=== PATIENT | female | born 1950 | race Caucasian/White ===

== ENCOUNTER → 2016-12-17 | Outpatient (CLI) | payer BC, OTHER ==
[~2016-12-17] MED LIST: ATOR-26 PO; CYAN10005 PO; HYD10 PO; HYDR10TA52 PO; SYN112 PO; WARF-246 PO; WARF-284 PO
[2016-12-17 18:14] LABS: ALT/SGPT 17 U/L (12-78); BLOOD UREA NITROGEN 16 mg/dl (7-18); BUN/CREATININE RATIO 17.7 (10-20); CALCIUM 8.5 mg/dl (8.5-10.1); CARBON DIOXIDE 25 mmol/L (21-32); CHLORIDE 100 mmol/L (98-107); CHOLESTEROL 220 mg/dl (0-200); CREATININE 0.91 mg/dl (0.60-1.20); GLUCOSE 97 mg/dl (70-99); POTASSIUM 3.5 mmol/L (3.5-5.1); SODIUM 135 mmol/L (136-145); TRIGLYCERIDES 256 mg/dl (0-150); VERY LOW DENSITY LIPOPROT CALC 51 mg/dl
[2016-12-17 18:21] LABS: BASO % 0.3 %; BASO ABS # 0.02 K/uL (0-0.2); COMPLETE YES; EOS % 0.8 %; HEMATOCRIT 34.7 % (37-47); IG% 0.2 %; LYMPH % 20.7 %; LYMPH ABS # 1.29 K/uL (1.2-3.4); MEAN CELL VOLUME 90.6 fL (80-100); MEAN CORPUSCULAR HEMOGLOBIN 30.8 pg (25-34); MEAN PLATELET VOLUME 9.7 fL (7.4-10.4); PLATELET COUNT 280 K/uL (130-400); RED BLOOD COUNT 3.83 M/uL (4.2-5.4); WHITE BLOOD COUNT 6.23 K/uL (4.8-10.8)
[2016-12-17 18:25] LABS: ALB/GLOB RATIO 0.9 (0.9-2); ALKALINE PHOSPHATASE 75 U/L (45-117); AST/SGOT 18 U/L (15-37); CHOLESTEROL/HDL RATIO 5.2; HDL CHOLESTEROL 42 mg/dl; LDL CHOLESTEROL CALCULATED 127 mg/dl; THYROID STIMULATING HORMONE 0.021 uIu/ml (0.300-4.500)
== END | disposition home or self-care (01) ==
LOC: C.LABBFT 12:14
PROVIDERS: ATTEND Internal Medicine Endocrinology, Diabetes & Metabolism
DX: E53.8 Deficiency of other specified B group vitamins (principal); E78.00 Pure hypercholesterolemia, unspecified; E23.0 Hypopituitarism; D64.9 Anemia, unspecified; E55.9 Vitamin D deficiency, unspecified; I82.4Z9 Acute embolism and thrombosis of unspecified deep veins of unspecified distal lower extremity

== ENCOUNTER → 2017-02-15 | Outpatient (CLI) | payer BC, OTHER ==
--- NOTE | 2017-02-24 10:49 | CODING QUERY MEDICAL NECESSITY ---
CQSUPPORTING DIAGNOSIS NEEDED A supporting diagnosis is required for the test/procedure performed on this patient in order for us to be reimbursed by the patient's insurance. Please provide a supporting diagnosis for the following test/procedure listed below next to the test name along with your signature. *If there is no additional diagnosis for this patient that would support the following test/procedure please document that below next to the test/procedure. Test(s)/Procedure(s) that require a supporting diagnosis: DOS 02/15/17 VITAMIN D TEST Provider Signature: Date: Thank you Chrystal Manuel Health Information Management Once completed, please kindly fax back to [phone] For questions please call [phone]
== END | disposition home or self-care (01) ==
LOC: C.LABBFT 11:59
PROVIDERS: ATTEND Internal Medicine
DX: E53.8 Deficiency of other specified B group vitamins (principal); E55.9 Vitamin D deficiency, unspecified; M81.0 Age-related osteoporosis without current pathological fracture; I82.4Z9 Acute embolism and thrombosis of unspecified deep veins of unspecified distal lower extremity

== ENCOUNTER → 2017-07-27 | Outpatient (CLI) | payer OTHER, MEDICARE | END | disposition home or self-care (01) | LOC: C.PAPS 14:57 | PROVIDERS: ATTEND Obstetrics & Gynecology | DX: Z12.4 Encounter for screening for malignant neoplasm of cervix (principal) ==

== ENCOUNTER → 2017-11-25 | Outpatient (CLI) | payer OTHER, MEDICARE | END | disposition home or self-care (01) | LOC: C.LABBFT 14:46 | PROVIDERS: ATTEND Internal Medicine Endocrinology, Diabetes & Metabolism | DX: E23.0 Hypopituitarism (principal); E03.8 Other specified hypothyroidism; E27.49 Other adrenocortical insufficiency ==

== ENCOUNTER → 2018-05-31 | Day surgery (SDC) | payer OTHER, MEDICARE ==
[2018-05-24 09:02] VITALS: BMI 38.0
[~2018-05-31] VITALS: Ht 162.6 cm; Wt 101.4 kg
[~2018-05-31] MED LIST changes: -ATOR-26 PO; +BUPR-83 PO; +CALC0.5C2 PO; -CYAN10005 PO; +LEVO112T4 PO; +LIDOCAINE HCL 2% 2 ML VIAL (20MG/ML) ONE; +PROPOFOL IV EMULSION 10 MG/ML 20 ML VIAL ONE; +SODIUM CHLORIDE 0.9% 500ML 500 ML IV ONE; -SYN112 PO; -WARF-246 PO; -WARF-284 PO; +WARF5TAB7 PO
[2018-05-31 10:43] VITALS: Ht 162.6 cm; Wt 101.4 kg
--- NOTE | 2018-05-31 11:04 | Endo History and Physical ---
History & Physical Date of Service: May 31, 2018. Chief Complaint: SCREENING FOR COLON CANCER Referring Physician: DR BENAVIDES History of Present Illness 67 yo CF who presents for screening colonoscopy. Past Surgical History Hx Cardiac Surgery: No Hx Internal Defibrillator: No Hx Pacemaker: No Hx Abdominal Surgery: No Hx of Implantable Prosthesis: No Hx Post-Op Nausea and Vomiting: No Hx Cancer Surgery: No Hx Thoracic Surgery: No Hx Orthopedic: No Hx Urinary Tract Surgery: No Family History None Social History Smoking Status: Never Smoker Hx Substance Use: No Hx Alcohol Use: No Allergies Coded Allergies: Penicillins (Verified Allergy, Mild, hives, 05/24/18) Sertraline (Verified Allergy, Unknown, acting funny, 05/24/18) Current Medications Reported Home Medications Medications Dose Route/Sig Max Daily Dose Days Date Category Rocaltrol (Calcitriol) 0.5 Mcg Cap 1 Cap PO BID 05/24/18 Reported Jantoven (Warfarin Sodium) 5 Mg Tab 1.5 Mg PO WK ON Tuesdays05/24/18 Reported Jantoven (Warfarin Sodium) 5 Mg Tab 5 Mg PO 6XWK 05/24/18 Reported Levothyroxine Sodium 112 Mcg Tab 1 Tab PO QAM 05/24/18 Reported Wellbutrin (Bupropion HCl) 100 Mg Tab 200 Mg PO QAM 05/24/18 Reported Cortef (Hydrocortisone) 10 Mg Tab 15 Mg PO QAM 05/24/18 Reported Cortef (Hydrocortisone) 10 Mg Tab 5 Mg PO QPM 05/24/18 Reported Vital Signs Weight (Kilograms): 101.36 Height (Feet): 5 Height (Inches): 4 Date Time Temp Pulse Resp B/P (MAP) Pulse Ox O2 Delivery O2 Flow Rate FiO2 05/31/18 10:42 36.8 85 18 172/84 (113) 95 Room Air Physical Exam General Appearance: WD/WN, no apparent distress Respiratory/Chest: Auscultation: breath sounds normal Cardiovascular: Heart Auscultation: RRR Abdomen: Bowel Sounds: normal Inspection & Palpation: soft, non-distended, no tenderness, guarding & rebound Assessment and Plan Assessment: 67 yo CF who presents for screening colonoscopy. Plan: Proceed with colonoscopy.
--- NOTE | 2018-05-31 12:33 | Discharge Instructions ---
Endoscopy Patient Instructions Date / Procedure(s) Performed May 31, 2018. Colonoscopy Allergy Information Coded Allergies: Penicillins (Verified Allergy, Mild, hives, 05/24/18) Sertraline (Verified Adverse Reaction, Unknown, acting funny, 05/31/18) Discharge Date / Findings May 31, 2018. Colon polyp Diverticulosis Internal hemorrhoids Medication Instructions Stopped Medication(s): ALL MEDICATIONS STOPPED SINCE 05/28/18 OK to resume all medications today as prescribed Reported Home Medications Medications Dose Route/Sig Max Daily Dose Days Date Category Rocaltrol (Calcitriol) 0.5 Mcg Cap 1 Cap PO BID 05/24/18 Reported Jantoven (Warfarin Sodium) 5 Mg Tab 1.5 Mg PO WK ON Tuesdays05/24/18 Reported Jantoven (Warfarin Sodium) 5 Mg Tab 5 Mg PO 6XW05/24/18 Reported Levothyroxine Sodium 112 Mcg Tab 1 Tab PO QAM 05/24/18 Reported Wellbutrin (Bupropion HCl) 100 Mg Tab 200 Mg PO QAM 05/24/18 Reported Cortef (Hydrocortisone) 10 Mg Tab 15 Mg PO QAM 05/24/18 Reported Cortef (Hydrocortisone) 10 Mg Tab 5 Mg PO QPM 05/24/18 Reported Provider Instructions Activity Restrictions - No exercising or heavy lifting for 24 hours. - Do not drink alcohol the day of the procedure. - Do not drive a car or operate machinery until the day after the procedure. - Do not make any important decisions or sign important papers in 24 hours after the procedure. Following Day: - Return to full activity which may include returning to work/school. Diet Start your diet with liquids and light foods (jello, soup, juice, toast). Then eat your usual diet if not nauseated. Treatment For Common After Affects For mild abdominal pain, bloating, or excessive gas: - Rest - Eat lightly - Lie on right side Follow-Up Information Follow-up with DR BENAVIDES as scheduled Anesthesia Information What You Should Know You have had a procedure that required some medicine to reduce anxiety and discomfort. This treatment is called moderate sedation. After receiving the treatment, you may be sleepy, but you will be able to breathe on your own. The effects of the treatment may last for several hours. Follow these instructions along with Activity/Diet recommendations noted above: * Do NOT do anything where dizziness or clumsiness would be dangerous. * Rest quietly at home today, then you can be up and about tomorrow. * Have a responsible person stay with you the rest of today. * You may have had an I.V. today. If so, you may take the dressing off later today. Recommendations Call your doctor if: * Trouble breathing * Continuous vomiting for more than 24 hours * Temperature above 101 degrees * Severe abdominal pain or bloating * Pain not relieved by pain medicine ordered * There is increased drainage or redness from any incision * A large amount of rectal bleeding greater than 2-3 tablespoons. (If you had a polyp/s removed or have hemorrhoids, a small amount of blood - from the rectum is to be expected.) * You have any unanswered questions or concerns. IN THE EVENT OF A SERIOUS EMERGENCY, GO TO THE NEAREST EMERGENCY ROOM Your discharge instructions were prepared by provider Marino Gonzalez. Patient Instructions Signature Page Lucia Schulz Patient (or Guardian) Signature/Date: I have read and understand the instructions given to me by my caregivers. Caregiver/RN/Doctor Signature/Date: The above-named patient and/or guardian has received patient instructions on this date. + Original Patient Signature Page (only) stays with chart. Please make copy for patient.
--- NOTE | 2018-05-31 12:41 | GI REPORT ---
Patient Name: Lucia Schulz Procedure Date: 05/31/2018 11:53 AM Date of : 1950 Admit Type: Outpatient Age: 67 Gender: Female Attending MD: Marino Gonzalez DO Procedure: Colonoscopy Providers: Marino Gonzalez DO Referring MD: Jerardo Grace Indications: Screening for colorectal malignant neoplasm Medicines: Monitored Anesthesia Care Complications: No immediate complications. Estimated Blood Loss: Estimated blood loss: none. Procedure: Pre-Anesthesia Assessment: - Prior to the procedure, a History and Physical was performed, and patient medications and allergies were reviewed. The patient's tolerance of previous anesthesia was also reviewed. The risks and benefits of the procedure and the sedation options and risks were discussed with the patient. All questions were answered, and informed consent was obtained. Prior Anticoagulants: The patient has taken no previous anticoagulant or antiplatelet agents. ASA Grade Assessment: II - A patient with mild systemic disease. After reviewing the risks and benefits, the patient was deemed in satisfactory condition to undergo the procedure. After I obtained informed consent, the scope was passed under direct vision. Throughout the procedure, the patient's blood pressure, pulse, and oxygen saturations were monitored continuously. The scope was introduced through the anus and advanced to the terminal ileum. The colonoscopy was performed without difficulty. The patient tolerated the procedure well. The quality of the bowel preparation was good. The terminal ileum, ileocecal valve, appendiceal orifice, and rectum were photographed. Findings: The perianal and digital rectal examinations were normal. A 4 mm polyp was found in the sigmoid colon. The polyp was sessile. The polyp was removed with a cold snare. Resection and retrieval were complete. Multiple small-mouthed diverticula were found in the sigmoid colon. Non-bleeding internal hemorrhoids were found during retroflexion. The hemorrhoids were small. Impression: - One 4 mm polyp in the sigmoid colon, removed with a cold snare. Resected and retrieved. - Diverticulosis in the sigmoid colon. - Non-bleeding internal hemorrhoids. Recommendation: - Resume previous diet. - Continue present medications. - Repeat colonoscopy for surveillance based on pathology results. - Return to primary care physician as previously scheduled. Marino Gonzalez DO 05/31/2018 12:41:03 PM This report has been signed electronically. Note Initiated On: 05/31/2018 11:53 AM Number of Addenda: 0 I attest to the content of the Intraoperative Record and orders documented therein, exceptions below {[id number]}
[2018-05-31 13:03] VITALS: BP 141/77; PULSE 66; O2SAT 100
--- NOTE | 2018-05-31 13:33 | Anesthesiology Progress Note ---
Anesthesia Post Op Note Date & Time May 31, 2018 at 13:32 Vital Signs Pain Intensity: 0 Vital Signs Past 12 Hours Date Time Temp Pulse Resp B/P (MAP) Pulse Ox O2 Delivery O2 Flow Rate FiO2 05/31/18 13:03 66 18 141/77 (98) 100 Room Air 05/31/18 12:49 72 18 150/57 (88) 100 Room Air 05/31/18 12:34 68 16 133/53 (79) 95 Room Air 05/31/18 10:42 36.8 85 18 172/84 (113) 95 Room Air Notes Mental Status: alert / awake / arousable, participated in evaluation Pt Amnestic to Procedure: Yes Nausea / Vomiting: adequately controlled Pain: adequately controlled Airway Patency, RR, SpO2: stable & adequate BP & HR: stable & adequate Hydration State: stable & adequate Anesthetic Complications: no major complications apparent
== END | disposition home or self-care (01) ==
LOC: C.GI 09:51
PROVIDERS: ATTEND Internal Medicine
DX: Z12.11 Encounter for screening for malignant neoplasm of colon (principal); D12.5 Benign neoplasm of sigmoid colon; K57.30 Diverticulosis of large intestine without perforation or abscess without bleeding; K64.8 Other hemorrhoids; F32.9 Major depressive disorder, single episode, unspecified; Z88.0 Allergy status to penicillin; Z88.8 Allergy status to other drugs, medicaments and biological substances; Z79.01 Long term (current) use of anticoagulants; Z79.899 Other long term (current) drug therapy

== ENCOUNTER 2020-05-03 09:28 | Inpatient (IN) ==
--- NOTE | 2020-04-12 14:49 | PAT Medication Instructions ---
Medication Instructions Date of Service April 12, 2020 Home Medications Medication Instructions Recorded calcitriol 0.5 mcg capsule 0.5 mcg PO BID #180 cap 02/09/20 calcitriol 0.5 mcg capsule 0.5 mcg PO BID acetaminophen [Tylenol Extra Strength] 1,000 - 1,500 mg PO Q6H PRN hydrocortisone 5 - 15 mg PO UD levothyroxine 137 mcg PO QAM warfarin 5 - 7.5 mg PO DAILY ASK your prescriber and surgeon warfarin 5 - 7.5 mg PO DAILY DO NOT take the morning of surgery calcitriol 0.5 mcg capsule 0.5 mcg PO BID Take morning of surgery With a small sip of water, OTHERWISE NOTHING TO EAT OR DRINK AFTER MIDNIGHT: levothyroxine 137 mcg PO QAM acetaminophen [Tylenol Extra Strength] 1,000 - 1,500 mg PO Q6H PRN (okay to take up to 4 hours prior to surgery if needed) hydrocortisone 5 - 15 mg PO UD (check with prescriber if stress dose needed) Take evening before surgery calcitriol 0.5 mcg capsule 0.5 mcg PO BID acetaminophen [Tylenol Extra Strength] 1,000 - 1,500 mg PO Q6H PRN hydrocortisone 5 - 15 mg PO UD Other Notes If you have any questions please call us at [phone] or [phone] or [phone] or [phone]
--- NOTE | 2020-04-17 11:43 | Anesthesiology Consultation ---
Date of Service April 17, 2020 Assessment & Plan (1) Encounter for pre-operative examination: Chart Review Chart Review: Acceptable Risk for Surgery (pending Covid testing) and Patient seen in Pre Admission Testing -Check PT/INR DOS Seen by endo 01/31/20 telemedicine visit= followed since 1999 in office- has very infrequent visits due to anxiety. 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 On replacement. Her last pituitary MRI was in 2009, almost no pituitary tissue, unchanged from 2002. Repeat circa 2019 (--> 2020) unless symptoms suggest to do sooner. (Pt states she stress doses medication PRN- was encouraged to check with steroid prescriber to see how much hydrocortisone needs stressed dose) Per PAT appt 04/17/20, resides in [facility]. Wears mask in public. Educated on following up with ulises's office re: Covid testing three days prior surgery. Pt educated on social distancing, self quarantining, and wearing mask both for herself and household contacts. Teaching & Discussion Pre-Anesthesia Teaching/Discussion Notes: Instructed NPO after midnight before surgery,except medications with 15 cc of water. Medication instructions provided according to the PAT guidelines. History Surgery Operation Date: 05/03/20 07:00 Proposed Procedures p Right Anterior Total Hip Arthroplasty - Paulo Tate DO Height/Weight Height: 5 ft 4 in Weight: 105 kg Allergies Allergy/AdvReac Type Severity Reaction Status Date / Time Penicillins Allergy Mild hives Verified 04/10/20 08:47 sertraline AdvReac Unknown acting Verified 04/10/20 08:47 funny Medications Home Medications Medication Instructions Recorded Confirmed Last Taken calcitriol 0.5 mcg capsule 0.5 mcg PO BID #180 cap 02/09/20 04/10/20 Unknown acetaminophen [Tylenol Extra 1,000 - 1,500 mg PO Q6H PRN 04/10/20 04/10/20 Unknown Strength] hydrocortisone 5 - 15 mg PO UD 04/10/20 04/10/20 Unknown levothyroxine 137 mcg PO QAM 04/10/20 04/10/20 Unknown warfarin 5 - 7.5 mg PO DAILY 04/10/20 04/10/20 Unknown Wheeled Walker #1 ea 04/17/20 04/17/20 Unknown Past Medical History Medical History (Updated 04/18/20 @ 10:59 by Francisca Wyman PA-C) Bilateral lower extremity edema Due water retention- cannot take diuretics due to urinary frequency Chronic steroid use DVT (deep venous thrombosis) X 2-WAS PLACED ON WARFARIN "YRS AGO"-NO ISSUES SINCE PER PT Hyperlipidemia NO MEDS CURRENTLY Hypothyroidism Idiopathic polyneuropathy IFG (impaired fasting glucose) Obesity 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 Follows with neurosurgery PRN. Last seen by eyad January 2020. Pt denies recent issues SOB (shortness of breath) on exertion 1 FLIGHT Urinary, incontinence, stress female Vitamin B12 deficiency Vitamin D deficiency Exercise / Class Metabolic Activity III < 4 Walking/Shop/Light housework (one flight of stairs- mild SOB but no chest pain ) Past Family History Family History Father Deep vein thrombosis of lower extremity Peripheral artery disease Aunt Breast cancer Grandmother (Paternal) Coronary heart disease Grandfather (Paternal) Coronary heart disease Mother Schizophrenia Past Surgical History Surgical History (Updated 04/17/20 @ 12:11 by Francisca Wyman PA-C) History of breast biopsy LEFT-BENIGN History of cataract surgery R/L History of colonoscopy History of tubal ligation Status post transsphenoidal pituitary resection 1993 [facility]/RADIATION Past Anesthesia History No Hx of Anesthesia Complications and No Family Hx of Anesthesia Complications History of PONV No Hx of PONV and No Hx of Motion Sickness Social History Smoking Status: Never smoker Do You Dip or Chew Tobacco: No Hx Alcohol Use: No Hx Substance Use: No Review of Systems Occ snoring - no history of sleep study Patient denies chest pain, shortness of breath, dyspnea on exertion, reflux, cough, wheezing, palpitations. No hx of seizures, stroke, MO. No hx blood transfusions Physical Exam Vital Signs VITALS BP 158/80 P 77 TEMP 98.6 SP02 98% RESP 16 Constitutional + obese; no acute distress ENMT Mouth: no TMJ clicking Thyromental Distance: > or= 3.5 Finger Breadths (3.5) Mallampati Class: I (smaller airway ) Missing molars Neck + short neck, + thick neck and + limited neck extension (significant ) Respiratory normal respiratory effort; no respiratory distress Auscultation: lungs clear to auscultation bilaterally; no wheezes Cardiovascular Rate/Rhythm: regular rate and regular rhythm Heart Sounds: no murmur Vessels: no carotid bruit Heart sounds diminished throughout Musculoskeletal Spine: no pain with cervical ROM Neurologic moves all extremities Psychiatric Orientation: alert Testing Laboratory Results 04/17/20 12:05 04/17/20 12:05 PT 17.4 Seconds (9.0-12.0) H 04/17/20 12:05 INR 1.7 (0.9-1.1) H 04/17/20 12:05 APTT 35.2 Seconds (21.0-31.0) H 04/17/20 12:05 Blood Type B Positive 04/17/20 12:05 Antibody Screen NEGATIVE 04/17/20 12:05 Electrocardiogram Date: 04/17/20 SR with 1st degree AVB at 68 bpm. Low voltage QRS. Nonspecific T wave abnormality. Compared to EKG from Sep 29, 2015- vent rate decreased by 38 bpm and criteria for septal infarct no longer present per cardio (by personal visual inspection T wave abnormality similar to 2014 EKG) Chest X-Ray Date: 04/17/20 Findings: + NAD
--- NOTE | 2020-04-17 12:34 | XRay Report ---
XR chest Pre-admission PA/Lat CLINICAL HISTORY: Preoperative chest COMPARISON STUDY: September 2015 FINDINGS: The cardiac and mediastinal contours are normal. There is no evidence of focal pulmonary co nsolidation. There is no evidence of failure. No pleural effusions are visualized.[ IMPRESSION: No active disease in the chest. ACT 112: Negative or not required by law. Electronically signed by: Desmond Zamora M.D. 04/17/2020 12:33 PM
[2020-04-17 13:00] LABS: Basophils # (auto) 0.02 K/uL (0-0.2); Basophils % (auto) 0.2 %; Eosinophils # (auto) 0.08 K/uL (0-0.5); Eosinophils % (auto) 0.8 %; Hematocrit (blood only) 34.9 % (37-47); Hemoglobin 11.1 g/dL (12.0-16.0); Immature Granulocytes # (auto) 0.05 K/uL (0.00-0.02); Immature Granulocytes % (auto) 0.5 %; Lymphocytes # (auto) 1.19 K/uL (1.2-3.4); Lymphocytes % (auto) 12.4 %; Mean Corpuscular Hemoglobin 29.5 pg (25-34); Mean Corpuscular Hgb Conc 31.8 g/dL (32-36); Mean Corpuscular Volume 92.8 fL (80-100); Mean Platelet Volume 9.5 fL (7.4-10.4); Monocytes # (auto) 0.48 K/uL (0.11-0.59); Neutrophils # (auto) 7.79 K/uL (1.4-6.5); Neutrophils % (auto) 81.1 %; Platelet Count 298 K/uL (130-400); RDW Standard Deviation 47.6 fL (36.4-46.3); Red Blood Count 3.76 M/uL (4.2-5.4); White Blood Count 9.61 K/uL (4.8-10.8)
[2020-04-17 13:35] LABS: INR 1.7 (0.9-1.1); Partial Thromboplastin Ratio 1.3; Partial Thromboplastin Time 35.2 Seconds (21.0-31.0); Prothrombin Time 17.4 Seconds (9.0-12.0)
[2020-04-17 13:44] LABS: Creatinine Clr Calc Pharmacy 64.9 ml/min; Est GFR (African American) 68.7; Est GFR (Non-African American) 59.3
--- NOTE | 2020-04-17 14:51 | Electrocardiogram Report ---
Test Reason : Blood Pressure : / mmHG Vent. Rate : 068 BPM Atrial Rate : 068 BPM P-R Int : 210 ms QRS Dur : 074 ms QT Int : 430 ms P-R-T Axes : 046 -06 -30 degrees QTc Int : 457 ms Sinus rhythm with 1st degree A-V block Low voltage QRS Nonspecific T wave abnormality Abnormal ECG When compared with ECG of 29-SEP-2015 19:10, Vent. rate has decreased BY 38 BPM Criteria for Septal infarct are no longer Present Confirmed by Sylvain Vail ([id number]) on 04/17/2020 2:50:40 PM Referred By: Paulo Tate Confirmed By:Sylvain Vail
--- NOTE | 2020-05-02 06:25 | History & Physical Report ---
Date of Service May 02, 2020 Assessment & Plan (1) Osteoarthritis of right hip: We will proceed with a right anterior total hip arthroplasty. Postoperatively she will be placed back on her Coumadin for DVT prophylaxis and kept overnight in the hospital for postoperative medical management. Elena is a low risk for joint placement surgery without any major comorbidities. Present on Admission?: Yes History of Present Illness Chief Complaint: Primary osteoarthritis of the right hip Primary Care Provider: Jerardo Grace MD Elena is a pleasant 69-year-old female who is been dealing with chronic increasing right hip and groin pain. She also has some low back pain. She ambulates with 2 crutches because of her pains. The lumbar x-rays did not look too bad but she has advanced osteoarthritis of her right hip. After failing conservative treatment, she has elected proceed with a right total hip arthroplasty. Allergies Allergy/AdvReac Type Severity Reaction Status Date / Time Penicillins Allergy Mild hives Verified 04/10/20 08:47 sertraline AdvReac Unknown acting Verified 04/10/20 08:47 funny Home Medications Home Medications Medication Instructions Recorded Confirmed Type calcitriol 0.5 mcg capsule 0.5 mcg PO BID #180 cap 02/09/20 04/10/20 Rx acetaminophen [Tylenol Extra 1,000 - 1,500 mg PO Q6H PRN 04/10/20 04/10/20 History Strength] hydrocortisone 5 - 15 mg PO UD 04/10/20 04/10/20 History levothyroxine 137 mcg PO QAM 04/10/20 04/10/20 History warfarin 5 - 7.5 mg PO DAILY 04/10/20 04/10/20 History Wheeled Walker #1 ea 04/17/20 04/17/20 Rx Past Med/Surg History Medical History (Updated 04/18/20 @ 10:59 by Francisca Wyman PA-C) Bilateral lower extremity edema Due water retention- cannot take diuretics due to urinary frequency Chronic steroid use DVT (deep venous thrombosis) X 2-WAS PLACED ON WARFARIN "YRS AGO"-NO ISSUES SINCE PER PT Hyperlipidemia NO MEDS CURRENTLY Hypothyroidism Idiopathic polyneuropathy IFG (impaired fasting glucose) Obesity 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 Follows with neurosurgery PRN. Last seen by endo January 2020. Pt denies recent issues SOB (shortness of breath) on exertion 1 FLIGHT Urinary, incontinence, stress female Vitamin B12 deficiency Vitamin D deficiency Surgical History (Updated 04/17/20 @ 12:11 by Francisca Wyman PA-C) History of breast biopsy LEFT-BENIGN History of cataract surgery R/L History of colonoscopy History of tubal ligation Status post transsphenoidal pituitary resection 1993 [facility]/RADIATION Family History Father Deep vein thrombosis of lower extremity Peripheral artery disease Aunt Breast cancer Grandmother (Paternal) Coronary heart disease Grandfather (Paternal) Coronary heart disease Mother Schizophrenia Social History Preferred Language: British Communication Ability: Effective Environmental Technician Required: No Beliefs That Will Affect Care: None marital status: Current Living Situation: Spouse current occupational status: retired Feels Safe at Home: Yes Smoking Status: Never smoker Second Hand Exposure: No ; Hx Alcohol Use: No Hx Substance Use: No Review of Systems Review of Systems: All systems reviewed & are unremarkable except as noted in HPI & below Physical Exam Constitutional: WD/WN, vitals as above Eyes: PERRL, conjunctivae normal, anicteric sclerae ENMT: external ear and nose normal, oropharynx normal Neck: trachea midline, no thyromegaly Respiratory: normal respiratory effort Cardiovascular: RRR, no murmur, no edema Gastrointestinal (Abdomen): normal bowel sounds, soft, nontender, no hepatosplenomegaly Musculoskeletal: Physical examination of the right hip reveals decreased range of motion with flexion, internal and external rotation. There is significant groin pain with forced internal rotation of the hip his leg lengths are essentially equal. Psychiatric: A+Ox3, euthymic affect Results & Data Results & Data ([facility]) Diagnostic Findings Radiographs of the right hip and pelvis demonstrate advanced osteoarthritis with joint space narrowing osteophyte formation and [id number] articulation. PG Care Time/CCT Total # of Minutes Spent Total Time Spent with Patient: Total time spent is greater than 50% in coordination of care (as documented) at patient's floor/unit and/or counseling patient: Coding Level of Care Code 96828 Initial Inpt Care Lvl 3 Diagnoses Osteoarthritis of right hip M16.11
[~2020-05-03 09:28] MED LIST changes: +ACETAMINOPHEN 500 MG TAB PO SCH; +BUPIVACAINE 0.5 % 5 MG/1 ML PF 10ML VIAL ONE; -BUPR-83 PO; -CALC0.5C2 PO; +CEFAZOLIN 2000MG 2,000 MG/15 ML SYR IV SCH; +FAMOTIDINE 20 MG TAB PO SCH; +GABAPENTIN 300 MG CAP PO SCH; -HYD10 PO; -HYDR10TA52 PO; -LEVO112T4 PO; -LIDOCAINE HCL 2% 2 ML VIAL (20MG/ML) ONE; +LR 500ML BOLUS, THEN 15ML/HR IV SCH; +LR 60ML/HR IV SCH; -PROPOFOL IV EMULSION 10 MG/ML 20 ML VIAL ONE; +ROPIVACAINE 0.5% HCL/PF 150 MG, BUPIVACAINE 0.5% MPF 30 ML, EPINEPHrine 30MG/30ML (OR U... INSTIL SCH; -SODIUM CHLORIDE 0.9% 500ML 500 ML IV ONE; +TRANEXAMIC ACID / 0.7% NACL 1,000 MG/100 ML BAG IV SCH; -WARF5TAB7 PO; +dexAMETHasone 4 MG TAB PO SCH
--- NOTE | 2020-05-03 10:21 | History & Physical Bridge Note ---
Date of Service May 03, 2020 History & Physical Bridge Note I have examined the patient, reviewed the History & Physical and in the interval since the performance of the History & Physical I have noted the following changes of clinical significance: no changes noted
[2020-05-03] MEDS ORDERED: MIDAZOLAM HCL 1 MG/ML 2ML VIAL ONE (10:50)
[2020-05-03] MEDS ORDERED: PROPOFOL IV EMULSION 10 MG/ML 20 ML VIAL IV ONE (10:50)
[2020-05-03] MEDS ORDERED: fentaNYL citrate 100 MCG/2 ML VIAL ONE ×3 (10:50→15:24)
[2020-05-03] MEDS ORDERED: LIDOCAINE HCL 2% 2 ML VIAL/AMP(20MG/ML) INFIL ONE (10:50)
[2020-05-03] MEDS ORDERED: LACTATED RINGER'S 500 ML IV ONE (11:55)
[2020-05-03] MEDS ORDERED: ORTHO JOINT ANESTHETIC ONE (12:19)
[2020-05-03 12:25] LABS: INR 1.5 (0.9-1.1); Partial Thromboplastin Ratio 1.2; Partial Thromboplastin Time 33.1 Seconds (21.0-31.0); Prothrombin Time 15.4 Seconds (9.0-12.0)
[2020-05-03] MEDS ORDERED: CEFAZOLIN 2,000 MG/15 ML IV PUSH IV ONE (12:30)
[2020-05-03] MEDS ORDERED: ONDANSETRON INJ 2 MG/ML 2 ML VIAL ONE (12:56)
[2020-05-03] MEDS ORDERED: ROCURONIUM BROMIDE 10 MG/ML 5 ML VIAL IV ONE (12:56)
[2020-05-03] MEDS ORDERED: ONDANSETRON INJ 2 MG/ML 2 ML VIAL IV PRN ×2 (13:17→16:40)
[2020-05-03] MEDS ORDERED: fentaNYL citrate 100 MCG/2 ML VIAL IV PRN (13:17)
[2020-05-03] MEDS ORDERED: ePHEDrine sulfate 50 MG/ML AMP IV PRN (13:17)
[2020-05-03] MEDS ORDERED: ATROPINE SULFATE 0.1 MG/ML 10ML SYR IV PRN (13:17)
[2020-05-03] MEDS ORDERED: TRANEXAMIC ACID / 0.7% NACL 1000MG/100ML BAG IV ONE (14:07)
--- NOTE | 2020-05-03 15:13 | Operative Report ---
PG Post Operative Report Pre & Post Diagnosis Operation Date: 05/03/20 13:40 Pre-Op Diagnosis: Right Hip Osteoarthritis Post-Op Diagnosis: Right Hip Osteoarthritis I identified the patient and participated in the time-out.: Yes Procedure Operation Date: 05/03/20 13:40 Actual Procedures p Right Anterior Total Hip Arthroplasty(Right) - Paulo Tate DO Surgeon Paulo Tate, Coning Machine Operator Paulo Bowman PAC Estimated Blood Loss 300 Findings Consistent with Post-Op Diagnosis Specimens Right femoral head Complications none Disposition Disposition: Recovery Room Indications Elena is a pleasant 69-year-old female who presented my office with chronic in creasing right hip and groin pain. X-rays and clinical examination were diagnostic for advanced osteoarthritis of the right hip. After failing conservative treatment, she elected to proceed with a right anterior total hip arthroplasty. Description of Procedure Implants used I used a Biomet Taperloc total hip arthroplasty system with a size 11 high offset micro Taperloc stem, a 50 mm G7 cup with a 25mm screw, an E1 polyethylene liner, a 36 mm ceramic head with a -6 neck. Elena arrived at the hospital for the above procedure. She was seen in the preoperative holding area and the operative extremity was identified and signed. She was given a spinal anesthetic, a preoperative antibiotic, and TXA. She was then taken back to the operating room and laid on the table in the supine position. She was given basic sedation. The operative leg was secured to a Puristst leg positioner. The hip was then prepped and draped in sterile f ashion. A timeout was done and the patient and the operative extremity was properly identified. An anterior approach was used. Dissection was taken down through the fascia and the tensor muscle belly was retracted laterally and the rectus was retracted medially. The circumflex vessels were identified and ligated. The capsule was then incised and tagged for later repair. The femoral neck was then cut and the femoral head was removed. The acetabulum was exposed. Time was spent doing a complete circumferential labral release. Sequential reaming of the acetabulum up to a size 49 reamer was done. Final reamings were done under fluoroscopy to ensure appropriate version. A Biomet 50 mm G7 cup was then impacted into place. A single 25 mm screw was placed. The E1 polyethylene liner was then snapped into place. Surrounding soft tissues were then injected with 100 cc of an orthopedic pain control cocktail. The proximal femur was then exposed. Sequential broaching up to a size 11 high offset broach was done. Off that broach a size 36 head with a -6 neck was trialed. The hip was reduced and fluoroscopic images showed anatomic alignment of the implants in acceptable length. The broach was removed. The final size 11 high offset micro Taperloc stem was then impacted into place. A ceramic 36 mm head with a -6 neck was then impacted onto the stem and the hip was reduced. Final fluoroscopic images showed anatomic alignment of the hip. The capsule was then closed with #1 Vicryl suture. A dilute betadyne lavage was then done for 3 minutes. The joint was then irrigated with normal saline solution. The fascia was closed with #1 PDS suture. Skin was closed with 2-0 Vicryl, mago, and a Silverlon dressing. She was then transferred to a hospital bed and taken to the post anesthesia care unit in stable condition. She tolerated the procedure well. Paulo Bowman PA-C, was present for the entire procedure. He was critical for patient positioning, prepping, draping, retraction exposure, wound closure and application of sterile dressing. I attest to the content of the Intraoperative Record and any orders documented therein. Any exceptions are noted below.
--- NOTE | 2020-05-03 15:19 | Fluoroscopy Report ---
FL hip RT 1V CLINICAL HISTORY: RT ANTERIOR COMPARISON STUDY: None FLUOROSCOPY TIME: 23 seconds NUMBER OF FLUOROSCOPIC IMAGES: 3 FINDINGS: Image intensifier support was provided for a right hip arthroplasty. IMPRESSION: Image intensifier support was provided for a right hip arthroplasty. ACT 112: Negative or not required by law. The above report was generated using voice recognition software. It may contain grammatical, syntax or spelling errors. Electronically signed by: Ole Bajwa M.D. 05/03/2020 3:18 PM
[2020-05-03] MEDS ORDERED: NEOSTIGMINE METHYLSULFATE 5 MG/5 ML SYR ONE (15:26)
[2020-05-03] MEDS ORDERED: GLYCOPYRROLATE 0.2 MG/ML VIAL ONE (15:26)
--- NOTE | 2020-05-03 16:20 | Anesthesiology Progress Note ---
Date of Service May 03, 2020 Anesthesia Post Procedure Vital Signs Vital Signs: Temp Pulse Resp BP Pulse Ox 05/03/20 16:15 36.8 C 56 L 16 132/63 100 05/03/20 16:05 64 20 143/62 H 100 05/03/20 15:55 63 8 L 148/74 H 100 05/03/20 15:48 36.0 C L 70 16 162/90 H 100 05/03/20 11:30 37.0 C 79 20 181/85 H 96 Pain Intensity Right Lower Back: Pain Intensity: 8 Right Hip: Pain Intensity: 0 Transfer of Care Handoff Completed per policy Notes Mental Status: alert / awake / arousable Patient Amnestic to Procedure: Yes Nausea / Vomiting: adequately controlled Pain: adequately controlled Airway Patency, RR, SpO2: stable & adequate BP & HR: stable & adequate Hydration State: stable & adequate Anesthetic Complications: no major complications apparent
--- NOTE | 2020-05-03 16:21 | XRay Report ---
XR hip 1V RT w pelvis CLINICAL HISTORY: Postop examination COMPARISON: None. DISCUSSION: There are postsurgical changes of a total right hip arthroplasty. There is no dislocation . There are overlying skin mago. There is air the soft tissues consistent with the history of rece nt surgery IMPRESSION: Postsurgical changes of a total right hip arthroplasty. ACT 112: Negative or not required by law. Electronically signed by: Desmond Zamroa M.D. 05/03/2020 4:19 PM
[2020-05-03] MEDS ORDERED: HYDROmorphone INJ 0.5 MG/0.5 ML SYR IV PRN (16:40)
[2020-05-03] MEDS ORDERED: bisacodyL 10 MG SUPP PR PRN (16:40)
[2020-05-03] MEDS ORDERED: OXYCODONE HCL IR 5 MG TAB (IMMEDIATE RELEASE) PO PRN (16:40)
[2020-05-03] MEDS ORDERED: METOCLOPRAMIDE HCL INJ 5 MG/ML 2 ML VIAL IV PRN (16:40)
[2020-05-03] MEDS ORDERED: NALOXONE HCL 0.4 MG/1 ML VIAL/CARP IV PRN (16:40)
[2020-05-03] MEDS ORDERED: HYDROCORTISONE 10 MG TAB PO SCH ×2 (16:40→21:00)
[2020-05-03] MEDS ORDERED: MAGNESIUM HYDROXIDE SUSP 30 ML UDC PO PRN (16:40)
[2020-05-03] MEDS: SODIUM CHLORIDE 0.9% 1000ML 1,000 ML IV SCH (16:50)
[2020-05-03] MEDS: KETOROLAC TROMETHAMINE 15 MG/ML VIAL IV SCH (17:28)
[2020-05-03] MEDS ORDERED: SENNA 8.6 MG TAB PO SCH (21:00)
[2020-05-03] MEDS: ACETAMINOPHEN 500 MG TAB PO SCH (21:04)
[2020-05-03] MEDS: DOCUSATE SODIUM 100 MG CAP PO SCH (21:04)
[2020-05-03] MEDS: CEFAZOLIN 2000MG 2,000 MG/15 ML SYR IV SCH (21:13)
[2020-05-04] MEDS: KETOROLAC TROMETHAMINE 15 MG/ML VIAL IV SCH ×2 (00:01→05:54)
[2020-05-04] MEDS: SODIUM CHLORIDE 0.9% 1000ML 1,000 ML IV SCH (03:32)
[2020-05-04] MEDS: CEFAZOLIN 2000MG 2,000 MG/15 ML SYR IV SCH (05:53)
[2020-05-04] MEDS: ACETAMINOPHEN 500 MG TAB PO SCH (05:55)
[2020-05-04 06:21] LABS: Hematocrit (blood only) 30.2 % (37-47); Hemoglobin 9.7 g/dL (12.0-16.0); Immature Granulocytes # (auto) 0.04 K/uL (0.00-0.02); Immature Granulocytes % (auto) 0.3 %; Lymphocytes % (auto) 4.3 %; Mean Corpuscular Hemoglobin 29.8 pg (25-34); Mean Corpuscular Hgb Conc 32.1 g/dL (32-36); Mean Corpuscular Volume 92.6 fL (80-100); Mean Platelet Volume 9.4 fL (7.4-10.4); Monocytes # (auto) 0.54 K/uL (0.11-0.59); Monocytes % (auto) 3.9 %; Neutrophils # (auto) 12.74 K/uL (1.4-6.5); Neutrophils % (auto) 91.5 %; Platelet Count 247 K/uL (130-400); RDW Coefficient of Variation 13.8 % (11.5-14.5); RDW Standard Deviation 46.9 fL (36.4-46.3); Red Blood Count 3.26 M/uL (4.2-5.4); White Blood Count 13.92 K/uL (4.8-10.8)
[2020-05-04 06:30] LABS: INR 1.3 (0.9-1.1); Prothrombin Time 13.8 Seconds (9.0-12.0)
[2020-05-04] MEDS ORDERED: LEVOTHYROXINE SODIUM 137 MCG TABLET PO SCH (06:30)
[2020-05-04 06:57] LABS: BUN Creatinine Ratio 15.8 (10-20); Calcium 8.1 mg/dl (8.5-10.1); Creatinine Clr Calc Pharmacy 50.9 ml/min; Est GFR (African American) 51.2; Est GFR (Non-African American) 44.2
--- NOTE | 2020-05-04 07:36 | Orthopedic Progress Note ---
Date of Service May 04, 2020 Assessment & Plan (1) History of right hip replacement: Overall she is doing very well. She is not having much pain in the right hip. She will be seen by physical therapy later this morning for ambulation and range of motion exercises. She is on Coumadin for DVT prophylaxis. If she does well with physical therapy then she can be discharged home later today. She will follow-up with orthopedics in 2 weeks. Present on Admission?: Yes Subjective Elena was seen and examined at bedside this morning. Overall she seems to be doing well. She has been up and ambulating to the bathroom. Her pain is controlled and she has no complaints. Physical Exam Musculoskeletal: Physical examination of the right hip shows the dressing to be clean and dry. Her leg lengths are equal. She has active dorsiflexion and plantarflexion of her right ankle. Results & Data ([facility]) Vital Signs (Past 12 Hours) Vital Signs Temp Pulse Pulse Resp BP Pulse Ox 05/04/20 05:59 36.6 C 61 14 162/82 H 97 05/04/20 03:13 36.4 C L 55 L 14 146/79 H 98 05/03/20 23:54 36.5 C 59 L 16 165/80 H 96 05/03/20 19:56 36.4 C L 58 L 18 138/65 97 Laboratory Results H & H 04/17/20 05/04/20 Range/Units 12:05 05:52 Hgb 11.1 L 9.7 L (12.0-16.0) g/dL Hct 34.9 L 30.2 L (37-47) % Coagulation 04/17/20 05/03/20 05/04/20 Range/Units 12:05 12:02 05:52 INR 1.7 H 1.5 H 1.3 H (0.9-1.1) Diagnostic Findings Postoperative x-rays of the right hip show the prosthesis to be in anatomic alignment without any evidence of fracture, dislocation, or loosening. PG Care Time/CCT Total # of Minutes Spent Total Time Spent with Patient: Total time spent is greater than 50% in coordination of care (as documented) at patient's floor/unit and/or counseling patient: Coding Level of Care Code None Diagnoses History of right hip replacement Z96.641
--- NOTE | 2020-05-04 07:37 | Discharge Summary ---
Date of Service May 04, 2020 Admission HPI Per Admitting Provider Elena is a pleasant 69-year-old female who is been dealing with chronic increasing right hip and groin pain. She also has some low back pain. She ambulates with 2 crutches because of her pains. The lumbar x-rays did not look too bad but she has advanced osteoarthritis of her right hip. After failing conservative treatment, she has elected proceed with a right total hip arthroplasty. Principal Diagnosis Right total hip arthroplasty Discharge Data Allergies Allergy/AdvReac Type Severity Reaction Status Date / Time Penicillins Allergy Mild hives Verified 05/03/20 11:54 sertraline AdvReac Unknown acting Verified 05/03/20 11:54 funny Consultations 05/04/20 08:00 Consult Case Management - Discharge Planning Routine Procedures Performed Operation Date: 05/03/20 13:40 Actual Procedures p Right Anterior Total Hip Arthroplasty(Right) - Paulo Tate DO Ordered Studies 05/03/20 13:40 FL fluoroscopy <1hr Routine FL hip RT 1V Routine Hospital Course (1) History of right hip replacement: On May 03, 2020 Elena arrived at [facility] and underwent a right anterior total hip arthroplasty without complication. She had a general anesthetic. Postoperatively she was started on Coumadin for DVT prophylaxis and transferred back to the general orthopedic floors. Her hospital course was uneventful. On postop day #1 her H&H was stable and her pain was well contro lled. She was able to participate well with physical therapy doing ambulation and range of motion exercises. She was then discharged home. She will follow- up with orthopedics in 2 weeks. Total Time Total Time Spent Total Time Spent (In Minutes): 20 Discharge Plan Discharge Items Patient Disposition: Home - Home Health Services Reason For Visit: Right Hip Degenerative Joint Disease Discharge Diagnosis: Right total hip arthroplasty Activity: As commented below Non-emergency contact: Surgeon Call non-emergency contact if: your wound has increased redness and your wound has increased drainage Follow-up/Referrals: Jerardo Grace III, MD [Primary Care Provider] - Diet: Regular Addtl Attending Provider Instructions: Activity and Therapy Recommendations: * If you are using [facility] then therapy will be provided at your home until they feel you have accomplished all of your goals. * If you are using [facility] then Physical Therapy will be provided until they feel you are ready to start Outpatient Physical Therapy. * If you are not using home therapy then Outpatient Physical Therapy should start about 3-5 days from your day of surgery. Therapy will last about 6-10 weeks * You were shown a series of exercises in the hospital. Do these exercises three times each day including the exercises you were shown in physical therapy. * Get up and walk several times each day.~ For the first four weeks, try not to stand or walk for more than one hour at a time. If you do stand or walk for more than one hour, you will not hurt anything, but your leg will likely swell.~~ * As you feel comfortable, you may change from the walker or crutches to a cane and~then to independent walking. Medications: * Narcotic You will likely be sent home from the hospital with a prescription for the narcotic pain medication that worked best throughout your stay. * Continue taking your Coumadin as directed. * Other medications may be prescribed for specific circumstances. If you have any questions, please call the office at . * Resume previous home medications unless otherwise instructed TEDs/Elastic Stockings: The white elastic stockings help limit swelling and prevent blood clots from forming in your legs. The more you wear them, the more they work. Wear them for six weeks. Dressing Care: Leave the Silverlon dressing in place for 7 days. After 7 days you may remove the dressing. Then, you may leave the mago open to air or cover them with a dry dressing so they do not rub on your pants. The mago will be removed at your 2 week follow-up appointment. Showering: You may shower immediately with the Silverlon dressing. Let the shower spray hit your opposite side and slowly pat the dressing dry. Do not soak the dressing. After the dressing is removed you may shower normally with the mago exposed. Let soapy water run over the mago and pat them dry. Things To Watch For: * Drainage from the incision site that occurs more than one week after your surgery. * Increased redness at the incision site. * Fever above 102 degrees Fahrenheit. * Unusual chest pain or shortness of breath. * Call [facility] at with any of the above problems Follow-Up Visit: Follow-up with Dr. Tate's PA (Paulo Bowman) 2-3 weeks after your day of surgery. He will remove your mago and answer any questions. If you have any additional questions or concerns, Dr Tate is usually in the office at the same time and will be available An appointment was probably scheduled when you signed-up for surgery in the office. If you have any questions call Office Instructions: More detailed instructions as well as Frequently Asked Questions were provided in a folder by our office when you signed-up for surgery. Please review these instructions when you get home. If you have any further questions or concerns, please feel free to call the office at [phone] Pending Studies at Discharge: No Stand-Alone Forms: [facility] Medications and DC Order Prescriptions: New oxycodone 5 mg Tablet 5 mg PO Q4H PRN (Reason: pain) Qty: 30 RF: 0 Continued calcitriol 0.5 mcg capsule 0.5 mcg PO BID Qty: 180 RF: 0 (DME) Wheeled Walker Misc See Rx Instructions .ROUTE .MEDSUPPLY Qty: 1 RF: 0 levothyroxine 137 mcg tablet 137 mcg PO QAM RF: 0 acetaminophen [Tylenol Extra Strength] 500 mg Tablet 1,000 - 1,500 mg PO Q6H PRN (Reason: Pain) RF: 0 hydrocortisone 10 mg tablet 5 - 15 mg PO UD RF: 0 warfarin 5 mg tablet 5 - 7.5 mg PO DAILY RF: 0 Discharge Orders: Discharge Order (Routine); Ordered 05/04/20 Ordered By: Paulo Tate Admission Data Admit Date/Time: 05/03/20 15:45 Attending Provider: Paulo Tate Admit Provider: Paulo Tate Primary Care Provider: Jerardo Grace III Coding Level of Care Code D/C Day Management <30 mins Diagnoses History of right hip replacement Z96.641
[2020-05-04] MEDS ORDERED: dexAMETHasone 4 MG TAB PO SCH (08:00)
[2020-05-04] MEDS: DOCUSATE SODIUM 100 MG CAP PO SCH (08:26)
[2020-05-04] MEDS ORDERED: MULTIVITAMIN TAB PO SCH (09:00)
[2020-05-04] MEDS ORDERED: HYDROCORTISONE 10 MG TAB PO SCH (09:00)
[2020-05-04] MEDS ORDERED: WARFARIN SOD 5 MG TAB PO SCH ×2 (09:00)
[2020-05-04] MEDS ORDERED: CEFAZOLIN 2000MG 2,000 MG/15 ML SYR IV ONE (12:17)
[2020-05-06] MEDS ORDERED: WARFARIN SOD 7.5 MG TAB PO SCH (09:00)
== END 2020-05-04 11:56 | disposition home health service (06) | DRG 470 ==
LOC: ASU 09:28 → 3E 15:45

== ENCOUNTER 2020-12-20 01:52 | Inpatient (IN) ==
--- NOTE | 2020-12-20 02:21 | Emergency Department Note ---
Impression & Plan Acute alteration in mental status, Acute UTI, Hypokalemia ED Provider Note NAME: GISELA MANZANO AGE: 70 SEX: F ARRIVES VIA: Ambulance INFORMANT: Patient's ED PROVIDER(S): Parul Cristobal DO CHIEF COMPLAINT: Altered mental status PLAN: Disposition: Admitted to the [facility] service Condition: Stable MEDICAL DECISION MAKING: This is a 70-year-old female patient who presents to the emergency department with a fever and altered mental status. The patient collapsed to the floor today at home and EMS was called when her noticed that she was confused and unable to get herself up off the floor. CT scan of the brain was negative. There is no significant leukocytosis or signs of been infection but the patient had a fever and evidence of urinary tract infection. explains the patient had a urinary tract infection approximately 6 weeks ago for which she took antibiotics. I did review previous urine cultures. She was started on IV Levaquin. While the patient was waiting to go upstairs to her inpatient bed, she got up to the bathroom and had heavy bleeding in the toilet. This was concerning as the patient is anticoagulated with an INR greater than 3. I did a quick exam of the perineum and there appeared to be blood coming from her vagina. We ordered a pelvic ultrasound which was essentially unremarkable. The patient will be admitted by the [facility] service. Triage Nursing notes reviewed and agree them. Additional history obtained from patient's who is at the bedside Prior medical records reviewed Vital Signs: reviewed and remarkable for fever and hypertension Differential diagnosis: Sepsis, UTI, intracranial hemorrhage, Covid, pneumonia, SBP ER treatment provided: Patient received 1 L of normal saline solution from EMS We administered IV Levaquin. Diagnostics interpreted by me: ECG: Sinus tachycardia at 101 with a poor baseline due to artifact. There is no ST segment elevation or signs of ischemia. There is no ectopy. This EKG was compared to one from March 2020 and there is evidence of an anterior infarct present now. Cardiac Monitoring: Normal sinus rhythm of 80 Laboratory studies: See below Imaging studies: As per stat rad CT head: Comparison MRI brain 06/06/2010 Intracranial atherosclerosis. Encephalomalacia in the bilateral anterior medial frontal lobes. Involutional and chronic small vessel ischemic changes. No ICH, mass-effect, or edema. No skull fracture. Sinuses and mastoid air cells are clear. Ultrasound pelvis: The uterus is not well seen transabdominally. Transvaginal images demonstrate a uterus measuring 2.5 x 3.9 x 1.9 cm. The myometrium is unremarkable. The endometrial stripe is normal measuring 2 mm. The ovaries are obscured. No free fluid is seen. HPI: 70/F arrives for evaluation of altered mental status. The patient developed chills on Wednesday evening after receiving her second Covid vaccine. The patient woke up morning feeling generally ill with persistent chills. As the day progressed, the patient seemed to be feeling okay until this evening when she began to feel ill again complaining of epigastric abdominal pain. Patient's explains that the patient continued to feel generally ill and was moaning as she was walking about the house. He then heard the patient fall in the living room. She then had an altered mental status and was unwilling to help get herself up off the floor. EMS was called and she persisted with confusion and was noted to have a fever 103.2 ROS: The patient could not complete a review of systems as she has an altered mental status PAST MEDICAL HISTORY:See Below PAST SURGICAL HISTORY:See Below FAMILY HISTORY:See Below SOCIAL HISTORY:See Below HOME MEDICATIONS:See list ALLERGIES:See list VITALS:See Below PHYSICAL EXAMINATION: HEENT: Head - normocephalic and atraumatic Pupils are equal, round, and reactive to light. Extraocular eye muscles are intact, and sclera are anicteric. Nose - moist nasal mucosa without discharge. Mouth - moist buccal mucosa. Oropharynx is nonerythematous and there is no tonsillar exudate or edema noted. Neck: Supple; no JVD or nuchal rigidity Heart: Regular rate and rhythm. There is a normal S1 and S2 with no murmurs, clicks, or gallops appreciated. Lungs: Clear to auscultation bilaterally with no wheezes, rales, or rhonchi. Abdomen: Soft, mild to moderate tenderness to palpation in the epigastrium with some voluntary guarding. Nondistended, with good bowel sounds. There are no palpable pulsatile masses or hepatosplenomegaly. There is no guarding, rigidity, or rebound noted. Extremities: No evidence of cyanosis, clubbing, or edema. There are easily palpable peripheral pulses. Skin: warm and dry with good turgor and no rashes. Neuro: The patient seems lethargic and sometimes slow to arouse. She remains quite confused unable to answer simple questions. She is moving all 4 extremities. ED COURSE: Times/Reassessments: 0200: Patient was evaluated in room C9. A complete history and physical was performed. Septic protocol was performed. An order was placed for continuous cardiac monitoring. The patient was in a normal sinus rhythm at a rate of 80. The patient had received a normal saline bolus of 1 L. Nursing staff catheterized the patient for a urine specimen. A Covid swab was obtained. A portable chest x-ray was performed. The patient will go for CT scan of the brain. Patient's urine seemed to be infected. I did review previous urine cultures and they appear to be pansensitive. Patient does have a penicillin allergy so she was treated with IV Levaquin. Nursing staff alerted me that the patient had significant blood within the toilet. I did perform a quick exam of the perineum and the blood did not seem to be coming from the rectum but seem to be coming from the vagina. Patient will go for pelvic ultrasound. 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 Follows with neurosurgery PRN. Last seen by endo January 2020. Pt denies recent issues SOB (shortness of breath) on exertion 1 FLIGHT Urinary, incontinence, stress female Vitamin B12 deficiency Vitamin D deficiency Surgical History History of breast biopsy LEFT-BENIGN History of cataract surgery R/L History of colonoscopy (05/31/18) Dr. Gonzalez, sigmoid diverticulosis, 4 mm sigmoid tubular adenoma polyp removed, recheck 5 years History of right hip replacement (~04/2020) History of tubal ligation Status post transsphenoidal pituitary resection 1993 [facility] Family History Father Deep vein thrombosis of lower extremity Peripheral artery disease Aunt Breast cancer Grandmother (Paternal) Coronary heart disease Grandfather (Paternal) Coronary heart disease Mother Schizophrenia Denies family history of Ovarian cancer Prostate cancer Myocardial infarction Colorectal cancer Social History Smoking Status: Never smoker Second Hand Exposure: No; Hx Alcohol Use: No Hx Substance Use: No Preferred Language: Greenlandic Communication Ability: Effective Visual Impairment: No Limitations Hearing Ability: Normal [place] Required: No Beliefs That Will Affect Care: None marital status: Current Living Situation: Spouse current occupational status: retired Feels Safe at Home: Yes Dental Care, Regularly: No Physical Activity Frequency: Does not Exercise Seatbelt Use: sometimes Assistive Devices: Walker Allergies Allergies Allergy/AdvReac Type Severity Reaction Status Date / Time Penicillins Allergy Mild hives Verified 12/20/20 03:29 sertraline AdvReac Intermediate acting Verified 12/20/20 03:29 funny Home Meds Home Medications Medication Instructions Recorded Confirmed acetaminophen [Tylenol Extra 1,000 - 1,500 mg PO Q6H PRN 04/10/20 12/20/20 Strength] levothyroxine 137 mcg PO QAM 04/10/20 12/20/20 Previous Rx's Medication Instructions Recorded Wheeled Walker #1 ea 04/17/20 hydrocortisone 10 mg tablet 10 mg PO .COMPLEX 90 Days #90 tab 07/29/20 warfarin 5 mg tablet 5 - 7.5 mg PO DAILY #100 tab 08/05/20 oxybutynin chloride 5 mg 5 mg PO DAILY #30 tab 10/14/20 tablet,extended release 24 hr Results & Data (ED) Vital Signs Vital Signs - 24 hr 12/20/20 01:56 12/20/20 02:32 12/20/20 02:34 Temperature 38.1 C H Temperature Source Oral Pulse Rate 97 H 97 H Pulse Rate from SpO2 Sensor Respiratory Rate 24 22 Respiratory Effort / Characteristics Non-Labored Spontaneous Respiratory Depth Normal Blood Pressure 187/116 H 188/112 H Blood Pressure Mean 139 137 Pulse Oximetry 97 94 95 Oxygen Delivery Method Room Air Room Air Sepsis Recent Fever Within 48 Hours Yes Sepsis New/Unexplained Change in Mental Status Yes Sepsis Action Taken by Nursing Physician Notified 12/20/20 03:00 12/20/20 03:26 12/20/20 03:30 Temperature Temperature Source Pulse Rate 85 88 Pulse Rate from SpO2 Sensor 85 87 Respiratory Rate 39 H 22 22 Respiratory Effort / Characteristics Non-Labored Spontaneous Respiratory Depth Blood Pressure 190/84 H 176/83 H Blood Pressure Mean 119 114 Pulse Oximetry 98 96 98 Oxygen Delivery Method Room Air Sepsis Recent Fever Within 48 Hours Sepsis New/Unexplained Change in Mental Status Sepsis Action Taken by Nursing Laboratory Data Result diagrams: 12/20/20 02:10 12/20/20 02:10 Lab Results 12/20/20 12/20/20 12/20/20 Range/Units 02:10 02:10 02:10 WBC 6.17 (4.8-10.8) K/uL RBC 4.07 L (4.2-5.4) M/uL Hgb 12.2 (12.0-16.0) g/dL Hct 35.4 L (37-47) % MCV 87.0 (80-100) fL MCH 30.0 (25-34) pg MCHC 34.5 (32-36) g/dL RDW Std Deviation 43.1 (36.4-46.3) fL RDW Coeff of Mckayla 13.5 (11.5-14.5) % Plt Count 214 (130-400) K/uL MPV 8.8 (7.4-10.4) fL Immature Gran % (Auto) 1.0 % Neut % (Auto) 83.5 % Lymph % (Auto) 12.3 % White % (Auto) 2.8 % Eos % (Auto) 0.2 % Baso % (Auto) 0.2 % Neut # (Auto) 5.16 (1.4-6.5) K/uL Lymph # (Auto) 0.76 L (1.2-3.4) K/uL White # (Auto) 0.17 (0.11-0.59) K/uL Eos # (Auto) 0.01 (0-0.5) K/uL Baso # (Auto) 0.01 (0-0.2) K/uL Immature Gran # (Auto) 0.06 H (0.00-0.02) K/uL PT 34.5 H (9.0-12.0) Seconds INR 3.8 H (0.9-1.1) APTT 48.9 H* (21.0-31.0) Seconds PTT Ratio 1.9 Sodium 136 (136-145) mmol/L Potassium 3.1 L (3.5-5.1) mmol/L Chloride 103 (98-107) mmol/L Carbon Dioxide 25 (21-32) mmol/L Anion Gap 8.0 (3-11) BUN 15 (7-18) mg/dl Creatinine 1.14 (0.6-1.2) mg/dl Est Cr Clr Drug Dosing 58.5 ml/min Est GFR ( Amer) 56.8 Est GFR (Non-Af Amer) 49.0 BUN/Creatinine Ratio 12.9 (10-20) Glucose 95 (70-99) mg/dl Lactate (0.4-2.0) mmol/L Calcium 8.1 L (8.5-10.1) mg/dl Magnesium 1.8 (1.8-2.4) mg/dl Total Bilirubin 0.6 (0.2-1) mg/dl AST 23 (15-37) U/L ALT 18 (12-78) U/L Alkaline Phosphatase 67 (45-117) U/L Total Protein 7.4 (6.4-8.2) gm/dl Albumin 3.2 L (3.4-5.0) gm/dl Globulin 4.2 H (2.5-4.0) gm/dl Albumin/Globulin Ratio 0.8 L (0.9-2) Urine Color Urine Appearance (Clear) Urine pH (4.5-7.5) Ur Specific [place] (1.000-1.030) Urine Protein (Negative) Urine Glucose (UA) (Negative) Urine Ketones (Negative) Urine Blood (Negative) Urine Nitrite (Negative) Urine Bilirubin (Negative) Urine Urobilinogen (Negative) Ur Leukocyte Esterase (Negative) Urine WBC (Auto) (0-5) /hpf Urine RBC (Auto) (0-4) /hpf U Hyaline Cast (Auto) (0-5) /lpf U Epithel Cells (Auto) (0-5) /lpf Urine Bacteria (Auto) (Negative) COVID-19 Eval Order SARS-CoV-2 (PCR) (Negative) Influenza Type A (PCR) (Neg) Influenza Type B (PCR) (Neg) RSV (RT-PCR) (Neg) 12/20/20 12/20/20 12/20/20 Range/Units 02:10 02:19 02:32 WBC (4.8-10.8) K/uL RBC (4.2-5.4) M/uL Hgb (12.0-16.0) g/dL Hct (37-47) % MCV (80-100) fL MCH (25-34) pg MCHC (32-36) g/dL RDW Std Deviation (36.4-46.3) fL RDW Coeff of Mckayla (11.5-14.5) % Plt Count (130-400) K/uL MPV (7.4-10.4) fL Immature Gran % (Auto) % Neut % (Auto) % Lymph % (Auto) % White % (Auto) % Eos % (Auto) % Baso % (Auto) % Neut # (Auto) (1.4-6.5) K/uL Lymph # (Auto) (1.2-3.4) K/uL White # (Auto) (0.11-0.59) K/uL Eos # (Auto) (0-0.5) K/uL Baso # (Auto) (0-0.2) K/uL Immature Gran # (Auto) (0.00-0.02) K/uL PT (9.0-12.0) Seconds INR (0.9-1.1) APTT (21.0-31.0) Seconds PTT Ratio Sodium (136-145) mmol/L Potassium (3.5-5.1) mmol/L Chloride (98-107) mmol/L Carbon Dioxide (21-32) mmol/L Anion Gap (3-11) BUN (7-18) mg/dl Creatinine (0.6-1.2) mg/dl Est Cr Clr Drug Dosing ml/min Est GFR ( Amer) Est GFR (Non-Af Amer) BUN/Creatinine Ratio (10-20) Glucose (70-99) mg/dl Lactate 1.8 (0.4-2.0) mmol/L Calcium (8.5-10.1) mg/dl Magnesium (1.8-2.4) mg/dl Total Bilirubin (0.2-1) mg/dl AST (15-37) U/L ALT (12-78) U/L Alkaline Phosphatase (45-117) U/L Total Protein (6.4-8.2) gm/dl Albumin (3.4-5.0) gm/dl Globulin (2.5-4.0) gm/dl Albumin/Globulin Ratio (0.9-2) Urine Color Yellow Urine Appearance Clear (Clear) Urine pH 5.5 (4.5-7.5) Ur Specific [place] 1.016 (1.000-1.030) Urine Protein 1+ H (Negative) Urine Glucose (UA) Negative (Negative) Urine Ketones Negative (Negative) Urine Blood 3+ H (Negative) Urine Nitrite Positive A (Negative) Urine Bilirubin Negative (Negative) Urine Urobilinogen Negative (Negative) Ur Leukocyte Esterase Trace H (Negative) Urine WBC (Auto) 5-10 H (0-5) /hpf Urine RBC (Auto) 10-30 H (0-4) /hpf U Hyaline Cast (Auto) 1-5 (0-5) /lpf U Epithel Cells (Auto) 5-10 H (0-5) /lpf Urine Bacteria (Auto) 4+ H (Negative) COVID-19 Eval Order [facility]Rsv at [facility] SARS-CoV-2 (PCR) (Negative) Influenza Type A (PCR) (Neg) Influenza Type B (PCR) (Neg) RSV (RT-PCR) (Neg) 12/20/20 Range/Units 02:32 WBC (4.8-10.8) K/uL RBC (4.2-5.4) M/uL Hgb (12.0-16.0) g/dL Hct (37-47) % MCV (80-100) fL MCH (25-34) pg MCHC (32-36) g/dL RDW Std Deviation (36.4-46.3) fL RDW Coeff of Mckayla (11.5-14.5) % Plt Count (130-400) K/uL MPV (7.4-10.4) fL Immature Gran % (Auto) % Neut % (Auto) % Lymph % (Auto) % White % (Auto) % Eos % (Auto) % Baso % (Auto) % Neut # (Auto) (1.4-6.5) K/uL Lymph # (Auto) (1.2-3.4) K/uL White # (Auto) (0.11-0.59) K/uL Eos # (Auto) (0-0.5) K/uL Baso # (Auto) (0-0.2) K/uL Immature Gran # (Auto) (0.00-0.02) K/uL PT (9.0-12.0) Seconds INR (0.9-1.1) APTT (21.0-31.0) Seconds PTT Ratio Sodium (136-145) mmol/L Potassium (3.5-5.1) mmol/L Chloride (98-107) mmol/L Carbon Dioxide (21-32) mmol/L Anion Gap (3-11) BUN (7-18) mg/dl Creatinine (0.6-1.2) mg/dl Est Cr Clr Drug Dosing ml/min Est GFR ( Amer) Est GFR (Non-Af Amer) BUN/Creatinine Ratio (10-20) Glucose (70-99) mg/dl Lactate (0.4-2.0) mmol/L Calcium (8.5-10.1) mg/dl Magnesium (1.8-2.4) mg/dl Total Bilirubin (0.2-1) mg/dl AST (15-37) U/L ALT (12-78) U/L Alkaline Phosphatase (45-117) U/L Total Protein (6.4-8.2) gm/dl Albumin (3.4-5.0) gm/dl Globulin (2.5-4.0) gm/dl Albumin/Globulin Ratio (0.9-2) Urine Color Urine Appearance (Clear) Urine pH (4.5-7.5) Ur Specific [place] (1.000-1.030) Urine Protein (Negative) Urine Glucose (UA) (Negative) Urine Ketones (Negative) Urine Blood (Negative) Urine Nitrite (Negative) Urine Bilirubin (Negative) Urine Urobilinogen (Negative) Ur Leukocyte Esterase (Negative) Urine WBC (Auto) (0-5) /hpf Urine RBC (Auto) (0-4) /hpf U Hyaline Cast (Auto) (0-5) /lpf U Epithel Cells (Auto) (0-5) /lpf Urine Bacteria (Auto) (Negative) COVID-19 Eval Order SARS-CoV-2 (PCR) NEGATIVE (Negative) Influenza Type A (PCR) Negative (Neg) Influenza Type B (PCR) Negative (Neg) RSV (RT-PCR) Negative (Neg) Administered Medications Metoprolol Tartrate (Metoprolol Tartrate 1 Mg/Ml Vial) 5 mg IV Q4 PRN PRN Reason: Hypertension Stop: 01/19/21 07:59 Last Admin: 12/20/20 04:29 Dose: 5 mg Documented by: [id number] Discontinued Medications Famotidine (Famotidine 20mg/5ml Iv Push) Confirm Administered Dose 20 mg IV .STK-MED ONE Stop: 12/20/20 05:21 Last Admin: 12/20/20 05:22 Dose: 20 mg Documented by: [id number] Sodium Chloride (Nss) 500 mls @ 999 mls/hr IV .Q31M ONE Stop: 12/20/20 03:42 Last Admin: 12/20/20 03:27 Dose: Not Given Documented by: [id number] Levofloxacin/Dextrose (Levaquin/D5w) 750 mg in 150 mls @ 100 mls/hr IV NOW STA Stop: 12/20/20 04:41 Last Infusion: 12/20/20 04:52 Dose: 0 mls/hr Documented by: [id number] Admin: 12/20/20 03:27 Dose: 100 mls/hr Documented by: [id number] Discharge Plan Visit Data Chief Complaint: Illness Stated Complaint: FALL/ABDOMINAL PAIN ED Provider: Paurl Cristobal Discharge Problem: Acute alteration in mental status, Acute UTI, Hypokalemia Patient Disposition: Admitted As Inpatient Discharge Instructions Interventions: ED Discharge Assessment Last Done: 12/20/20 05:19
[2020-12-20 02:27] LABS: Basophils # (auto) 0.01 K/uL (0-0.2); Basophils % (auto) 0.2 %; Eosinophils # (auto) 0.01 K/uL (0-0.5); Eosinophils % (auto) 0.2 %; Hematocrit (blood only) 35.4 % (37-47); Hemoglobin 12.2 g/dL (12.0-16.0); Immature Granulocytes # (auto) 0.06 K/uL (0.00-0.02); Lymphocytes # (auto) 0.76 K/uL (1.2-3.4); Lymphocytes % (auto) 12.3 %; Mean Corpuscular Hgb Conc 34.5 g/dL (32-36); Mean Platelet Volume 8.8 fL (7.4-10.4); Monocytes # (auto) 0.17 K/uL (0.11-0.59); Monocytes % (auto) 2.8 %; Neutrophils # (auto) 5.16 K/uL (1.4-6.5); Neutrophils % (auto) 83.5 %; Platelet Count 214 K/uL (130-400); RDW Coefficient of Variation 13.5 % (11.5-14.5); RDW Standard Deviation 43.1 fL (36.4-46.3); Red Blood Count 4.07 M/uL (4.2-5.4); White Blood Count 6.17 K/uL (4.8-10.8)
[2020-12-20 02:31] LABS: Appearance Urine Clear (Clear); Bacteria Urine Automated 4+ (Negative); Bilirubin Urine Negative (Negative); Blood Urine 3+ (Negative); Color Urine Yellow; Glucose Urine UA Negative (Negative); Ketones Urine Negative (Negative); Leukocyte Esterase Urine Trace (Negative); Nitrite Urine Positive (Negative); Protein Urine 1+ (Negative); Specific Gravity Urine 1.016 (1.000-1.030); Urobilinogen Urine Negative (Negative); pH Urine 5.5 (4.5-7.5)
[2020-12-20 02:47] LABS: INR 3.8 (0.9-1.1); Partial Thromboplastin Ratio 1.9; Prothrombin Time 34.5 Seconds (9.0-12.0)
[2020-12-20 02:55] LABS: Partial Thromboplastin Time 48.9 Seconds (21.0-31.0)
[2020-12-20 02:56] LABS: Albumin Level 3.2 gm/dl (3.4-5.0); BUN Creatinine Ratio 12.9 (10-20); Calcium 8.1 mg/dl (8.5-10.1); Creatinine Clr Calc Pharmacy 58.5 ml/min; Est GFR (African American) 56.8; Magnesium 1.8 mg/dl (1.8-2.4); Potassium 3.1 mmol/L (3.5-5.1)
[2020-12-20 02:59] LABS: Albumin Globulin Ratio 0.8 (0.9-2); Bilirubin,Total 0.6 mg/dl (0.2-1); Globulin 4.2 gm/dl (2.5-4.0); Total Protein 7.4 gm/dl (6.4-8.2)
[2020-12-20] MEDS ORDERED: SODIUM CHLORIDE 0.9% 500 ML IV ONE (03:12)
[2020-12-20] MEDS ORDERED: levoFLOXacin/D5W 750 MG/150 ML BAG IV STA (03:12)
[2020-12-20 03:23] LABS: Influenza A virus by PCR Negative (Neg); Influenza B virus by PCR Negative (Neg); RSV by PCR Negative (Neg); SARS CoV2 RNA(COVID-19) InHosp NEGATIVE (Negative)
--- NOTE | 2020-12-20 04:09 | History & Physical Report ---
Date of Service December 20, 2020 Assessment & Plan (1) Sepsis due to urinary tract infection: Sepsis due to UTI/urinary incontinence/altered mental status/recent second COVID-19 vaccine- NPO NSS + KCl 20 mEq at 100 mils per hour Follow urine culture and sensitivity. Follow blood culture and sensitivity Empiric ceftriaxone 2 g IV daily Famotidine 20 mg IV every 12 hours Zofran 4 mg IV every 6 hours as needed Present on Admission?: Yes (2) Acute alteration in mental status: See above. 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 every morning. Place on half dose IV daily if not resuming oral in 3 days Present on Admission?: Yes History of Present Illness Chief Complaint: The patient is brought to the emergency department by EMS after receiving a call from her that the patient had altered mental status Primary Care Provider: Jerardo Grace MD The patient is a 70-year-old female with a past medical history including urinary incontinence, urinary tract infection, right hip replacement, status post transsphenoidal pituitary resection, vitamin D deficiency, vitamin B12 deficiency, impaired fasting glucose, idiopathic polyneuropathy, secondary adrenal insufficiency, hypopituitarism, growth hormone deficiency, fatigue, depression, anxiety, dyslipidemia, osteopenia and history of DVT. Her reports that she thought she was getting a urinary tract infection recently. She did have the second COVID-19 vaccine 2 days ago, and since that time has had decreased oral intake and generally been feeling fatigued. Allergies Allergy/AdvReac Type Severity Reaction Status Date / Time Penicillins Allergy Mild hives Verified 12/20/20 03:29 sertraline AdvReac Intermediate acting Verified 12/20/20 03:29 funny Home Medications Medication Instructions Recorded Confirmed Type acetaminophen [Tylenol Extra 1,000 - 1,500 mg PO Q6H PRN 04/10/20 12/20/20 History Strength] levothyroxine 137 mcg PO QAM 04/10/20 12/20/20 History Wheeled Walker #1 ea 04/17/20 08/27/20 Rx hydrocortisone 10 mg tablet 10 mg PO .COMPLEX 90 Days #90 tab 07/29/20 12/20/20 Rx warfarin 5 mg tablet 5 - 7.5 mg PO DAILY #100 tab 08/05/20 12/20/20 Rx oxybutynin chloride 5 mg 5 mg PO DAILY #30 tab 10/14/20 12/20/20 Rx tablet,extended release 24 hr Past Med/Surg History Medical History (Updated 12/20/20 @ 04:31 by Rodrigo Murphy MD) Bilateral lower extremity edema Due water retention- cannot take diuretics due to urinary frequency Chronic steroid use DVT (deep venous thrombosis) X 2-WAS PLACED ON WARFARIN "YRS AGO"-NO ISSUES SINCE PER PT Hyperlipidemia NO MEDS CURRENTLY Hypothyroidism Idiopathic polyneuropathy IFG (impaired fasting glucose) Obesity 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 Follows with neurosurgery PRN. Last seen by endo January 2020. Pt denies recent issues SOB (shortness of breath) on exertion 1 FLIGHT Urinary, incontinence, stress female Vitamin B12 deficiency Vitamin D deficiency Surgical History History of breast biopsy LEFT-BENIGN History of cataract surgery R/L History of colonoscopy (05/31/18) Dr. Gonzalez, sigmoid diverticulosis, 4 mm sigmoid tubular adenoma polyp removed, recheck 5 years History of right hip replacement (~04/2020) History of tubal ligation Status post transsphenoidal pituitary resection 1993 [facility] [place] Family History Father Deep vein thrombosis of lower extremity Peripheral artery disease Aunt Breast cancer Grandmother (Paternal) Coronary heart disease Grandfather (Paternal) Coronary heart disease Mother Schizophrenia Denies family history of Ovarian cancer Prostate cancer Myocardial infarction Colorectal cancer Social History Smoking Status: Never smoker Second Hand Exposure: No; Hx Alcohol Use: No Hx Substance Use: No Preferred Language: Malaysian Communication Ability: Effective Visual Impairment: No Limitations Hearing Ability: Normal Mechanical Assembly Required: No Beliefs That Will Affect Care: None marital status: Current Living Situation: Spouse current occupational status: retired Feels Safe at Home: Yes Dental Care, Regularly: No Physical Activity Frequency: Does not Exercise Seatbelt Use: sometimes Assistive Devices: Walker Review of Systems Review of Systems: Unobtainable due to reduced consciousness Physical Exam Physical Exam: The patient is nonresponsive, well developed and well nourished, normocephalic and atraumatic, lying in bed and in no acute distress. HEENT--PERRL, EOMI, mucous membranes and oropharynx dry. Neck--supple. No JVD. No bruits. Thyroid normal, trachea midline, no adenopathy. Heart--normal S1 and S2. No murmurs, rubs or gallops. Lungs--clear bilaterally, no respiratory distress, no accessory muscle use. Abdomen--normal bowel sounds and soft. Nontender. Nondistended. Morbidly obese Extremities--no cyanosis or clubbing. No edema. Dermatologic--normal skin turgor, normal color, no abnormal lymph nodes, no rash. Neurologic--cranial nerves II through XII grossly intact. Rheumatologic-limited exam Psychiatric--nonresponsive Results & Data Results & Data ([facility]) Vital Signs (Past 12 Hours) Vital Signs Temp Pulse Resp BP Pulse Ox 12/20/20 04:08 22 96 12/20/20 03:26 22 96 12/20/20 02:34 95 12/20/20 02:32 97 H 22 188/112 H 94 12/20/20 01:56 100.6 F H 97 H 24 187/116 H 97 Laboratory Results Laboratory Results WBC 6.17 K/uL (4.8-10.8) 12/20/20 02:10 RBC 4.07 M/uL (4.2-5.4) L 12/20/20 02:10 Hgb 12.2 g/dL (12.0-16.0) 12/20/20 02:10 Hct 35.4 % (37-47) L 12/20/20 02:10 MCV 87.0 fL (80-100) 12/20/20 02:10 MCH 30.0 pg (25-34) 12/20/20 02:10 MCHC 34.5 g/dL (32-36) 12/20/20 02:10 RDW Std Deviation 43.1 fL (36.4-46.3) 12/20/20 02:10 RDW Coeff of Mckayla 13.5 % (11.5-14.5) 12/20/20 02:10 Plt Count 214 K/uL (130-400) 12/20/20 02:10 MPV 8.8 fL (7.4-10.4) 12/20/20 02:10 Immature Gran % (Auto) 1.0 % 12/20/20 02:10 Neut % (Auto) 83.5 % 12/20/20 02:10 Lymph % (Auto) 12.3 % 12/20/20 02:10 Bath % (Auto) 2.8 % 12/20/20 02:10 Eos % (Auto) 0.2 % 12/20/20 02:10 Baso % (Auto) 0.2 % 12/20/20 02:10 Neut # (Auto) 5.16 K/uL (1.4-6.5) 12/20/20 02:10 Lymph # (Auto) 0.76 K/uL (1.2-3.4) L 12/20/20 02:10 Bath # (Auto) 0.17 K/uL (0.11-0.59) 12/20/20 02:10 Eos # (Auto) 0.01 K/uL (0-0.5) 12/20/20 02:10 Baso # (Auto) 0.01 K/uL (0-0.2) 12/20/20 02:10 Immature Gran # (Auto) 0.06 K/uL (0.00-0.02) H 12/20/20 02:10 PT 34.5 Seconds (9.0-12.0) H 12/20/20 02:10 INR 3.8 (0.9-1.1) H 12/20/20 02:10 APTT 48.9 Seconds (21.0-31.0) H* 12/20/20 02:10 PTT Ratio 1.9 12/20/20 02:10 Sodium 136 mmol/L (136-145) 12/20/20 02:10 Potassium 3.1 mmol/L (3.5-5.1) L 12/20/20 02:10 Chloride 103 mmol/L (98-107) 12/20/20 02:10 Carbon Dioxide 25 mmol/L (21-32) 12/20/20 02:10 Anion Gap 8.0 (3-11) 12/20/20 02:10 BUN 15 mg/dl (7-18) 12/20/20 02:10 Creatinine 1.14 mg/dl (0.6-1.2) 12/20/20 02:10 Est Cr Clr Drug Dosing 58.5 ml/min 12/20/20 02:10 Est GFR ( Amer) 56.8 12/20/20 02:10 Est GFR (Non-Af Amer) 49.0 12/20/20 02:10 BUN/Creatinine Ratio 12.9 (10-20) 12/20/20 02:10 Glucose 95 mg/dl (70-99) 12/20/20 02:10 Lactate 1.8 mmol/L (0.4-2.0) 12/20/20 02:10 Calcium 8.1 mg/dl (8.5-10.1) L 12/20/20 02:10 Magnesium 1.8 mg/dl (1.8-2.4) 12/20/20 02:10 Total Bilirubin 0.6 mg/dl (0.2-1) 12/20/20 02:10 AST 23 U/L (15-37) 12/20/20 02:10 ALT 18 U/L (12-78) 12/20/20 02:10 Alkaline Phosphatase 67 U/L (45-117) 12/20/20 02:10 Total Protein 7.4 gm/dl (6.4-8.2) 12/20/20 02:10 Albumin 3.2 gm/dl (3.4-5.0) L 12/20/20 02:10 Globulin 4.2 gm/dl (2.5-4.0) H 12/20/20 02:10 Albumin/Globulin Ratio 0.8 (0.9-2) L 12/20/20 02:10 Urine Color Yellow 12/20/20 02:19 Urine Appearance Clear (Clear) 12/20/20 02:19 Urine pH 5.5 (4.5-7.5) 12/20/20 02:19 Ur Specific [place] 1.016 (1.000-1.030) 12/20/20 02:19 Urine Protein 1+ (Negative) H 12/20/20 02:19 Urine Glucose (UA) Negative (Negative) 12/20/20 02:19 Urine Ketones Negative (Negative) 12/20/20 02:19 Urine Blood 3+ (Negative) H 12/20/20 02:19 Urine Nitrite Positive (Negative) A 12/20/20 02:19 Urine Bilirubin Negative (Negative) 12/20/20 02:19 Urine Urobilinogen Negative (Negative) 12/20/20 02:19 Ur Leukocyte Esterase Trace (Negative) H 12/20/20 02:19 Urine WBC (Auto) 5-10 /hpf (0-5) H 12/20/20 02:19 Urine RBC (Auto) 10-30 /hpf (0-4) H 12/20/20 02:19 U Hyaline Cast (Auto) 1-5 /lpf (0-5) 12/20/20 02:19 U Epithel Cells (Auto) 5-10 /lpf (0-5) H 12/20/20 02:19 Urine Bacteria (Auto) 4+ (Negative) H 12/20/20 02:19 COVID-19 Eval Order CovFluRsv at [facility] 12/20/20 02:32 SARS-CoV-2 (PCR) NEGATIVE (Negative) 12/20/20 02:32 Influenza Type A (PCR) Negative (Neg) 12/20/20 02:32 Influenza Type B (PCR) Negative (Neg) 12/20/20 02:32 RSV (RT-PCR) Negative (Neg) 12/20/20 02:32 Diagnostic Findings [facility] Patient: GISELA MANZANO (Female) : 52 Status: ER Date: 12/20/20 02:30 Room #: History: AMS, PT UNABLE TO ANSWER QUESTIONS Slices: 66 Priors: Tech: Kaila Oglesby @ [phone] Exams: CT HEAD Contrast: Accession Numbers: [id number] Preliminary Findings Only See Final Report For Complete Findings CT HEAD: Comparison: MRI brain 06/06/10. Intracranial atherosclerosis. Encephalomalacia in the bilateral anteromedial frontal lobes. Involutional and chronic small vessel ischemic changes. No ICH, mass-effect, or edema. No skull fracture. Sinuses and mastoid air cells are clear. Radiologist: Matthew Cox M.D. Study ready at 02:31 and initial results transmitted at 02:34 *This report constitutes a preliminary interpretation only. Non-acute findings felt to be unrelated to the clinical presentation may not be discussed in this report. The study will be interpreted and a final report will be generated by the local Radiologist the following shift. To reach the hospital radiology department call [phone]. If a discrepancy is found between the preliminary and final interpretations of this study, please notify us via our Client Portal at [email or web address] under QA Exams.You can also fax this report with a description of the discrepancy, or include the final report, to our daytime fax number [phone].If faxing, please indicate the severity of discrepancy using one of the following categories: [ ] 1 - Agree/Informational [ ] 2 - Unlikely to Affect Management [ ] 3 - Possible Eventual Change of Management [ ] 4 - Probable Immediate Change of Management For all other patient related information, please fax us at [phone]. [id number] Code Status & VTE Plan Code Status Full code VTE Prophylaxis Plan VTE Prophylaxis will be ordered: Yes PG Care Time/CCT Total # of Minutes Spent Total Time Spent with Patient: Total time spent is greater than 50% in coordination of care (as documented) at patient's floor/unit and/or counseling patient: Coding Level of Care Code 33065 Initial Inpt Care Lvl 3 Diagnoses Sepsis due to urinary tract infection A41.9; N39.0 Acute alteration in mental status R41.82 Urinary incontinence R32 Anticoagulated on Coumadin Z79.01 Hypopituitarism E23.0 Secondary adrenal insufficiency E27.49 Hypokalemia E87.6 Central hypothyroidism E03.8
[2020-12-20] MEDS ORDERED: METOPROLOL TARTRATE 1 MG/ML VIAL IV PRN (04:12)
[2020-12-20] MEDS ORDERED: FAMOTIDINE 20MG/5ML IV PUSH IV ONE (05:20)
[2020-12-20] MEDS ORDERED: ONDANSETRON INJ 2 MG/ML 2 ML VIAL IV PRN (05:45)
[2020-12-20] MEDS ORDERED: HYDROCORTISONE SOD SUCCINATE 100 MG/2 ML VIAL IV SCH (05:45)
[2020-12-20] MEDS: NSS + 20MEQ KCL 20 MEQ/1,000 ML BAG IV SCH ×2 (06:20→19:42)
[2020-12-20] MEDS: HYDROCORTISONE SOD 100 MG in SYRINGE 0 ML IV SCH ×3 (06:20→21:15)
--- NOTE | 2020-12-20 06:30 | CT Scan Report ---
CT head/brain wo con CLINICAL HISTORY: 70 years-old Female with altered ms. Acutely altered mental status TECHNIQUE: Multiple axial CT images of the head were obtained without contrast. A dose lowering tech nique was utilized adhering to the principles of ALARA. CT DOSE: 614.27 mGy.cm COMPARISON: Brain MRI 05/24/2012. FINDINGS: No acute intracranial hemorrhage, midline shift, intracranial mass, hydrocephalus, territorial ischem ia or abnormal extra-axial collection. Age-related involutional changes. Encephalomalacia of the bila teral medial aspects of the frontal lobes which is unchanged suggestive of chronic infarct. Patchy wh ite matter hypodensities suggest chronic microvascular ischemic disease. The calvarium is intact. Prior bilateral lens repair. The paranasal sinuses, mastoid air cells, and m iddle ear cavities are clear. IMPRESSION: No acute intracranial abnormality. ACT 112: Negative or not required by law. The above report was generated using voice recognition software. It may contain grammatical, syntax o r spelling errors. Electronically signed by: Jesus Monte M.D. 12/20/2020 6:28 AM
--- NOTE | 2020-12-20 06:51 | XRay Report ---
XR chest 1V portable CLINICAL HISTORY: SEPSIS COMPARISON STUDY: 04/17/2020 FINDINGS: The heart is enlarged. There is minor basilar social thickening. There is no lobar consolid ation. There is no overt failure. There are no significant pleural effusions.[ IMPRESSION: Cardiomegaly. No evidence of focal pulmonary consolidation ACT 112: Negative or not required by law. Electronically signed by: Desmond Zamora M.D. 12/20/2020 6:50 AM
[2020-12-20 07:10] LABS: iSTAT Creatinine 1.1 mg/dl (0.6-1.3); iSTAT Hemoglobin 11.9 g/dl (12.0-16.0); iSTAT Ionized Calcium 1.06 mmol/l (1.12-1.32); iSTAT Potassium 3.2 mmol/L (3.3-5.0)
--- NOTE | 2020-12-20 07:25 | Ultrasound Report ---
US pelvic complete HISTORY: 70 years-old Female heavy vaginal bleeding acute vaginal bleeding COMPARISON: CT abdomen 01/04/2008 TECHNIQUE: Multiple real-time sonographic images of the deep pelvic structures were obtained transabd ominally and transvaginally assessing grayscale appearance, color and spectral flow FINDINGS: Limited exam secondary to patient positioning] habitus. The patient was reportedly uncomfortable duri ng the exam. TRANSABDOMINAL: Pelvic structures are not well seen. TRANSVAGINAL: Diminutive uterus measures 3.9 x 1.9 x 2.5 cm. Endometrium measures 2 mm in thickness. No myometrial mass lesion identified. Ovaries are not diagnostically visualized secondary to obscuring bowel gas. N o adnexal mass lesion or significant free pelvic fluid. IMPRESSION: 1. Limited exam as above. 2. Unremarkable sonographic appearance of the uterus and endometrium. 3. Nonvisualization of the ovaries. ACT 112: Negative or not required by law. The above report was generated using voice recognition software. It may contain grammatical, syntax o r spelling errors. Electronically signed by: Jesus Monte M.D. 12/20/2020 7:24 AM
[2020-12-20] MEDS: ACETAMINOPHEN 1000 MG/100 ML IV IV PRN (08:06)
[2020-12-20] MEDS: cefTRIAXone SODIUM 2,000 MG in DEXTROSE 5% 50 ML IV SCH (08:27)
[2020-12-20] MEDS ORDERED: PHENAZOPYRIDINE HCL 200 MG TAB PO PRN (13:03)
--- NOTE | 2020-12-20 14:08 | Electrocardiogram Report ---
Test Reason : Blood Pressure : / mmHG Vent. Rate : 101 BPM Atrial Rate : 101 BPM P-R Int : 194 ms QRS Dur : 080 ms QT Int : 346 ms P-R-T Axes : 057 -29 005 degrees QTc Int : 448 ms Poor data quality, interpretation may be adversely affected Sinus tachycardia Poor R wave progression, consider anterior AK vs. lead placement vs. LVH Abnormal ECG When compared with ECG of 17-APR-2020 12:02, Vent. rate has increased BY 33 BPM Nonspecific T wave abnormality no longer evident in Lateral leads Confirmed by Dale Quinones ([id number]) on 12/20/2020 2:07:58 PM Referred By: REFERRED SELF Confirmed By:Juan Quinones
[2020-12-20] MEDS: LIDOCAINE 5% 1 PATCH TD SCH (14:21)
--- NOTE | 2020-12-20 16:15 | History & Physical Bridge Note ---
Date of Service December 20, 2020 History & Physical Bridge Note I have examined the patient, reviewed the History & Physical and in the interval since the performance of the History & Physical I have noted the following changes of clinical significance: no changes noted Patient seen this morning. Mentation improved and answering questions appropriately. To get Pyridium x1 for bladder spasm/pain however not on this outpatient per our records. Will add her daily oxybutynin for incontinence issues. Continue ceftriaxone until cx resulted Patient reported chronic back pain, not worse than her usual level. No need for any PO medications at this time other than tylenol. Will order lidocaine patch for comfort. Holding warfarin for INR 3.8 -- no s/sx bleeding at this time. Will need repeat INR in AM and follow up with PCP vs coag clinic given elevation. She takes 7.5mg MWF, 5mg all other days. Hx chronic DVT without known cause. Will resume levothyroxine for AM, 137mcg daily Continue on stress dose steroids for today but suspect can be back on her home regimen tomorrow.
[2020-12-20] MEDS ORDERED: hydrALAZINE HCL 20 MG/ML VIAL IV PRN (16:42)
[2020-12-20] MEDS: OXYBUTYNIN CHLORIDE XL 5 MG TABCR PO SCH (16:56)
[2020-12-20] MEDS: FAMOTIDINE 20 MG in SYRINGE 3 ML IV SCH (17:29)
[2020-12-20] MEDS ORDERED: POLYETHYLENE (MIRALAX) 17 GM PACK PO PRN (17:59)
[2020-12-20] MEDS ORDERED: POTASSIUM CHLORIDE CRTAB 20 MEQ TABCR PO STA (18:23)
--- NOTE | 2020-12-20 19:31 | XRay Report ---
LUMBAR SPINE 3 VIEWS HISTORY: low back pain, s/p fall COMPARISON: None. FINDINGS: There is no fracture. Moderate facet degenerative changes within the lower lumbar spine. M ild disc space narrowing at L5-S1. Mild superior endplate compression deformities at L2 and L4. These are technically age indeterminate but likely chronic. No associated retropulsion. This demonstrates less than 10% loss of height. There is a right hip arthroplasty. The sacrum appears intact. Moderate degenerative changes within the bilateral sacroiliac joints. 3 mm of anterolisthesis of L5 on S1. Thi s is likely due to long-standing degenerative change. IMPRESSION: 1. Mild superior endplate compression deformities at L2 and L4. These are technically age indetermina te but likely chronic. 2. Degenerative changes as described above. ACT 112: Negative or not required by law. Electronically signed by: Rajinder Garay M.D. 12/20/2020 7:30 PM
--- NOTE | 2020-12-20 19:33 | XRay Report ---
XR hip PAULETTE 2v w pelvis CLINICAL HISTORY: s/p fall, back pain, bleeding COMPARISON STUDY: Pelvis 06/25/2020. FINDINGS: There is a right total arthroplasty. The hardware appears intact. No fracture or dislocatio n within the pelvis or hips. Mild to moderate cartilage space narrowing and marginal osteophytes with in the left hip consistent with degenerative change. The bones are osteopenic. 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 Soft tissues are unremarkable. IMPRESSION: Postoperative and degenerative changes as described above. No fractures within the pelvi s or hips. ACT 112: Negative or not required by law. Electronically signed by: Rajinder Garay M.D. 12/20/2020 7:32 PM
[2020-12-20] MEDS: CALCITRIOL 0.25 MCG CAPSULE PO SCH (19:57)
[2020-12-21] MEDS: ACETAMINOPHEN 1000 MG/100 ML IV IV PRN ×2 (01:14→11:08)
[2020-12-21 05:52] LABS: Hemoglobin 10.7 g/dL (12.0-16.0); Immature Granulocytes # (auto) 0.02 K/uL (0.00-0.02); Immature Granulocytes % (auto) 0.3 %; Lymphocytes # (auto) 0.49 K/uL (1.2-3.4); Lymphocytes % (auto) 7.3 %; Mean Corpuscular Hemoglobin 29.3 pg (25-34); Mean Corpuscular Hgb Conc 34.5 g/dL (32-36); Mean Corpuscular Volume 84.9 fL (80-100); Mean Platelet Volume 9.2 fL (7.4-10.4); Monocytes # (auto) 0.34 K/uL (0.11-0.59); Monocytes % (auto) 5.1 %; Neutrophils # (auto) 5.83 K/uL (1.4-6.5); Neutrophils % (auto) 87.3 %; Platelet Count 191 K/uL (130-400); RDW Coefficient of Variation 13.5 % (11.5-14.5); RDW Standard Deviation 42.1 fL (36.4-46.3); Red Blood Count 3.65 M/uL (4.2-5.4); White Blood Count 6.68 K/uL (4.8-10.8)
[2020-12-21] MEDS: NSS + 20MEQ KCL 20 MEQ/1,000 ML BAG IV SCH ×2 (06:00→15:29)
[2020-12-21] MEDS ORDERED: Nursing to Pharmacy Communication SCH (06:00)
[2020-12-21] MEDS: LEVOTHYROXINE SODIUM 137 MCG TABLET PO SCH (06:01)
[2020-12-21] MEDS: FAMOTIDINE 20 MG in SYRINGE 3 ML IV SCH (06:02)
[2020-12-21] MEDS: HYDROCORTISONE SOD 100 MG in SYRINGE 0 ML IV SCH ×2 (06:02→14:35)
[2020-12-21 06:17] LABS: INR 3.9 (0.9-1.1); Prothrombin Time 35.4 Seconds (9.0-12.0)
[2020-12-21 06:25] LABS: Alanine Aminotransferase 17 U/L (12-78); Albumin Level 2.9 gm/dl (3.4-5.0); Aspartate Aminotransferase 19 U/L (15-37); BUN Creatinine Ratio 14.6 (10-20); Blood Urea Nitrogen 14 mg/dl (7-18); Calcium 8.2 mg/dl (8.5-10.1); Carbon Dioxide 19 mmol/L (21-32); Chloride 111 mmol/L (98-107); Creatinine Clr Calc Pharmacy 63.8 ml/min; Est GFR (African American) 70.8; Est GFR (Non-African American) 61.1; Glucose 112 mg/dl (70-99); Potassium 3.5 mmol/L (3.5-5.1); Sodium 141 mmol/L (136-145)
[2020-12-21] MEDS ORDERED: DICLOFENAC SOD 1% GEL 100 GM TUBE EXT SCH (06:30)
[2020-12-21 06:35] LABS: Albumin Globulin Ratio 0.7 (0.9-2); Alkaline Phosphatase 58 U/L (45-117); Bilirubin,Total 0.4 mg/dl (0.2-1); Globulin 3.9 gm/dl (2.5-4.0); Thyroid Stimulating Hormone < 0.005 uIu/ml (0.300-4.500); Total Protein 6.8 gm/dl (6.4-8.2)
[2020-12-21 06:48] LABS: T4 Free Thyroxine 1.76 ng/dl (0.8-1.6)
[2020-12-21] MEDS ORDERED: CYANOCOBALAMIN 30 MCG in SYRINGE 0.97 ML IM SCH (08:15)
[2020-12-21 08:35] LABS: Base Excess VBG -1.8 mEq/L; pH VBG 7.44 (7.36-7.41)
[2020-12-21] MEDS: CALCITRIOL 0.25 MCG CAPSULE PO SCH ×2 (08:38→19:57)
[2020-12-21] MEDS: THIAMINE HCL 100 MG TAB PO SCH (08:39)
[2020-12-21] MEDS: CYANOCOBALAMIN 500 MCG TABLET (VITAMIN B-12) PO SCH (08:39)
--- NOTE | 2020-12-21 08:39 | Hospitalist Progress Note ---
Date of Service December 21, 2020 Assessment & Plan (1) Sepsis due to urinary tract infection: Sepsis due to UTI/urinary incontinence/altered mental status/recent second COVID-19 vaccine Resolving with tx of UTI Tolerating regular diet Will d/c IVF as keeping up with oral intake and BP elevated Continue stress dose steroids for now given hx pituitary resection Urine culture with gram negative bacilli -- follow c/s Continue ceftriaxone for now Will continue to hold coumadin for elevated INR 3.9 but no further reported bleeding Blood culture NGTD 24 hours- follow Antiemetics prn, Famotidine 20mg IV BID Tylenol prn pain, lidocaine, voltaren gel to back Oxybutynin for incontinence PT/OT consults ordered B12 checked given weakness/fall and hx of deficiency but not on supplementation --> LOW --> Will replace with IM for today and continue with 2000IU PO daily and reduce to 1000mg after 2 weeks. Follow up with PCP Given MCV wnl, will also add folate and iron studies to AM labs TSH undetectable in patient with hx resection, FT4 elevated slightly. Discussed with Dr. headley and continue current dose of levothyroxine recommended Imaging of back without acute fractures, likely chronic endplate compression deformities --pain currently reported as controlled ECHO without wma, EF 55-60%, LV systolic function normal. Mild LVH, Grade I diastolic dysfunction, RV mildly dilated. Mild-moderate tricuspid regurgitation. RVSP elevated 30-40mmHG. Will order overnight pulse ox study. Will also add B1 level given confusion and recent outpatient MMSE and start on replacement as well Continue inpatient and repeat labs in AM (2) Acute alteration in mental status: See above. CT Head without acute abn CXR without consolidation Likely metabolic encephalopathy secondary to UTI and sepsis Improving with treatment of UTI (3) Urinary incontinence: Predisposing to UTI Oxybutynin (4) Anticoagulated on Coumadin: Due to previous DVT INR supratherapeutic at 3.9 as above (also now on abx, but will be second day without her home coumadin) She takes 7.5mg MWF, 5mg all other days. Hx chronic DVT without known cause Vaginal US without issues given bleeding reported in ER on admission H/h dropped but on fluids. 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 every morning continued To follow up with Endocrinology at discharge (9) Vitamin B12 deficiency: Hx of Wasn't taking replacement at this time Given IM for today and start daily dosing Follow up with PCP PT/OT consults pending (10) Osteopenia: Resumed calcitriol .5mcg BID Admission and Anticipated Discharge Date Admission Date: December 20, 2020 Subjective Patient evaluated this morning. Doing well. Eating/drinking without difficulty. Moved her bowels recently. No further bleeding reported. Discussed coumadin and INR and will continue to hold but hold off on VIt K for now unless bleeding recurs. PT/OT to work with patient. Discussed low B12 levels. Patient with neuropathy at baseline but denied recent numbness/tingling to her lower extremities. She only remembers walking and then ending up in the hospital. No recollection of how fall occurred. Denied dizziness or lightheadedness. Pain controlled to back. Reviewed xrays without acute fracture. Lidocaine patch to back helpful for pain control. Will get tylenol prior to working with therapy. Was to take calcitriol from Dr. Headley but sometimes not faithful as this tends to "back her up". Incontinence at baseline and wearing a brief. No fever, chills, chest pain, shortness of breath, abdominal pain, nausea, vomiting. Discussed waiting for urine culture and staying overnight tonight with plans for d/c tomorrow if stable. Review of Systems Review of Systems: All systems reviewed & are unremarkable except as noted in HPI & below Physical Exam Physical Exam: The patient is nonresponsive, well developed and well nourished, normocephalic and atraumatic, lying in bed and in no acute distress. Able to correctly give year 2020, month November, and president Thalia. Sometimes prolonged time to answer when determining correct answer. HEENT--PERRL, EOMI, mucous membranes moist Neck--supple. No JVD. No bruits. Thyroid normal, trachea midline, no adenopathy. Heart--normal S1 and S2. No murmurs, rubs or gallops. Lungs--clear bilaterally, no respiratory distress, no accessory muscle use. Abdomen--normal bowel sounds and soft. Nontender. Nondistended. Morbidly obese Extremities--no cyanosis or clubbing. No edema. Peripheral neuropathy b/l LE Dermatologic--normal skin turgor, normal color, no abnormal lymph nodes, no rash. Neurologic--cranial nerves II through XII grossly intact. Psychiatric--AOx3, slow to answer at times Results & Data Results & Data ([facility]) Vital Signs (Past 12 Hours) Vital Signs Temp Pulse Pulse Resp BP BP Pulse Ox 12/21/20 07:49 36.5 C 70 20 179/82 H 95 12/21/20 01:53 75 12/20/20 23:00 36.4 C L 77 20 188/84 H 97 Laboratory Results 12/21/20 12/21/20 12/21/20 Range/Units 08:27 05:19 05:19 WBC (4.8-10.8) K/uL RBC (4.2-5.4) M/uL Hgb (12.0-16.0) g/dL Hct (37-47) % MCV (80-100) fL MCH (25-34) pg MCHC (32-36) g/dL RDW Std Deviation (36.4-46.3) fL RDW Coeff of Mckayla (11.5-14.5) % Plt Count (130-400) K/uL MPV (7.4-10.4) fL Immature Gran % (Auto) % Neut % (Auto) % Lymph % (Auto) % [place] % (Auto) % Eos % (Auto) % Baso % (Auto) % Neut # (Auto) (1.4-6.5) K/uL Lymph # (Auto) (1.2-3.4) K/uL [place] # (Auto) (0.11-0.59) K/uL Eos # (Auto) (0-0.5) K/uL Baso # (Auto) (0-0.2) K/uL Immature Gran # (Auto) (0.00-0.02) K/uL PT 35.4 H (9.0-12.0) Seconds INR 3.9 H (0.9-1.1) VBG pH 7.44 H (7.36-7.41) VBG pCO2 33 L (38-50) mmHg VBG pO2 31 mmHg VBG HCO3 22 mmol/L VBG O2 Saturation 60.0 % VBG Base Excess -1.8 mEq/L Barometric Pressure 733.3 mm/Hg Sodium (136-145) mmol/L Potassium (3.5-5.1) mmol/L Chloride (98-107) mmol/L Carbon Dioxide (21-32) mmol/L Anion Gap (3-11) BUN (7-18) mg/dl Creatinine (0.6-1.2) mg/dl Est Cr Clr Drug Dosing ml/min Est GFR ( Amer) Est GFR (Non-Af Amer) BUN/Creatinine Ratio (10-20) Glucose (70-99) mg/dl Calcium (8.5-10.1) mg/dl Total Bilirubin (0.2-1) mg/dl AST (15-37) U/L ALT (12-78) U/L Alkaline Phosphatase (45-117) U/L Troponin I (0-0.045) ng/ml Total Protein (6.4-8.2) gm/dl Albumin (3.4-5.0) gm/dl Globulin (2.5-4.0) gm/dl Albumin/Globulin Ratio (0.9-2) Vitamin B12 173 L (193-986) pg/ml TSH (0.300-4.500) uIu/ml Free T4 (0.8-1.6) ng/dl Hepatitis C Ab Screen (Neg) 12/21/20 12/21/20 12/20/20 Range/Units 05:19 05:19 18:30 WBC 6.68 (4.8-10.8) K/uL RBC 3.65 L (4.2-5.4) M/uL Hgb 10.7 L (12.0-16.0) g/dL Hct 31.0 L (37-47) % MCV 84.9 (80-100) fL MCH 29.3 (25-34) pg MCHC 34.5 (32-36) g/dL RDW Std Deviation 42.1 (36.4-46.3) fL RDW Coeff of Mckayla 13.5 (11.5-14.5) % Plt Count 191 (130-400) K/uL MPV 9.2 (7.4-10.4) fL Immature Gran % (Auto) 0.3 % Neut % (Auto) 87.3 % Lymph % (Auto) 7.3 % [place] % (Auto) 5.1 % Eos % (Auto) 0.0 % Baso % (Auto) 0.0 % Neut # (Auto) 5.83 (1.4-6.5) K/uL Lymph # (Auto) 0.49 L (1.2-3.4) K/uL [place] # (Auto) 0.34 (0.11-0.59) K/uL Eos # (Auto) 0.00 (0-0.5) K/uL Baso # (Auto) 0.00 (0-0.2) K/uL Immature Gran # (Auto) 0.02 (0.00-0.02) K/uL PT (9.0-12.0) Seconds INR (0.9-1.1) VBG pH (7.36-7.41) VBG pCO2 (38-50) mmHg VBG pO2 mmHg VBG HCO3 mmol/L VBG O2 Saturation % VBG Base Excess mEq/L Barometric Pressure mm/Hg Sodium 141 (136-145) mmol/L Potassium 3.5 (3.5-5.1) mmol/L Chloride 111 H (98-107) mmol/L Carbon Dioxide 19 L (21-32) mmol/L Anion Gap 11.0 (3-11) BUN 14 (7-18) mg/dl Creatinine 0.95 (0.6-1.2) mg/dl Est Cr Clr Drug Dosing 63.8 ml/min Est GFR ( Amer) 70.8 Est GFR (Non-Af Amer) 61.1 BUN/Creatinine Ratio 14.6 (10-20) Glucose 112 H (70-99) mg/dl Calcium 8.2 L (8.5-10.1) mg/dl Total Bilirubin 0.4 (0.2-1) mg/dl AST 19 (15-37) U/L ALT 17 (12-78) U/L Alkaline Phosphatase 58 (45-117) U/L Troponin I < 0.015 (0-0.045) ng/ml Total Protein 6.8 (6.4-8.2) gm/dl Albumin 2.9 L (3.4-5.0) gm/dl Globulin 3.9 (2.5-4.0) gm/dl Albumin/Globulin Ratio 0.7 L (0.9-2) Vitamin B12 (193-986) pg/ml TSH < 0.005 L (0.300-4.500) uIu/ml Free T4 1.76 H (0.8-1.6) ng/dl Hepatitis C Ab Screen (Neg) 12/20/20 Range/Units 02:10 WBC (4.8-10.8) K/uL RBC (4.2-5.4) M/uL Hgb (12.0-16.0) g/dL Hct (37-47) % MCV (80-100) fL MCH (25-34) pg MCHC (32-36) g/dL RDW Std Deviation (36.4-46.3) fL RDW Coeff of Mckayla (11.5-14.5) % Plt Count (130-400) K/uL MPV (7.4-10.4) fL Immature Gran % (Auto) % Neut % (Auto) % Lymph % (Auto) % [place] % (Auto) % Eos % (Auto) % Baso % (Auto) % Neut # (Auto) (1.4-6.5) K/uL Lymph # (Auto) (1.2-3.4) K/uL [place] # (Auto) (0.11-0.59) K/uL Eos # (Auto) (0-0.5) K/uL Baso # (Auto) (0-0.2) K/uL Immature Gran # (Auto) (0.00-0.02) K/uL PT (9.0-12.0) Seconds INR (0.9-1.1) VBG pH (7.36-7.41) VBG pCO2 (38-50) mmHg VBG pO2 mmHg VBG HCO3 mmol/L VBG O2 Saturation % VBG Base Excess mEq/L Barometric Pressure mm/Hg Sodium (136-145) mmol/L Potassium (3.5-5.1) mmol/L Chloride (98-107) mmol/L Carbon Dioxide (21-32) mmol/L Anion Gap (3-11) BUN (7-18) mg/dl Creatinine (0.6-1.2) mg/dl Est Cr Clr Drug Dosing ml/min Est GFR ( Amer) Est GFR (Non-Af Amer) BUN/Creatinine Ratio (10-20) Glucose (70-99) mg/dl Calcium (8.5-10.1) mg/dl Total Bilirubin (0.2-1) mg/dl AST (15-37) U/L ALT (12-78) U/L Alkaline Phosphatase (45-117) U/L Troponin I (0-0.045) ng/ml Total Protein (6.4-8.2) gm/dl Albumin (3.4-5.0) gm/dl Globulin (2.5-4.0) gm/dl Albumin/Globulin Ratio (0.9-2) Vitamin B12 (193-986) pg/ml TSH (0.300-4.500) uIu/ml Free T4 (0.8-1.6) ng/dl Hepatitis C Ab Screen Neg (Neg) Diagnostic Findings Lumbar Spine 3 View IMPRESSION: 1. Mild superior endplate compression deformities at L2 and L4. These are technically age indeterminate but likely chronic. 2. Degenerative changes as described above. XR PAULETTE 2 v Pelvis IMPRESSION: Postoperative and degenerative changes as described above. No fract ures within the pelvis or hips. ECHO PG Care Time/CCT Total # of Minutes Spent Total Time Spent with Patient: Total time spent is greater than 50% in coordination of care (as documented) at patient's floor/unit and/or counseling patient: Coding Level of Care Code 01000 Subseq Hosp Care Lvl 3 Diagnoses Sepsis due to urinary tract infection A41.9; N39.0 Acute alteration in mental status R41.82 Urinary incontinence R32 Anticoagulated on Coumadin Z79.01 Hypopituitarism E23.0 Secondary adrenal insufficiency E27.49 Hypokalemia E87.6 Central hypothyroidism E03.8 Vitamin B12 deficiency E53.8 Osteopenia M85.80
[2020-12-21] MEDS: LIDOCAINE 5% 1 PATCH TD SCH (08:43)
[2020-12-21] MEDS: DICLOFENAC SOD 1% GEL 100 GM TUBE EXT SCH ×5 (08:44→23:31)
[2020-12-21] MEDS: cefTRIAXone SODIUM 2,000 MG in DEXTROSE 5% 50 ML IV SCH (08:45)
[2020-12-21] MEDS ORDERED: CYANOCOBALAMIN 1000 MCG/ML VIAL IM ONE (08:45)
--- NOTE | 2020-12-21 09:25 | Electrocardiogram Report ---
Test Reason : Blood Pressure : / mmHG Vent. Rate : 071 BPM Atrial Rate : 071 BPM P-R Int : 168 ms QRS Dur : 082 ms QT Int : 436 ms P-R-T Axes : 035 -01 -32 degrees QTc Int : 473 ms Normal sinus rhythm Poor R wave progression, consider anterior [place] vs. lead placement vs. LVH Low voltage QRS Diffuse Minor Nonspecific T wave abnormality Prolonged QT Abnormal ECG When compared with ECG of 20-DEC-2020 02:01, Nonspecific T wave abnormality now evident in Anterolateral leads Confirmed by Jerardo Padilla ([id number]) on 12/21/2020 9:25:37 AM Referred By: REFERRED SELF Confirmed By:Jerardo Padilla
[2020-12-21] MEDS ORDERED: hydrALAZINE HCL 20 MG/ML VIAL IV ONE (09:45)
--- NOTE | 2020-12-21 09:56 | XCELERA ---
[id number]
[2020-12-21] MEDS: OXYBUTYNIN CHLORIDE XL 5 MG TABCR PO SCH (10:48)
[2020-12-21] MEDS ORDERED: amLODIPine BESYLATE 5 MG TAB PO ONE (16:43)
[2020-12-21] MEDS: HYDROCORTISONE 10 MG TAB PO SCH (19:57)
[2020-12-22] MEDS: DICLOFENAC SOD 1% GEL 100 GM TUBE EXT SCH ×5 (03:16→20:32)
[2020-12-22] MEDS: LEVOTHYROXINE SODIUM 137 MCG TABLET PO SCH (06:26)
[2020-12-22 06:34] LABS: Eosinophils # (auto) 0.01 K/uL (0-0.5); Eosinophils % (auto) 0.1 %; Hematocrit (blood only) 29.1 % (37-47); Hemoglobin 9.8 g/dL (12.0-16.0); Immature Granulocytes # (auto) 0.02 K/uL (0.00-0.02); Immature Granulocytes % (auto) 0.2 %; Lymphocytes # (auto) 1.35 K/uL (1.2-3.4); Lymphocytes % (auto) 15.9 %; Mean Corpuscular Hgb Conc 33.7 g/dL (32-36); Mean Corpuscular Volume 86.1 fL (80-100); Mean Platelet Volume 9.3 fL (7.4-10.4); Monocytes % (auto) 7.1 %; Neutrophils # (auto) 6.49 K/uL (1.4-6.5); Neutrophils % (auto) 76.7 %; Platelet Count 203 K/uL (130-400); RDW Coefficient of Variation 14.2 % (11.5-14.5); RDW Standard Deviation 45.2 fL (36.4-46.3); Red Blood Count 3.38 M/uL (4.2-5.4); White Blood Count 8.47 K/uL (4.8-10.8)
[2020-12-22 06:50] LABS: INR 4.6 (0.9-1.1); Prothrombin Time 41.1 Seconds (9.0-12.0)
[2020-12-22 07:11] LABS: Albumin Level 2.8 gm/dl (3.4-5.0); BUN Creatinine Ratio 24.4 (10-20); Calcium 8.3 mg/dl (8.5-10.1); Creatinine Clr Calc Pharmacy 64.5 ml/min; Est GFR (African American) 70.8; Est GFR (Non-African American) 61.1; Potassium 3.7 mmol/L (3.5-5.1)
[2020-12-22 07:17] LABS: Albumin Globulin Ratio 0.7 (0.9-2); Bilirubin,Total 0.3 mg/dl (0.2-1); Ferritin 327.4 ng/ml (8-388); Globulin 3.8 gm/dl (2.5-4.0); Total Protein 6.6 gm/dl (6.4-8.2)
[2020-12-22] MEDS: CALCITRIOL 0.25 MCG CAPSULE PO SCH ×2 (07:48→20:31)
[2020-12-22] MEDS: HYDROCORTISONE 10 MG TAB PO SCH ×3 (07:48→20:31)
[2020-12-22] MEDS: CYANOCOBALAMIN 500 MCG TABLET (VITAMIN B-12) PO SCH (07:49)
[2020-12-22] MEDS: OXYBUTYNIN CHLORIDE XL 5 MG TABCR PO SCH (07:49)
[2020-12-22] MEDS: THIAMINE HCL 100 MG TAB PO SCH (07:50)
[2020-12-22] MEDS: cefTRIAXone SODIUM 2,000 MG in DEXTROSE 5% 50 ML IV SCH (07:55)
[2020-12-22] MEDS ORDERED: PHYTONADIONE 5 MG TAB PO STA (08:30)
[2020-12-22] MEDS: PANTOprazole 40 MG TAB PO SCH (08:52)
[2020-12-22] MEDS: FOLIC ACID 400 MCG TAB PO SCH (08:54)
[2020-12-22] MEDS: LIDOCAINE 5% 1 PATCH TD SCH (08:59)
--- NOTE | 2020-12-22 08:59 | Hospitalist Progress Note ---
Date of Service December 22, 2020 Assessment & Plan (1) Sepsis due to urinary tract infection: * Sepsis due to UTI/urinary incontinence/altered mental status/recent second COVID-19 vaccine * Resolving with tx of UTI (and also B12/folate) * Tolerating regular diet * Continue stress dose steroids for now given hx pituitary resection --> changed back to her usual 15mg QAM hydrocortisone and 5mg in evening * Urine culture with gram negative bacilli -- follow c/s * Continue ceftriaxone for now --> transition to Keflex tomorrow for anticipation discharge * Blood culture NGTD - follow * Antiemetics prn, * Famotidine 20mg IV BID -- patient did not want any further pepcid and will utilize protonix 40mg daily * Oxybutynin for incontinence * TSH undetectable in patient with hx resection, FT4 elevated slightly. Discussed with Dr. Headley and continue current dose of levothyroxine recommended * PT/OT consults ordered - recs for SNF Cognitive decline/gait instability/Falls/back pain * ECHO without wma, EF 55-60%, LV systolic function normal. Mild LVH, Grade I diastolic dysfunction, RV mildly dilated. Mild-moderate tricuspid regurgitation. RVSP elevated 30-40mmHG * Tylenol prn pain, lidocaine, voltaren gel to back * B12 checked given weakness/fall and hx of deficiency but not on supplementation --> LOW * --> Replaced with IM x1 and continue with 2000IU PO daily and reduce to 1000mg after 2 weeks. Follow up with PCP * Given MCV wnl, added folate/iron studies * --> Folate also low and started on replacement * --> Iron studies c/w chronic disease * --> B1 pending but started on daily replacement * Will continue to hold coumadin for elevated INR 4.6 and given 2.5mg Vit K give n hematoma * CTAP obtained to look for retroperitoneal bleeding given continued drop in hemoglobin. * --> no traumatic injury to solid organs. * --> Mild compression fractures of the superior endplates of L2 and L4. These are age indeterminate however the CT appearance favors acute to subacute fractures. Will have orthotics fit for brace * Slight stranding anterior to the left iliacus muscle with slight asymmetric increased size of the left iliacus muscle. This may reflect a small intramuscular hematoma. No large hematoma Labs in AM, possible d/c (2) Acute alteration in mental status: * See above. * CT Head without acute abn * CXR without consolidation * Likely metabolic encephalopathy secondary to UTI and sepsis * Improving with treatment of above (3) Urinary incontinence: * Predisposing to UTI * Oxybutynin (4) Anticoagulated on Coumadin: * Due to previous DVT * INR supratherapeutic at 4.6 as above (also now on abx, but will be second day without her home coumadin) * She takes 7.5mg MWF, 5mg all other days. Hx chronic DVT without known cause * Vaginal US without issues given bleeding reported in ER on admission * H/h dropped but on fluids. No further bleeding reported * CTAP negative for retroperitoneal bleed but does show small intramuscular hematom withing left iliacus muscle * Vitamin K 2.5mg x1 now * Repeat INR in AM * --> Should discuss more frequent INR checks outpatient as she typically just follow with Dr. Grace (PCP) * CBC in AM (5) Hypopituitarism: * Status post transsphenoidal resection/central hypopituitarism/secondary adrenal insufficiency- * Place on stress dose hydrocortisone 100 mg IV every 8 hours --> transitioned back to home doses (6) Secondary adrenal insufficiency: * See above (7) Hypokalemia: * Low, replaced * RESOLVED on repeat labs (8) Central hypothyroidism: * levothyroxine 137 mcg p.o. every morning continued * To follow up with Endocrinology at discharge (9) Vitamin B12 deficiency: * Hx of * Wasn't taking replacement at this time * Given IM for and started daily dosing * Follow up with PCP * PT/OT consults as above (10) Osteopenia: * Resumed calcitriol .5mcg BID * Vit D level added given fractures Dispo: continued inpatient stay Patient would like to return home at discharge but may require short inpatient stay Admission and Anticipated Discharge Date Admission Date: December 20, 2020 Subjective Patient seen this morning. Doing much better but increased pain following CT. Pain controlled with ordered medications but does increase with movements to her lower back. Reviewed compression fractures and will have Juan Carlos Barrientos bring in brace to fit for comfort. Neuropathy at baseline however discussed low B12/folate levels and need for supplementation. PT/OT with recommendations for rehab if [facility], however patient wishes are to return home at discharge. Will see how she makes out in next day with therapy and treatment of issues to see if she would be safe for return home. Only complain at present time is back back but not requesting any additional medication. She will alert staff if she feels like she needs anything further. No fever, chills, chest pain, shortness of breath, abdominal pain, nausea or vomiting. Questions/concerns addressed at this time. Review of Systems Review of Systems: All systems reviewed & are unremarkable except as noted in HPI & below Physical Exam Physical Exam: The patient is nonresponsive, well developed and well nourished, normocephalic and atraumatic, sitting up in chair and in no acute distress. Able to correctly give year 2020, month November, and president Th[place]. Sometimes prolonged time to answer when determining correct answer but this is also improving. HEENT--PERRL, EOMI, mucous membranes moist Neck--supple. No JVD. No bruits. Thyroid normal, trachea midline, no adenopathy. Heart--normal S1 and S2. No murmurs, rubs or gallops. Lungs--clear bilaterally, no respiratory distress, no accessory muscle use. Abdomen--normal bowel sounds and soft. Nontender. Nondistended. Morbidly obese Extremities--no cyanosis or clubbing. No edema. Peripheral neuropathy b/l LE. tender to palpation over lumbar spine. Dermatologic--normal skin turgor, normal color (brusing to low back), no abnormal lymph nodes, no rash. Neurologic--cranial nerves II through XII grossly intact. Psychiatric--AOx3, slow to answer at times Results & Data Results & Data ([facility]) Vital Signs (Past 12 Hours) Vital Signs Temp Pulse Pulse Pulse Resp BP Pulse Ox 12/22/20 07:48 36.5 C 66 22 173/93 H 96 12/22/20 05:51 63 12/22/20 04:14 36.7 C 82 20 169/82 H 92 12/22/20 02:00 61 12/21/20 23:59 59 L 12/21/20 23:00 36.5 C 67 20 163/83 H 97 12/21/20 21:32 67 Pulse Ox 12/22/20 07:48 12/22/20 05:51 96 12/22/20 04:14 12/22/20 02:00 97 12/21/20 23:59 12/21/20 23:00 12/21/20 21:32 98 Laboratory Results 12/22/20 12/22/20 12/22/20 Range/Units 06:09 06:09 06:09 WBC 8.47 (4.8-10.8) K/uL RBC 3.38 L (4.2-5.4) M/uL Hgb 9.8 L (12.0-16.0) g/dL Hct 29.1 L (37-47) % MCV 86.1 (80-100) fL MCH 29.0 (25-34) pg MCHC 33.7 (32-36) g/dL RDW Std Deviation 45.2 (36.4-46.3) fL RDW Coeff of Mckayla 14.2 (11.5-14.5) % Plt Count 203 (130-400) K/uL MPV 9.3 (7.4-10.4) fL Immature Gran % (Auto) 0.2 % Neut % (Auto) 76.7 % Lymph % (Auto) 15.9 % [place] % (Auto) 7.1 % Eos % (Auto) 0.1 % Baso % (Auto) 0.0 % Neut # (Auto) 6.49 (1.4-6.5) K/uL Lymph # (Auto) 1.35 (1.2-3.4) K/uL [place] # (Auto) 0.60 H (0.11-0.59) K/uL Eos # (Auto) 0.01 (0-0.5) K/uL Baso # (Auto) 0.00 (0-0.2) K/uL Immature Gran # (Auto) 0.02 (0.00-0.02) K/uL PT 41.1 H (9.0-12.0) Seconds INR 4.6 H (0.9-1.1) Sodium (136-145) mmol/L Potassium (3.5-5.1) mmol/L Chloride (98-107) mmol/L Carbon Dioxide (21-32) mmol/L Anion Gap (3-11) BUN (7-18) mg/dl Creatinine (0.6-1.2) mg/dl Est Cr Clr Drug Dosing ml/min Est GFR ( Amer) Est GFR (Non-Af Amer) BUN/Creatinine Ratio (10-20) Glucose (70-99) mg/dl Calcium (8.5-10.1) mg/dl Iron (35-150) mcg/dl TIBC (250-450) mcg/dl Transferrin (200-360) mg/dl Transferrin % Sat (15-50) % Ferritin (8-388) ng/ml Total Bilirubin (0.2-1) mg/dl AST (15-37) U/L ALT (12-78) U/L Alkaline Phosphatase (45-117) U/L Total Protein (6.4-8.2) gm/dl Albumin (3.4-5.0) gm/dl Globulin (2.5-4.0) gm/dl Albumin/Globulin Ratio (0.9-2) Vitamin B1 25-OH Vitamin D Total Pending Folate (>5.38) ng/ml 12/22/20 12/22/20 12/22/20 Range/Units 06:09 06:09 06:09 WBC (4.8-10.8) K/uL RBC (4.2-5.4) M/uL Hgb (12.0-16.0) g/dL Hct (37-47) % MCV (80-100) fL MCH (25-34) pg MCHC (32-36) g/dL RDW Std Deviation (36.4-46.3) fL RDW Coeff of Mckayla (11.5-14.5) % Plt Count (130-400) K/uL MPV (7.4-10.4) fL Immature Gran % (Auto) % Neut % (Auto) % Lymph % (Auto) % [place] % (Auto) % Eos % (Auto) % Baso % (Auto) % Neut # (Auto) (1.4-6.5) K/uL Lymph # (Auto) (1.2-3.4) K/uL [place] # (Auto) (0.11-0.59) K/uL Eos # (Auto) (0-0.5) K/uL Baso # (Auto) (0-0.2) K/uL Immature Gran # (Auto) (0.00-0.02) K/uL PT (9.0-12.0) Seconds INR (0.9-1.1) Sodium 142 (136-145) mmol/L Potassium 3.7 (3.5-5.1) mmol/L Chloride 113 H (98-107) mmol/L Carbon Dioxide 23 (21-32) mmol/L Anion Gap 6.0 (3-11) BUN 23 H D (7-18) mg/dl Creatinine 0.95 (0.6-1.2) mg/dl Est Cr Clr Drug Dosing 64.5 ml/min Est GFR ( Amer) 70.8 Est GFR (Non-Af Amer) 61.1 BUN/Creatinine Ratio 24.4 H (10-20) Glucose 90 (70-99) mg/dl Calcium 8.3 L (8.5-10.1) mg/dl Iron 67 (35-150) mcg/dl TIBC 204 L (250-450) mcg/dl Transferrin 156 L (200-360) mg/dl Transferrin % Sat 30 (15-50) % Ferritin 327.4 (8-388) ng/ml Total Bilirubin 0.3 (0.2-1) mg/dl AST 15 (15-37) U/L ALT 14 (12-78) U/L Alkaline Phosphatase 55 (45-117) U/L Total Protein 6.6 (6.4-8.2) gm/dl Albumin 2.8 L (3.4-5.0) gm/dl Globulin 3.8 (2.5-4.0) gm/dl Albumin/Globulin Ratio 0.7 L (0.9-2) Vitamin B1 Pending 25-OH Vitamin D Total Folate 4.90 L (>5.38) ng/ml Diagnostic Findings CTAP IMPRESSION: 1. No evidence for traumatic injury to the solid abdominal viscera. 2. Mild compression fractures of the superior endplates of L2 and L4. These are age indeterminate however the CT appearance favors acute to subacute fractures. 3. Slight stranding anterior to the left iliacus muscle with slight asymmetric increased size of the left iliacus muscle. This may reflect a small intramuscular hematoma. No large hematoma. 4. Cholelithiasis. PG Care Time/CCT Total # of Minutes Spent Total Time Spent with Patient: Total time spent is greater than 50% in coordination of care (as documented) at patient's floor/unit and/or counseling patient: Coding Level of Care Code 92682 Subseq Hosp Care Lvl 3 Diagnoses Sepsis due to urinary tract infection A41.9; N39.0 Acute alteration in mental status R41.82 Urinary incontinence R32 Anticoagulated on Coumadin Z79.01 Hypopituitarism E23.0 Secondary adrenal insufficiency E27.49 Hypokalemia E87.6 Central hypothyroidism E03.8 Vitamin B12 deficiency E53.8 Osteopenia M85.80
[2020-12-22] MEDS ORDERED: OPTIRAY 320 100ml IV ONE (09:18)
--- NOTE | 2020-12-22 09:38 | CT Scan Report ---
CT OF THE ABDOMEN AND PELVIS WITH CONTRAST CLINICAL HISTORY: fall, anemia, ?retroperitoneal bleed COMPARISON STUDY: Pelvic ultrasound December 20, 2020. CT of the abdomen and pelvis January 04, 2008. TECHNIQUE: Following IV administration of 94 mL of Optiray-320, axial images of the abdomen and pelvi s were obtained from the lung bases to the proximal femurs. Images were reviewed in the axial, sagitt al, and coronal planes. IV contrast was administered without complication. Automated exposure contro l was utilized for the study. A dose lowering technique was utilized adhering to the principles of A MAMTA. CT DOSE: 1574.49 mGy.cm FINDINGS: Bases are unremarkable. No hemoperitoneum or pneumoperitoneum is noted. There is mild cardi omegaly. There is no evidence for traumatic injury to the liver, spleen, adrenal glands, kidneys or p ancreas. A 1 cm hypodense lateral segment hepatic lesion is unchanged since CT of January 04, 2008. Thi s is benign. There is no hydronephrosis. There is no biliary or pancreatic ductal dilatation. There i s a diverticulum of the third portion of the duodenum. A gallstone within the gallbladder is noted. T here is no evidence for acute cholecystitis. There is colonic diverticulosis without evidence for acu te diverticulitis. There is no evidence for a bowel obstruction. There is no lymphadenopathy. Strandi ng overlying the right hip is likely postsurgical. Right hip arthroplasty is noted. There is no acute hip fracture. There is mild loss of height of the superior endplates of L2 and L4. There may be trac e paravertebral infiltration. There is also slight infiltration anterior to the left iliacus muscle w ith slight asymmetric increased size of the left iliacus muscle compared to the right. No large hemat jamin is identified. IMPRESSION: 1. No evidence for traumatic injury to the solid abdominal viscera. 2. Mild compression fractures of the superior endplates of L2 and L4. These are age indeterminate how ever the CT appearance favors acute to subacute fractures. 3. Slight stranding anterior to the left iliacus muscle with slight asymmetric increased size of the left iliacus muscle. This may reflect a small intramuscular hematoma. No large hematoma. 4. Cholelithiasis. ACT 112: Negative or not required by law. Electronically signed by: Julio Casillas M.D. 12/22/2020 9:37 AM
[2020-12-22] MEDS: hydrALAZINE HCL 20 MG/ML VIAL IV PRN (11:51)
[2020-12-22] MEDS: amLODIPine BESYLATE 5 MG TAB PO SCH (11:56)
[2020-12-23] MEDS: DICLOFENAC SOD 1% GEL 100 GM TUBE EXT SCH ×7 (00:04→23:49)
[2020-12-23] MEDS: LEVOTHYROXINE SODIUM 137 MCG TABLET PO SCH (06:22)
[2020-12-23 06:37] LABS: Hemoglobin 10.6 g/dL (12.0-16.0); Mean Corpuscular Hemoglobin 29.3 pg (25-34); Mean Corpuscular Hgb Conc 34.2 g/dL (32-36); Mean Corpuscular Volume 85.6 fL (80-100); Mean Platelet Volume 9.4 fL (7.4-10.4); Platelet Count 217 K/uL (130-400); RDW Coefficient of Variation 14.2 % (11.5-14.5); RDW Standard Deviation 44.7 fL (36.4-46.3); Red Blood Count 3.62 M/uL (4.2-5.4); White Blood Count 7.42 K/uL (4.8-10.8)
[2020-12-23 06:46] LABS: INR 1.8 (0.9-1.1); Prothrombin Time 17.5 Seconds (9.0-12.0)
[2020-12-23 07:06] LABS: BUN Creatinine Ratio 21.4 (10-20); Calcium 8.5 mg/dl (8.5-10.1); Creatinine Clr Calc Pharmacy 68.1 ml/min; Est GFR (African American) 75.6; Est GFR (Non-African American) 65.2; Potassium 2.9 mmol/L (3.5-5.1)
[2020-12-23] MEDS: CALCITRIOL 0.25 MCG CAPSULE PO SCH ×2 (08:29→20:32)
[2020-12-23] MEDS: CYANOCOBALAMIN 500 MCG TABLET (VITAMIN B-12) PO SCH (08:30)
[2020-12-23] MEDS: amLODIPine BESYLATE 5 MG TAB PO SCH (08:30)
[2020-12-23] MEDS: HYDROCORTISONE 10 MG TAB PO SCH ×2 (08:31→20:32)
[2020-12-23] MEDS: THIAMINE HCL 100 MG TAB PO SCH (08:31)
[2020-12-23] MEDS: FOLIC ACID 400 MCG TAB PO SCH (08:31)
[2020-12-23] MEDS: cefTRIAXone SODIUM 2,000 MG in DEXTROSE 5% 50 ML IV SCH (08:32)
[2020-12-23] MEDS: LIDOCAINE 5% 1 PATCH TD SCH ×2 (08:32→08:34)
[2020-12-23] MEDS: PANTOprazole 40 MG TAB PO SCH (08:32)
[2020-12-23] MEDS: OXYBUTYNIN CHLORIDE XL 5 MG TABCR PO SCH (08:32)
[2020-12-23] MEDS: POTASSIUM CHLORIDE CRTAB 20 MEQ TABCR PO SCH ×3 (09:21→20:30)
--- NOTE | 2020-12-23 12:17 | Hospitalist Progress Note ---
Date of Service December 23, 2020 Assessment & Plan (1) Sepsis due to urinary tract infection: * Sepsis due to UTI/urinary incontinence/altered mental status/recent second COVID-19 vaccine * Resolving with tx of UTI (and also B12/folate) * Tolerating regular diet * Continue stress dose steroids for now given hx pituitary resection --> changed back to her usual 15mg QAM hydrocortisone and 5mg in evening * Urine culture with E coli * Continue ceftriaxone for now --> transition to Keflex on discharge * Blood culture NGTD * Oxybutynin for incontinence * TSH undetectable in patient with hx resection, FT4 elevated slightly. Discussed with Dr. Headley and continue current dose of levothyroxine recomme nded * PT/OT consults ordered - recs for SNF Cognitive decline/gait instability/Falls/back pain * ECHO without wma, EF 55-60%, LV systolic function normal. Mild LVH, Grade I di astolic dysfunction, RV mildly dilated. Mild-moderate tricuspid regurgitation. RVSP elevated 30-40mmHG * Tylenol prn pain, lidocaine, voltaren gel to back * B12 checked given weakness/fall and hx of deficiency but not on supplementation --> LOW * --> Replaced with IM x1 and continue with 2000IU PO daily and reduce to 1000mg after 2 weeks. Follow up with PCP * Given MCV wnl, added folate/iron studies * --> Folate also low and started on replacement * --> Iron studies c/w chronic disease * Will continue to hold coumadin for elevated INR 4.6 and given 2.5mg Vit K given hematoma, INR is 1.8 today * CTAP obtained to look for retroperitoneal bleeding given continued drop in hemoglobin. * --> no traumatic injury to solid organs. * --> Mild compression fractures of the superior endplates of L2 and L4. These are age indeterminate however the CT appearance favors acute to subacute fractures. Will have orthotics fit for brace * Slight stranding anterior to the left iliacus muscle with slight asymmetric increased size of the left iliacus muscle. This may reflect a small intramuscular hematoma. No large hematoma d/c tomorrow (2) Acute alteration in mental status: * See above. * CT Head without acute abn * CXR without consolidation * Likely metabolic encephalopathy secondary to UTI and sepsis * resolved, mental status at baseline (3) Urinary incontinence: * Predisposing to UTI * Oxybutynin (4) Anticoagulated on Coumadin: * Due to previous DVT * INR supratherapeutic at 4.6, Vitamin K on 12/22, INR now 1.8 * resume Coumadin 5mg daily * Vaginal US without issues given bleeding reported in ER on admission * H/h dropped but on fluids. 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 every morning continued * To follow up with Endocrinology at discharge (9) Vitamin B12 deficiency: * Hx of * Wasn't taking replacement at this time * Given IM for and started daily dosing * Follow up with PCP * PT/OT consults as above (10) Osteopenia: * Resumed calcitriol .5mcg BID * Vit D level added given fractures Dispo: continued inpatient stay Patient would like to return home at discharge, plan for repeat therapy assessment, possible home with home health tomorrow Admission and Anticipated Discharge Date Admission Date: December 20, 2020 Subjective patient doing well today, says she is feeling stronger, no back pain RN helped her get into the bathroom to wash up, no issues need to see PT again, on Wednesday she had a 6 click score of 17, borderline if she could return home reviewed chart and labs INR down to 1.8 after Vitamin K 2.5mg yesterday, K is a little low at 2.7 urine culture grew out E coli, sensitive to cephalosporins patient would like to go home if possible, will shoot for tomorrow, d/w trimming caserar manager of Systems Review of Systems: All systems reviewed & are unremarkable except as noted in Subjective Physical Exam Constitutional: well developed, well nourished and + overweight; no acute distress Neck: trachea midline, no thyromegaly Respiratory: normal respiratory effort, lungs clear to auscultation Cardiovascular: RRR, no murmur, no edema Gastrointestinal (Abdomen): normal bowel sounds, soft, nontender, no hepatosplenomegaly Musculoskeletal: no cyanosis or clubbing, extremities motor strength 5/5 Skin: no rashes, warm and dry Neurologic: patellar DTR's 2+ bilat, sensation intact and PERRL, EOMI, accommodation nl, no face palsy, no dysarthria Psychiatric: A+Ox3, euthymic affect Lymphatic: no cervical or axillary lymphadenopathy Results & Data Results & Data ([facility]) Vital Signs (Past 12 Hours) Vital Signs Temp Pulse Pulse Resp BP BP Pulse Ox 12/23/20 11:37 36.5 C 76 18 160/84 H 94 12/23/20 10:52 68 12/23/20 07:15 36.8 C 62 16 159/84 H 97 12/23/20 04:00 36.6 C 63 20 186/78 H 97 Laboratory Results Laboratory Results - last 24 hr 12/23/20 12/23/20 12/23/20 06:16 06:16 06:16 WBC 7.42 RBC 3.62 L Hgb 10.6 L Hct 31.0 L MCV 85.6 MCH 29.3 MCHC 34.2 RDW Std Deviation 44.7 RDW Coeff of Mckayla 14.2 Plt Count 217 MPV 9.4 PT 17.5 H INR 1.8 H Sodium 142 Potassium 2.9 L D Chloride 108 H Carbon Dioxide 23 Anion Gap 11.0 BUN 19 H Creatinine 0.90 Est Cr Clr Drug Dosing 68.1 Est GFR ( Amer) 75.6 Est GFR (Non-Af Amer) 65.2 BUN/Creatinine Ratio 21.4 H Glucose 79 Calcium 8.5 Medications Administered Current Inpatient Medications Amlodipine Besylate (Amlodipine Besylate 5 Mg Tab) 5 mg PO QAM [facility]ADDY Stop: 01/21/21 10:29 Last Admin: 12/23/20 08:30 Dose: 5 mg Documented by: Calcitriol (Calcitriol 0.25 Mcg Capsule) 0.5 mcg PO BID [facility]ADDY Stop: 01/19/21 20:59 Last Admin: 12/23/20 08:29 Dose: 0.5 mcg Documented by: Cyanocobalamin (Cyanocobalamin 500 Mcg Tablet (Vitamin B-12)) 2,000 mcg PO QAM MADDY Stop: 01/20/21 08:59 Last Admin: 12/23/20 08:30 Dose: 2,000 mcg Documented by: Diclofenac Sodium (Diclofenac Sod 1% Gel 100 Gm Tube) 2 gm EXT Q4 [facility] Stop: 01/20/21 07:59 Last Admin: 12/23/20 08:29 Dose: 2 gm Documented by: Folic Acid (Folic Acid 400 Mcg Tab) 400 mcg PO QAM [facility] Stop: 01/21/21 08:59 Last Admin: 12/23/20 08:31 Dose: 400 mcg Documented by: Hydralazine HCl (Hydralazine Hcl 20 Mg/Ml Vial) 10 mg IV Q8H PRN PRN Reason: hypertension Stop: 01/20/21 09:44 Last Admin: 12/22/20 11:51 Dose: 10 mg Documented by: Hydrocortisone (Hydrocortisone 10 Mg Tab) [address] [facility] Stop: 01/21/21 08:59 Last Admin: 12/23/20 08:31 Dose: 15 mg Documented by: Hydrocortisone (Hydrocortisone 10 Mg Tab) 5 mg PO [facility] Stop: 01/21/21 20:59 Last Admin: 12/22/20 20:31 Dose: 5 mg Documented by: Ceftriaxone Sodium 2,000 mg/ (Dextrose) 70 mls @ 100 mls/hr IV DAILY [facility]; Protocol Stop: 12/30/20 08:59 Last Infusion: 12/23/20 09:15 Dose: Infused Documented by: Levothyroxine Sodium (Levothyroxine Sodium 137 Mcg Tablet) [facility]: 01/20/21 06:29 Last Admin: 12/23/20 06:22 Dose: 137 mcg Documented by: Lidocaine (Lidocaine 5% 1 Patch) [address] [facility] Stop: 01/19/21 13:14 Last Admin: 12/23/20 08:34 Dose: Not Given Documented by: Miscellaneous (Remove Lidoderm Patch) 1 ea N/A DAILY@2100 [facility] Stop: 01/19/21 22:59 Last Admin: 12/22/20 20:32 Dose: 1 ea Documented by: Ondansetron HCl (Ondansetron Inj 2 Mg/Ml 2 Ml Vial) 4 mg IV Q6H PRN PRN Reason: Nausea Stop: 01/19/21 05:44 Oxybutynin Chloride (Oxybutynin Chloride Xl 5 Mg Tabcr) [address] [facility] Stop: 01/19/21 16:14 Last Admin: 12/23/20 08:32 Dose: 5 mg Documented by: Pantoprazole Sodium (Pantoprazole 40 Mg Tab) 40 mg PO QAM [facility] Stop: 01/21/21 08:59 Last Admin: 12/23/20 08:32 Dose: 40 mg Documented by: Phenazopyridine HCl (Phenazopyridine Hcl 200 Mg Tab) 200 mg PO TID PRN PRN Reason: Dysuria Stop: 01/19/21 13:02 Last Admin: 12/20/20 14:21 Dose: 200 mg Documented by: Polyethylene Glycol (Polyethylene (Miralax) 17 Gm Pack) 17 gm PO DAILY PRN PRN Reason: Constipation Stop: 01/19/21 17:58 Potassium Chloride (Potassium Chloride Crtab 20 Meq Tabcr) 20 meq PO TID [facility] Stop: 01/22/21 08:59 Last Admin: 12/23/20 09:21 Dose: 20 meq Documented by: Thiamine HCl (Thiamine Hcl 100 Mg Tab) 100 mg PO QAM [facility] Stop: 01/20/21 08:59 Last Admin: 12/23/20 08:31 Dose: 100 mg Documented by: Warfarin Sodium (Warfarin Sod 5 Mg Tab) 5 mg PO DAILY@1600 [facility] Stop: 01/22/21 15:59 PG Care Time/CCT Total # of Minutes Spent Total Time Spent with Patient: Total time spent is greater than 50% in coordination of care (as documented) at patient's floor/unit and/or counseling patient: Coding Level of Care Code 63512 Subseq Hosp Care Lvl 3 Diagnoses Sepsis due to urinary tract infection A41.9; N39.0 Acute alteration in mental status R41.82 Urinary incontinence R32 Anticoagulated on Coumadin Z79.01 Hypopituitarism E23.0 Secondary adrenal insufficiency E27.49 Hypokalemia E87.6 Central hypothyroidism E03.8 Vitamin B12 deficiency E53.8 Osteopenia M85.80
[2020-12-23] MEDS ORDERED: WARFARIN SOD 5 MG TAB PO SCH (16:00)
[2020-12-23] MEDS: hydrALAZINE HCL 20 MG/ML VIAL IV PRN (20:27)
[2020-12-23] MEDS ORDERED: ACETAMINOPHEN 500 MG TAB PO PRN (23:36)
[2020-12-24] MEDS: DICLOFENAC SOD 1% GEL 100 GM TUBE EXT SCH ×3 (04:30→11:23)
[2020-12-24] MEDS: LEVOTHYROXINE SODIUM 137 MCG TABLET PO SCH (05:32)
[2020-12-24 07:36] LABS: INR 1.6 (0.9-1.1); Prothrombin Time 15.3 Seconds (9.0-12.0)
[2020-12-24] MEDS: CYANOCOBALAMIN 500 MCG TABLET (VITAMIN B-12) PO SCH (07:49)
[2020-12-24] MEDS: OXYBUTYNIN CHLORIDE XL 5 MG TABCR PO SCH (07:50)
[2020-12-24] MEDS: THIAMINE HCL 100 MG TAB PO SCH (07:50)
[2020-12-24] MEDS: amLODIPine BESYLATE 5 MG TAB PO SCH (07:50)
[2020-12-24] MEDS: FOLIC ACID 400 MCG TAB PO SCH (07:50)
[2020-12-24] MEDS: HYDROCORTISONE 10 MG TAB PO SCH (07:51)
[2020-12-24] MEDS: PANTOprazole 40 MG TAB PO SCH (07:51)
[2020-12-24] MEDS: CALCITRIOL 0.25 MCG CAPSULE PO SCH (07:51)
[2020-12-24] MEDS: cefTRIAXone SODIUM 2,000 MG in DEXTROSE 5% 50 ML IV SCH (07:52)
[2020-12-24] MEDS: POTASSIUM CHLORIDE CRTAB 20 MEQ TABCR PO SCH ×2 (07:53→14:05)
[2020-12-24] MEDS: LIDOCAINE 5% 1 PATCH TD SCH (07:56)
[2020-12-24] MEDS ORDERED: CALCITONIN SALMON NA 200 IU/AC 3.7 ML BTL SCH (09:00)
[2020-12-24] MEDS: hydrALAZINE HCL 20 MG/ML VIAL IV PRN (11:23)
--- NOTE | 2020-12-24 13:04 | Discharge Summary ---
Date of Service December 24, 2020 Admission HPI Per Admitting Provider The patient is a 70-year-old female with a past medical history including urinary incontinence, urinary tract infection, right hip replacement, status post transsphenoidal pituitary resection, vitamin D deficiency, vitamin B12 deficiency, impaired fasting glucose, idiopathic polyneuropathy, secondary adrenal insufficiency, hypopituitarism, growth hormone deficiency, fatigue, depression, anxiety, dyslipidemia, osteopenia and history of DVT. Her reports that she thought she was getting a urinary tract infection recently. She did have the second COVID-19 vaccine 2 days ago, and since that time has had decreased oral intake and generally been feeling fatigued. Principal Diagnosis Sepsis due to UTI Discharge Exam Constitutional well developed, well nourished and + overweight; no acute distress Neck trachea midline, no thyromegaly Respiratory normal respiratory effort, lungs clear to auscultation Cardiovascular RRR, no murmur, no edema Gastrointestinal (Abdomen) normal bowel sounds, soft, nontender, no hepatosplenomegaly Musculoskeletal no cyanosis or clubbing, extremities motor strength 5/5 Skin no rashes, warm and dry Neurologic patellar DTR's 2+ bilat, sensation intact and PERRL, EOMI, accommodation nl, no face palsy, no dysarthria Psychiatric A+Ox3, euthymic affect Lymphatic no cervical or axillary lymphadenopathy Discharge Data Allergies Allergy/AdvReac Type Severity Reaction Status Date / Time Penicillins Allergy Mild hives Verified 12/20/20 03:29 sertraline AdvReac Intermediate acting Verified 12/20/20 03:29 funny Consultations 12/20/20 03:13 ED Decision to Admit Stat 12/20/20 05:45 Consult Case Management - Discharge Planning Routine Ordered Studies 12/20/20 02:02 CT head/brain wo con Urgent 12/20/20 04:14 US pelvic complete Urgent US transvaginal Urgent 12/22/20 08:30 CT abd pelvis IV con only Routine Hospital Course (1) Sepsis due to urinary tract infection: * Sepsis due to UTI/urinary incontinence/altered mental status/recent second COVID-19 vaccine * Resolved with tx of UTI (and also B12/folate) * treated with Rocephin, change to Keflex for three more days on discharge * Oxybutynin for incontinence * PT/OT consults ordered - recs for rehab Cognitive decline/gait instability/Falls/back pain * started on B12, thiamine, folic acid supplements (2) Acute alteration in mental status: * See above. * CT Head without acute abn * CXR without consolidation * Likely metabolic encephalopathy secondary to UTI and sepsis * resolved, mental status at baseline (3) Urinary incontinence: * Predisposing to UTI * Oxybutynin (4) Anticoagulated on Coumadin: * Due to previous DVT * INR supratherapeutic at 4.6, Vitamin K on 12/22, INR now 1.8 * resumed Coumadin 5mg daily on 12/23, follow INR at rehab * Vaginal US without issues given bleeding reported in ER on admission * H/h dropped but on fluids. 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 every morning continued * To follow up with Endocrinology at discharge (9) Vitamin B12 deficiency: * Hx of * Wasn't taking replacement at this time * Given IM for and started daily dosing * Follow up with PCP * PT/OT consults as above (10) Osteopenia: * Resumed calcitriol .5mcg BID * Vit D level added given fractures Dispo: discharge to rehab (11) Hypertension: started on Norvasc 5mg daily, decent response but pressures still high increased to 10mg PO daily on discharge follow up with PCP Total Time Total Time Spent Total Time Spent (In Minutes): 33 minutes Total Time Includes: Examination of the Patient, Discharge Planning and Medication Reconciliation Discharge Plan Discharge Items Patient Disposition: Transfer Inpatient Rehab Fac Reason For Visit: SEPSIS DUE TO UTI, CONFUSION Discharge Diagnosis: Sepsis due to UTI, E coli Weakness Confusion Condition on Discharge: Good Goals: improve strength and mobility complete treatment of UTI Activity: Resume your previous activity Weightbearing: Full weightbearing Non-emergency contact: Primary Care Provider Call non-emergency contact if: you have any medication questions and your symptoms worsen Follow-up/Referrals: Jerardo Grace III, MD [Primary Care Provider] - (one week after discharge from rehab) Diet: Regular Addtl Attending Provider Instructions: Medications: - KEFLEX: complete 3 more days of 500mg twice a day, can start in the morning on 12/25/20, this is to treat E coli UTI - AMLODIPINE: 10mg daily for elevated blood pressure, new medication that was started this admission for untreated hypertension - POTASSIUM: 20mEq daily for low potassium - VOLTAREN GEL: apply to joints as needed for pain - THIAMINE, FOLIC ACID, VITAMIN B12, CALCITRIOL: continue supplements, these were started while inpatient Presented with weakness, confusion, found to have E coli UTI, initially treated with Rocephin, good response, no fever, vitals stable needs rehab prior to returning home, will transfer to [facility] recommend follow up with PCP one week after discharge from rehab Pending Studies at Discharge: No Stand-Alone Forms: My [facility] Skilled Items Patient informed of condition?: Yes DNR: No Discharge Level of Care: Acute rehab Communicable Disease: No Discharge Prognosis: Stable Lines: None Urinary Catheter: No Medications and DC Order Prescriptions: New amlodipine [Norvasc] 5 mg Tablet 10 mg PO QAM Qty: 60 RF: 0 potassium chloride [Klor-Con M20] 20 mEq Tablet,Er Particles/Crystals 20 meq PO DAILY Qty: 30 RF: 0 diclofenac sodium [Voltaren] 1 % Gel 2 g EXT Q4 Qty: 100 RF: 0 calcitriol 0.25 mcg Capsule 0.5 mcg PO BID 30 Days Qty: 120 RF: 1 cyanocobalamin (vitamin B-12) 500 mcg Tablet 2,000 mcg PO QAM Qty: 120 RF: 0 folic acid 400 mcg Tablet 400 mcg PO QAM Qty: 30 RF: 0 thiamine HCl (vitamin B1) [Vitamin B-1] 100 mg Tablet 100 mg PO QAM Qty: 30 RF: 0 Continued hydrocortisone 10 mg tablet 10 mg PO .COMPLEX 90 Days Qty: 90 RF: 3 warfarin 5 mg tablet 5 - 7.5 mg PO DAILY Qty: 100 RF: 5 oxybutynin chloride 5 mg tablet extended release 24hr 5 mg PO DAILY Qty: 30 RF: 2 (DME) Wheeled Walker Misc See Rx Instructions .ROUTE .MEDSUPPLY Qty: 1 RF: 0 levothyroxine 137 mcg tablet 137 mcg PO QAM RF: 0 acetaminophen [Tylenol Extra Strength] 500 mg Tablet 1,000 - 1,500 mg PO Q6H PRN (Reason: Pain) RF: 0 Discharge Orders: Discharge Order (Routine); Ordered 12/24/20 Ordered By: Art Louie Admission Data Admit Date/Time: 12/20/20 04:08 Attending Provider: Art Louie Admit Provider: Rodrigo Murphy Primary Care Provider: Jerardo Grace III Other Providers: Rodrigo Murphy ; [facility] Other Interventions: Discharge Summary Assessment (RN) Last Done: 12/24/20 14:18 Coding Level of Care Code D/C Day Management >30 mins Diagnoses Sepsis due to urinary tract infection A41.9; N39.0 Acute alteration in mental status R41.82 Urinary incontinence R32 Anticoagulated on Coumadin Z79.01 Hypopituitarism E23.0 Secondary adrenal insufficiency E27.49 Hypokalemia E87.6 Central hypothyroidism E03.8 Vitamin B12 deficiency E53.8 Osteopenia M85.80 Hypertension I10
== END 2020-12-24 16:10 | DRG 871 ==
LOC: ED 01:52 → 2W 04:08 → SUATTDRO 04:08 → 2W 05:19

== ENCOUNTER 2021-06-03 21:16 | Observation (INO) ==
[2021-06-03] MEDS ORDERED: SODIUM CHLORIDE 0.9% 1000ML 1,000 ML IV ONE (23:20)
[2021-06-03] MEDS ORDERED: ONDANSETRON INJ 2 MG/ML 2 ML VIAL IV STA (23:20)
[2021-06-03] MEDS ORDERED: HYDROmorphone INJ 0.5 MG/0.5 ML SYR IV STA (23:20)
[2021-06-03 23:21] LABS: Hemoglobin 11.5 g/dL (12.0-16.0); Mean Corpuscular Hemoglobin 31.3 pg (25-34); Mean Corpuscular Hgb Conc 34.8 g/dL (32-36); Mean Corpuscular Volume 89.7 fL (80-100); Mean Platelet Volume 8.9 fL (7.4-10.4); Platelet Count 304 K/uL (130-400); RDW Coefficient of Variation 13.5 % (11.5-14.5); RDW Standard Deviation 44.7 fL (36.4-46.3); Red Blood Count 3.68 M/uL (4.2-5.4)
--- NOTE | 2021-06-03 23:24 | Emergency Department Note ---
Impression & Plan Acute cholecystitis ED Provider Note Name: GISELA MANZANO Age: 70 Sex: F Arrives Via: Walk-In Informant: Patient, ED Provider: Mata David MD Chief Complaint: abdominal pain Impression: acute cholecystitis Medical Decision Makin yr old female with extensive PMH including DVT on anticoagulation, HTN, DLP, Depression, Hypothyroid, amongst others arrives for acute epigastric pain starting this afternoon associated with nausea and radiation to RUQ. TTP epi/RUQ but without peritonitis. Labs with LFT bump but bili OK, WBC wnl. Afebrile. CT with findings concerning for acute cholecystitis. With normal bili this appears not to be obstructive process at this time. Given IV mefoxin and hospitalist consulted as patient is medically complex and will need management prior to OR. Patient comfortable with plan. Prior Medical Record and Triage/Nursing Notes reviewed by Me Additional history obtained from /chart Differentials:Appendicitis, cholecystitis, obstructing bili stone, pancreatitis, diverticulitis, UTI, obstruction, mesenteric ischemia, aortic pathology, inflammatory bowel disease, renal colic, PUD, volvulus, as well as other pathologies. Vital Signs: reviewed and remarkable for wnl Interventions: Saline lock, Dilaudid 0.5mg IV, zofran 4mg IV, mefoxin 2gm IV, NSS Bolus Labs:Reviewed and remarkable for AST/LFT elevation, normal bili Imaging:[facility] Radiologist interpretation reviewed by me: "CT ABDOMEN & PELVIS With Contrast: COMPARISON: CT abdomen pelvis 12/22/2020 IMPRESSION: Prominence of the gallbladder wall and pericholecystic haziness are concerning for acute cholecystitis. The solid organs are within normal limits. No obstruction. Diverticulosis. Worsening moderate compression fractures of L2 and L4. Radiologist: Lissett Gibbs MD" EKG:Per My Interpretation: Indication Epigastric Pain: NSR 69 bpm, qtc 396. No Ectopy. No Ischemia. Compared to EKG 01/01/21, no significant changes. Cardiac/Tele Monitoring: Cardiac Monitoring: An Order was placed for continuous cardiac monitoring. The monitor shows a rate of 65 with a normal sinus rhythm. Consults:Dr Abdoul SHULTZ Hospitalist Plan: Disposition:Hospitalization. Condition: Good History of Present Illness:70 yr old female arrives for evaluation of abdominal pain. Patient notes sudden onset epigastric pain this afternoon at 3p. She notes pain radiates RUQ. Associated with nausea, chills, shaking. Denies falls, trauma, injuries. She denies history abdominal issues. No known sick contacts. No history of abdominal surgeries. Movement makes worse, rest makes better. Denies vomiting, headache, chest pain, measured fevers, shob, neck pain, urinary/bowel symptoms, leg swelling, rashes, syncope, nor other symptoms. No medications prior to arrival. No family history of abdominal issues. ROS: See above HPI for pertinent positives & negatives. A total of 10 systems reviewed and were otherwise negative. Past Medical History:See Below Past Surgical History:See Below Family History:See Below Social History:See Below Home Medications:See Below Allergies:PNC, Sertraline, Tramadol Vitals:Blood Pressure: 146/74, Pulse 83, RR 20, T 37 C, O2 98% on RA Physical Exam: GENERAL: Patient is very uncomfortable appearing and in moderate distress. Crying EYES: No scleral icterus, unremarkable pupils. ENT: Mucous membranes moist, no nasal congestion. NECK: No masses appreciated, nomeningismus, trachea is midline. RESPIRATORY: No dyspnea. Clear to auscultation and equal bilaterally. No wheeze, no rhonchi. CARDIOVASCULAR: Regular rate and rhythm.No murmurs, rubs, gallops appreciated. GASTROINTESTINAL: Upper abdominal TTP with Right > Left. Lower abdomen soft, non-tender. No peritonitis.Bowel sounds positive.No masses appreciated. BACK: No midline tenderness, no CVA tenderness EXTREMITIES: Normal motion all extremities, no cyanosis, no edema. NEUROLOGIC: Alert and oriented, no acute motor or sensory deficits, no focal weakness, cranial nerves grossly intact. SKIN: No rash, no jaundice, no diaphoresis. PSYCH: Appropriate GCS: 15 ED Course: Times/Reassessments: Much improved with iv pain medications. Breathing comfortably and agreeable to hospitalization Mata David MD Past Med/Surg History Medical History Acute alteration in mental status Acute UTI Anticoagulated on Coumadin Anxiety Bilateral lower extremity edema Due water retention- cannot take diuretics due to urinary frequency Central hypothyroidism Depression DVT (deep venous thrombosis) X 2-WAS PLACED ON WARFARIN "YRS AGO"-NO ISSUES SINCE PER PT Dyslipidemia Folate deficiency Growth hormone deficiency Hyperlipidemia NO MEDS CURRENTLY Hypertension Hypokalemia Hyponatremia Hypopituitarism Idiopathic polyneuropathy IFG (impaired fasting glucose) Lumbar compression fracture Minimal endplate deformity Obesity Osteopenia 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 Follows with neurosurgery PRN. Last seen by eyad January 2020. Pt denies recent issues Secondary adrenal insufficiency SOB (shortness of breath) on exertion 1 FLIGHT Thiamine deficiency Urinary, incontinence, stress female Vitamin B12 deficiency Vitamin D deficiency Surgical History History of breast biopsy LEFT-BENIGN History of cataract surgery R/L History of colonoscopy (05/31/18) Dr. Gonzalez, sigmoid diverticulosis, 4 mm sigmoid tubular adenoma polyp removed, recheck 5 years History of right hip replacement (~04/2020) History of tubal ligation Status post transsphenoidal pituitary resection 1993 C/RADIATION Family History Father Deep vein thrombosis of lower extremity Peripheral artery disease Aunt Breast cancer Grandmother (Paternal) Coronary heart disease Grandfather (Paternal) Coronary heart disease Mother Schizophrenia Denies family history of Ovarian cancer Prostate cancer Myocardial infarction Colorectal cancer Social History Smoking Status: Never smoker Second Hand Exposure: No; Hx Alcohol Use: No Hx Substance Use: No Preferred Language: [place] Communication Ability: Effective Visual Impairment: No Limitations Hearing Ability: Normal 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 Beliefs That Will Affect Care: None marital status: Current Living Situation: Spouse current occupational status: retired Feels Safe at Home: Yes Dental Care, Regularly: No Physical Activity Frequency: Does not Exercise Seatbelt Use: sometimes Assistive Devices: Glasses and Walker Allergies Allergies Allergy/AdvReac Type Severity Reaction Status Date / Time Penicillins Allergy Mild hives Verified 06/04/21 01:54 sertraline AdvReac Intermediate acting Verified 06/04/21 01:54 funny tramadol AdvReac Intermediate Hyponatremi Verified 06/04/21 01:54 a Home Meds Home Medications Medication Instructions Recorded Confirmed amlodipine 5 mg tablet 10 mg PO QAM 06/04/21 06/04/21 Previous Rx's Medication Instructions Recorded Wheeled Walker #1 ea 04/17/20 warfarin 5 mg tablet 5 - 7.5 mg PO DAILY #100 tab 08/05/20 cyanocobalamin (vitamin B-12) 500 2,000 mcg PO QAM #120 tab 12/24/20 mcg tablet folic acid 400 mcg tablet 400 mcg PO QAM #30 tab 12/24/20 thiamine HCl (vitamin B1) 100 mg 100 mg PO QAM #30 tab 12/24/20 tablet (Vitamin B-1) multivitamin 1 tab PO DAILY #30 tab 01/16/21 ergocalciferol (vitamin D2) 1,250 1,250 mcg PO .COMPLEX #16 cap 02/05/21 mcg (50,000 unit) capsule (Vitamin D2) hydrocortisone 10 mg tablet 10 mg PO .COMPLEX 90 Days #300 tab 02/20/21 potassium chloride 20 mEq 20 meq PO BID #60 tab 02/24/21 tablet,extended release(part/cryst) (Klor-Con M) levothyroxine 137 mcg tablet 137 mcg PO QAM #30 tab 04/02/21 oxybutynin chloride 5 mg 5 mg PO DAILY #90 tab 04/02/21 tablet,extended release 24 hr calcitriol 0.25 mcg capsule 0.5 mcg PO BID 30 Days #120 cap 05/23/21 Results & Data (ED) Vital Signs Vital Signs - 24 hr 06/03/21 21:17 06/03/21 23:24 06/04/21 00:55 Temperature 37 C Temperature Source Oral Pulse Rate 83 Pulse Rate [Brachial] 74 96 H Respiratory Rate 20 24 28 H Respiratory Effort / Characteristics SOB on Exertion Blood Pressure 146/74 H Blood Pressure [Left Arm] 146/78 H 182/79 H Blood Pressure Mean 98 Blood Pressure Mean [Left Arm] 100 113 Pulse Oximetry 98 99 95 Oxygen Delivery Method Room Air Room Air Room Air Sepsis Recent Fever Within 48 Hours No Sepsis New/Unexplained Change in Mental Status No Sepsis Action Taken by Nursing No Action Required Laboratory Data Result diagrams: 06/03/21 23:05 06/03/21 23:05 Lab Results 06/03/21 06/03/21 06/03/21 Range/Units 23:05 23:05 23:05 WBC 8.80 (4.8-10.8) K/uL RBC 3.68 L (4.2-5.4) M/uL Hgb 11.5 L (12.0-16.0) g/dL Hct 33.0 L (37-47) % MCV 89.7 (80-100) fL MCH 31.3 (25-34) pg MCHC 34.8 (32-36) g/dL RDW Std Deviation 44.7 (36.4-46.3) fL RDW Coeff of Mckayla 13.5 (11.5-14.5) % Plt Count 304 (130-400) K/uL MPV 8.9 (7.4-10.4) fL Immature Gran % (Auto) 0.3 % Neut % (Auto) 68.3 % Lymph % (Auto) 24.5 % [place] % (Auto) 5.6 % Eos % (Auto) 1.0 % Baso % (Auto) 0.3 % Neut # (Auto) 6.00 (1.4-6.5) K/uL Lymph # (Auto) 2.16 (1.2-3.4) K/uL [place] # (Auto) 0.49 (0.11-0.59) K/uL Eos # (Auto) 0.09 (0-0.5) K/uL Baso # (Auto) 0.03 (0-0.2) K/uL Immature Gran # (Auto) 0.03 H (0.00-0.02) K/uL PT (9.0-12.0) Seconds INR (0.9-1.1) APTT (21.0-31.0) Seconds PTT Ratio Sodium 137 (136-145) mmol/L Potassium 3.3 L (3.5-5.1) mmol/L Chloride 105 (98-107) mmol/L Carbon Dioxide 23 (21-32) mmol/L Anion Gap 9.0 (3-11) BUN 15 (7-18) mg/dl Creatinine 1.13 (0.6-1.2) mg/dl Est Cr Clr Drug Dosing 53.7 ml/min Est GFR ( Amer) 57.4 ml/min Est GFR (Non-Af Amer) 49.6 ml/min BUN/Creatinine Ratio 13.5 (10-20) Glucose 93 (70-99) mg/dl Calcium 8.5 (8.5-10.1) mg/dl Total Bilirubin 1.0 (0.2-1) mg/dl AST 428 H (15-37) U/L ALT 133 H (12-78) U/L Alkaline Phosphatase 86 (45-117) U/L Total Protein 8.0 (6.4-8.2) gm/dl Albumin 3.3 L (3.4-5.0) gm/dl Globulin 4.7 H (2.5-4.0) gm/dl Albumin/Globulin Ratio 0.7 L (0.9-2) Lipase 202 (73-393) U/L TSH 0.015 L (0.300-4.500) uIu/ml Urine Color Dark Yellow Urine Appearance Clear (Clear) Urine pH 5.0 (4.5-7.5) Ur Specific [place] 1.018 (1.000-1.030) Urine Protein Negative (Negative) Urine Glucose (UA) Negative (Negative) Urine Ketones Negative (Negative) Urine Blood 2+ H (Negative) Urine Nitrite Positive A (Negative) Urine Bilirubin Negative (Negative) Urine Urobilinogen Negative (Negative) Ur Leukocyte Esterase 1+ H (Negative) Urine WBC (Auto) 10-30 H (0-5) /hpf Urine RBC (Auto) 0-4 (0-4) /hpf U Hyaline Cast (Auto) 1-5 (0-5) /lpf U Epithel Cells (Auto) >30 H (0-5) /lpf Urine Bacteria (Auto) 4+ H (Negative) COVID-19 Eval Order SARS-CoV-2 (PCR) (Negative) 06/04/21 06/04/21 06/04/21 Range/Units 01:19 01:19 01:35 WBC (4.8-10.8) K/uL RBC (4.2-5.4) M/uL Hgb (12.0-16.0) g/dL Hct (37-47) % MCV (80-100) fL MCH (25-34) pg MCHC (32-36) g/dL RDW Std Deviation (36.4-46.3) fL RDW Coeff of Mckayla (11.5-14.5) % Plt Count (130-400) K/uL MPV (7.4-10.4) fL Immature Gran % (Auto) % Neut % (Auto) % Lymph % (Auto) % [place] % (Auto) % Eos % (Auto) % Baso % (Auto) % Neut # (Auto) (1.4-6.5) K/uL Lymph # (Auto) (1.2-3.4) K/uL [place] # (Auto) (0.11-0.59) K/uL Eos # (Auto) (0-0.5) K/uL Baso # (Auto) (0-0.2) K/uL Immature Gran # (Auto) (0.00-0.02) K/uL PT 26.6 H (9.0-12.0) Seconds INR 2.8 H (0.9-1.1) APTT 43.6 H (21.0-31.0) Seconds PTT Ratio 1.7 Sodium (136-145) mmol/L Potassium (3.5-5.1) mmol/L Chloride (98-107) mmol/L Carbon Dioxide (21-32) mmol/L Anion Gap (3-11) BUN (7-18) mg/dl Creatinine (0.6-1.2) mg/dl Est Cr Clr Drug Dosing ml/min Est GFR ( Amer) ml/min Est GFR (Non-Af Amer) ml/min BUN/Creatinine Ratio (10-20) Glucose (70-99) mg/dl Calcium (8.5-10.1) mg/dl Total Bilirubin (0.2-1) mg/dl AST (15-37) U/L ALT (12-78) U/L Alkaline Phosphatase (45-117) U/L Total Protein (6.4-8.2) gm/dl Albumin (3.4-5.0) gm/dl Globulin (2.5-4.0) gm/dl Albumin/Globulin Ratio (0.9-2) Lipase (73-393) U/L TSH (0.300-4.500) uIu/ml Urine Color Urine Appearance (Clear) Urine pH (4.5-7.5) Ur Specific [place] (1.000-1.030) Urine Protein (Negative) Urine Glucose (UA) (Negative) Urine Ketones (Negative) Urine Blood (Negative) Urine Nitrite (Negative) Urine Bilirubin (Negative) Urine Urobilinogen (Negative) Ur Leukocyte Esterase (Negative) Urine WBC (Auto) (0-5) /hpf Urine RBC (Auto) (0-4) /hpf U Hyaline Cast (Auto) (0-5) /lpf U Epithel Cells (Auto) (0-5) /lpf Urine Bacteria (Auto) (Negative) COVID-19 Eval Order Covid19 at [facility] SARS-CoV-2 (PCR) NEGATIVE (Negative) Administered Medications Discontinued Medications Hydromorphone HCl (Hydromorphone Inj 0.5 Mg/0.5 Ml Syr) 0.5 mg IV NOW STA Stop: 06/03/21 23:21 Last Admin: 06/03/21 23:32 Dose: 0.5 mg Documented by: [id number] Sodium Chloride (Nss 1000ml) 1,000 mls @ 999 mls/hr IV .[id number] ONE Stop: 06/04/21 00:20 Last Infusion: 06/04/21 00:54 Dose: 0 mls/hr Documented by: [id number] Admin: 06/03/21 23:29 Dose: 999 mls/hr Documented by: [id number] Cefoxitin Sodium (Mefoxin) 2,000 mg in 60 mls @ 100 mls/hr IV NOW STA Stop: 06/04/21 01:45 Last Infusion: 06/04/21 02:12 Dose: 0 mls/hr Documented by: [id number] Admin: 06/04/21 01:18 Dose: 100 mls/hr Documented by: [id number] Ioversol (Optiray 320 100ml) 100 ml IV ONCE ONE Stop: 06/04/21 00:24 Last Admin: 06/04/21 00:23 Dose: 93 ml Documented by: [id number] Ondansetron HCl (Ondansetron Inj 2 Mg/Ml 2 Ml Vial) 4 mg IV NOW STA Stop: 06/03/21 23:21 Last Admin: 06/03/21 23:29 Dose: 4 mg Documented by: [id number] Discharge Plan Visit Data Chief Complaint: Abdominal Pain Stated Complaint: ABDOMINAL PAIN/NAUSEA ED Provider: Mata David Discharge Problem: Acute cholecystitis Patient Disposition: Admitted As Inpatient Discharge Instructions Interventions: ED Discharge Assessment Last Done: 06/04/21 03:18
[2021-06-03 23:30] LABS: Appearance Urine Clear (Clear); Bacteria Urine Automated 4+ (Negative); Bilirubin Urine Negative (Negative); Blood Urine 2+ (Negative); Color Urine Dark Yellow; Epithelial Cell Urine Auto >30 /lpf (0-5); Glucose Urine UA Negative (Negative); Ketones Urine Negative (Negative); Leukocyte Esterase Urine 1+ (Negative); Nitrite Urine Positive (Negative); Protein Urine Negative (Negative); RBC Urine Automated 0-4 /hpf (0-4); Specific Gravity Urine 1.018 (1.000-1.030); Urobilinogen Urine Negative (Negative)
[2021-06-03 23:38] LABS: Albumin Level 3.3 gm/dl (3.4-5.0); BUN Creatinine Ratio 13.5 (10-20); Calcium 8.5 mg/dl (8.5-10.1); Creatinine Clr Calc Pharmacy 53.7 ml/min; Est GFR (African American) 57.4 ml/min; Est GFR (Non-African American) 49.6 ml/min; Potassium 3.3 mmol/L (3.5-5.1)
[2021-06-03 23:41] LABS: Albumin Globulin Ratio 0.7 (0.9-2); Globulin 4.7 gm/dl (2.5-4.0)
[2021-06-04 00:02] LABS: Basophils # (auto) 0.03 K/uL (0-0.2); Basophils % (auto) 0.3 %; Eosinophils # (auto) 0.09 K/uL (0-0.5); Immature Granulocytes # (auto) 0.03 K/uL (0.00-0.02); Immature Granulocytes % (auto) 0.3 %; Lymphocytes # (auto) 2.16 K/uL (1.2-3.4); Lymphocytes % (auto) 24.5 %; Monocytes # (auto) 0.49 K/uL (0.11-0.59); Monocytes % (auto) 5.6 %; Neutrophils % (auto) 68.3 %
[2021-06-04] MEDS ORDERED: OPTIRAY 320 100ml IV ONE (00:23)
[2021-06-04] MEDS ORDERED: cefOXitin 2,000 MG/60 ML BAG IV STA (01:10)
[2021-06-04 01:52] LABS: Thyroid Stimulating Hormone 0.015 uIu/ml (0.300-4.500)
[2021-06-04 01:55] LABS: INR 2.8 (0.9-1.1); Partial Thromboplastin Ratio 1.7; Partial Thromboplastin Time 43.6 Seconds (21.0-31.0); Prothrombin Time 26.6 Seconds (9.0-12.0)
--- NOTE | 2021-06-04 02:12 | History & Physical Report ---
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 In the ER she is afebrile, HD stable - she is tachypneic at 27 (early sepsis?). No leukocytosis. CT Abdomen suggestive of acute cholecystitis. Abdominal exam is largely benign - nontender with deep palpation, negative Moralez's sign. -Admit to medical -Check HIDA scan -Repeat LFTs -Cefoxitin 2gm IV q 6 hours - patient with PCN allergy - received dose in ER with no issue -General surgery consultation appreciated -Zofran PRN nausea -Tiered pain management with Tylenol, Oxycodone and Morphine IV PRN (2) Hypopituitarism: Plan: Patient with panhypopituitarism following pituitary apoplexy in 1994 with subsequent pituitary surgery. She follows with Endocrinology. Last had pituitary MRI in 2009 which showed almost no pituitary tissue - unchanged from 2002. She is to have a repeat pituitary MRI this year. She is on supplementation with Synthroid and Hydrocortisone. Was previously on growth hormone supplementation as well but currently not. Not on HRT due to history of VTE. States that she has been taking her medications as prescribed - did not increase her hydrocortisone with current illness. No history of adrenal crisis. 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 INR is therapeutic at 2.8 currently. -Hold Coumadin for possible surgery -Monitor INR daily (4) Hypertension: Plan: Blood pressure elevated at 182/79. 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 She presents with complaint of bandlike upper abdominal pain that began acutely yesterday afternoon around 15:00. Pain is 5/10 in severity, constant, no relation with po intake. She has had nausea with dry heaving, poor appetite and decreased oral intake. She denies fever but has had shaking chills intermittently since yesterday morning. No additional complaints - specifically denies chest pain, palpitations, cough, SOB, diarrhea, dysuria. She did not increase her hydrocortisone with this illness. Last meal was breakfast yesterday - 09:30 ER Course: Cefoxitin, Dilaudid, Zofran, NSS Allergies Allergy/AdvReac Type Severity Reaction Status Date / Time Penicillins Allergy Mild hives Verified 06/04/21 01:54 sertraline AdvReac Intermediate acting Verified 06/04/21 01:54 funny tramadol AdvReac Intermediate Hyponatremi Verified 06/04/21 01:54 a Home Medications Medication Instructions Recorded Confirmed Type Wheeled Walker #1 ea 04/17/20 03/26/21 Rx warfarin 5 mg tablet 5 - 7.5 mg PO DAILY #100 tab 08/05/20 03/26/21 Rx cyanocobalamin (vitamin B-12) 500 2,000 mcg PO QAM #120 tab 12/24/20 03/26/21 Rx mcg tablet folic acid 400 mcg tablet 400 mcg PO QAM #30 tab 12/24/20 03/26/21 Rx thiamine HCl (vitamin B1) 100 mg 100 mg PO QAM #30 tab 12/24/20 03/26/21 Rx tablet (Vitamin B-1) multivitamin 1 tab PO DAILY #30 tab 01/16/21 06/04/21 Rx ergocalciferol (vitamin D2) 1,250 1,250 mcg PO .COMPLEX #16 cap 02/05/21 03/26/21 Rx mcg (50,000 unit) capsule (Vitamin D2) hydrocortisone 10 mg tablet 10 mg PO .COMPLEX 90 Days #300 tab 02/20/21 03/26/21 Rx potassium chloride 20 mEq 20 meq PO BID #60 tab 02/24/21 06/04/21 Rx tablet,extended release(part/cryst) ([place]) levothyroxine 137 mcg tablet 137 mcg PO QAM #30 tab 04/02/21 Rx oxybutynin chloride 5 mg 5 mg PO DAILY #90 tab 04/02/21 04/02/21 Rx tablet,extended release 24 hr calcitriol 0.25 mcg capsule 0.5 mcg PO BID 30 Days #120 cap 05/23/21 06/04/21 Rx amlodipine 5 mg tablet 10 mg PO QAM 06/04/21 06/04/21 History Past Med/Surg History Medical History Acute alteration in mental status Acute UTI Anticoagulated on Coumadin Anxiety Bilateral lower extremity edema Due water retention- cannot take diuretics due to urinary frequency Central hypothyroidism Depression DVT (deep venous thrombosis) X 2-WAS PLACED ON WARFARIN "YRS AGO"-NO ISSUES SINCE PER PT Dyslipidemia Folate deficiency Growth hormone deficiency Hyperlipidemia NO MEDS CURRENTLY Hypertension Hypokalemia Hyponatremia Hypopituitarism Idiopathic polyneuropathy IFG (impaired fasting glucose) Lumbar compression fracture Minimal endplate deformity Obesity Osteopenia 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 Follows with neurosurgery PRN. Last seen by endo January 2020. Pt denies recent issues Secondary adrenal insufficiency SOB (shortness of breath) on exertion 1 FLIGHT Thiamine deficiency Urinary, incontinence, stress female Vitamin B12 deficiency Vitamin D deficiency Surgical History History of breast biopsy LEFT-BENIGN History of cataract surgery R/L History of colonoscopy (05/31/18) Dr. Gonzalez, sigmoid diverticulosis, 4 mm sigmoid tubular adenoma polyp removed, recheck 5 years History of right hip replacement (~04/2020) History of tubal ligation Status post transsphenoidal pituitary resection 1993 [facility] Family History Father Deep vein thrombosis of lower extremity Peripheral artery disease Aunt Breast cancer Grandmother (Paternal) Coronary heart disease Grandfather (Paternal) Coronary heart disease Mother Schizophrenia Denies family history of Ovarian cancer Prostate cancer Myocardial infarction Colorectal cancer Social History Smoking Status: Never smoker Second Hand Exposure: No; Hx Alcohol Use: No Hx Substance Use: No Preferred Language: Albanian Communication Ability: Effective Visual Impairment: No Limitations Hearing Ability: Normal Road Commissioner Required: No Beliefs That Will Affect Care: None marital status: Current Living Situation: Spouse current occupational status: retired Other Information That Helps Us Care for You: No Feels Safe at Home: Yes Dental Care, Regularly: No Physical Activity Frequency: Does not Exercise Seatbelt Use: sometimes Assistive Devices: Glasses and Walker Review of Systems Review of Systems: All systems reviewed & are unremarkable except as noted in HPI & below Physical Exam Physical Exam: General: patient ill in appearance, NAD, AA&O x 4, +chills/rigors Skin: warm, dry, intact, no rashes or lesions HEENT: NC/AT, PERRL, EOMI, anicteric sclera, conjunctiva without injection, external ear normal to inspection and nontender, nares patent, dry mucus membranes, dentition intact, no oropharyngeal lesions, neck supple, trachea midline, no LAD, no thyromegaly, no JVD Heart: +S1/S2, regular, no m/r/g Lungs: equal air entry bilaterally, no rales/rhonchi/wheezes Abd: +BS, soft, NT/ND, no masses/organomegaly/ascites, negative Moralez's sign Ext: warm, 2+ pulses in UE/LE bilaterally, no clubbing/cyanosis, trace pedal edema Neuro: nonfocal, patient AA&O x 4, speech intact, no facial droop, moving all extremities on command with equal strength 5/5 Results & Data Results & Data ([facility]) Vital Signs (Past 12 Hours) Vital Signs Temp Pulse Pulse Resp BP BP Pulse Ox 06/04/21 00:55 96 H 28 H 182/79 H 95 06/03/21 23:24 37 C 74 24 146/78 H 99 06/03/21 21:17 83 20 146/74 H 98 Laboratory Results Laboratory Results WBC 8.80 K/uL (4.8-10.8) 06/03/21 23:05 RBC 3.68 M/uL (4.2-5.4) L 06/03/21 23:05 Hgb 11.5 g/dL (12.0-16.0) L 06/03/21 23:05 Hct 33.0 % (37-47) L 06/03/21 23:05 MCV 89.7 fL (80-100) 06/03/21 23:05 MCH 31.3 pg (25-34) 06/03/21 23:05 MCHC 34.8 g/dL (32-36) 06/03/21 23:05 RDW Std Deviation 44.7 fL (36.4-46.3) 06/03/21 23:05 RDW Coeff of Mckayla 13.5 % (11.5-14.5) 06/03/21 23:05 Plt Count 304 K/uL (130-400) 06/03/21 23:05 MPV 8.9 fL (7.4-10.4) 06/03/21 23:05 Immature Gran % (Auto) 0.3 % 06/03/21 23:05 Neut % (Auto) 68.3 % 06/03/21 23:05 Lymph % (Auto) 24.5 % 06/03/21 23:05 Winkler % (Auto) 5.6 % 06/03/21 23:05 Eos % (Auto) 1.0 % 06/03/21 23:05 Baso % (Auto) 0.3 % 06/03/21 23:05 Neut # (Auto) 6.00 K/uL (1.4-6.5) 06/03/21 23:05 Lymph # (Auto) 2.16 K/uL (1.2-3.4) 06/03/21 23:05 Winkler # (Auto) 0.49 K/uL (0.11-0.59) 06/03/21 23:05 Eos # (Auto) 0.09 K/uL (0-0.5) 06/03/21 23:05 Baso # (Auto) 0.03 K/uL (0-0.2) 06/03/21 23:05 Immature Gran # (Auto) 0.03 K/uL (0.00-0.02) H 06/03/21 23:05 PT 26.6 Seconds (9.0-12.0) H 06/04/21 01:35 INR 2.8 (0.9-1.1) H 06/04/21 01:35 APTT 43.6 Seconds (21.0-31.0) H 06/04/21 01:35 PTT Ratio 1.7 06/04/21 01:35 Sodium 137 mmol/L (136-145) 06/03/21 23:05 Potassium 3.3 mmol/L (3.5-5.1) L 06/03/21 23:05 Chloride 105 mmol/L (98-107) 06/03/21 23:05 Carbon Dioxide 23 mmol/L (21-32) 06/03/21 23:05 Anion Gap 9.0 (3-11) 06/03/21 23:05 BUN 15 mg/dl (7-18) 06/03/21 23:05 Creatinine 1.13 mg/dl (0.6-1.2) 06/03/21 23:05 Est Cr Clr Drug Dosing 53.7 ml/min 06/03/21 23:05 Est GFR ( Amer) 57.4 ml/min 06/03/21 23:05 Est GFR (Non-Af Amer) 49.6 ml/min 06/03/21 23:05 BUN/Creatinine Ratio 13.5 (10-20) 06/03/21 23:05 Glucose 93 mg/dl (70-99) 06/03/21 23:05 Calcium 8.5 mg/dl (8.5-10.1) 06/03/21 23:05 Total Bilirubin 1.0 mg/dl (0.2-1) 06/03/21 23:05 AST 428 U/L (15-37) H 06/03/21 23:05 ALT 133 U/L (12-78) H 06/03/21 23:05 Alkaline Phosphatase 86 U/L (45-117) 06/03/21 23:05 Total Protein 8.0 gm/dl (6.4-8.2) 06/03/21 23:05 Albumin 3.3 gm/dl (3.4-5.0) L 06/03/21 23:05 Globulin 4.7 gm/dl (2.5-4.0) H 06/03/21 23:05 Albumin/Globulin Ratio 0.7 (0.9-2) L 06/03/21 23:05 Lipase 202 U/L (73-393) 06/03/21 23:05 TSH 0.015 uIu/ml (0.300-4.500) L 06/03/21 23:05 Urine Color Dark Yellow 06/03/21 23:05 Urine Appearance Clear (Clear) 06/03/21 23:05 Urine pH 5.0 (4.5-7.5) 06/03/21 23:05 Ur Specific [place] 1.018 (1.000-1.030) 06/03/21 23:05 Urine Protein Negative (Negative) 06/03/21 23:05 Urine Glucose (UA) Negative (Negative) 06/03/21 23:05 Urine Ketones Negative (Negative) 06/03/21 23:05 Urine Blood 2+ (Negative) H 06/03/21 23:05 Urine Nitrite Positive (Negative) A 06/03/21 23:05 Urine Bilirubin Negative (Negative) 06/03/21 23:05 Urine Urobilinogen Negative (Negative) 06/03/21 23:05 Ur Leukocyte Esterase 1+ (Negative) H 06/03/21 23:05 Urine WBC (Auto) 10-30 /hpf (0-5) H 06/03/21 23:05 Urine RBC (Auto) 0-4 /hpf (0-4) 06/03/21 23:05 U Hyaline Cast (Auto) 1-5 /lpf (0-5) 06/03/21 23:05 U Epithel Cells (Auto) >30 /lpf (0-5) H 06/03/21 23:05 Urine Bacteria (Auto) 4+ (Negative) H 06/03/21 23:05 COVID-19 Eval Order Covid19 at [facility] 06/04/21 01:[address] Abdomen and Pelvis - per STAT-rad: comparison with CT abdomen pelvis 12/22/20 - Prominence of the gallbladder wall and pericholecystic haziness are concerning for acute cholecystitis. The solid organs are within normal limits. No obstruction. Diverticulosis. Worsening moderate compression fractures of L2 and L4 Code Status & VTE Plan VTE Prophylaxis Plan VTE Prophylaxis will be ordered: Yes PG Care Time/CCT Total # of Minutes Spent Total Time Spent with Patient: Total time spent is greater than 50% in coordination of care (as documented) at patient's floor/unit and/or counseling patient: Coding Level of Care Code 67526 Initial Inpt Care Lvl 3 Diagnoses Hypopituitarism E23.0 Hypertension I10 Central hypothyroidism E03.8 DVT (deep venous thrombosis) I82.409 Abdominal pain R10.9
[2021-06-04] MEDS ORDERED: ACETAMINOPHEN 325 MG TAB PO PRN (04:56)
[2021-06-04] MEDS ORDERED: oxyCODONE HCL IR 5 MG TAB (IMMEDIATE RELEASE) PO PRN ×2 (04:56)
[2021-06-04] MEDS ORDERED: MoRPHine SULFATE 4 MG/ML 1 ML CARP\\VIAL IV PRN (04:56)
[2021-06-04] MEDS ORDERED: MoRPHine SULFATE 2 MG/ML CARP IV PRN (04:56)
[2021-06-04] MEDS ORDERED: DOCUSATE SODIUM 100 MG CAP PO PRN (04:56)
[2021-06-04] MEDS: POTASSIUM CHLORIDE 20 MEQ in LACTATED RINGER'S 1,000 ML IV SCH ×2 (06:15→18:26)
[2021-06-04] MEDS: cefOXitin 2,000 MG in DEXTROSE 5% 50 ML IV SCH ×4 (06:15→23:33)
[2021-06-04] MEDS: HYDROCORTISONE SOD 50 MG in SYRINGE 0 ML IV SCH ×4 (06:15→23:33)
[2021-06-04] MEDS ORDERED: LEVOTHYROXINE SODIUM 137 MCG TABLET PO SCH (06:30)
[2021-06-04 07:15] LABS: Troponin I < 0.015 ng/ml (0-0.045)
--- NOTE | 2021-06-04 08:18 | CT Scan Report ---
ABDOMEN AND PELVIS CT WITH IV CONTRAST CT DOSE: 1535.32 mGy.cm HISTORY: Acute right upper quadrant abdominal pain with fever Epigastric, RUQ pain, Fever, vomiting TECHNIQUE: Multiaxial CT images of the abdomen and pelvis were performed following the IV administrat ion of 93 cc of Optiray, A dose lowering technique was utilized adhering to the principles of ALARA. COMPARISON STUDY: CT 12/22/2020 FINDINGS: Coronary artery calcifications. There are 2 solid nodules of the basal left lower lobe measuring up t o 5 mm on image 43 which in retrospect appear unchanged. There is no pneumatosis or pneumoperitoneum. The spleen, pancreas and adrenal glands are unremarkable. Mild gallbladder distention with wall thic kening and trace pericholecystic edema. No cholelithiasis or biliary ductal dilation identified. Unre markable liver with probable cyst of the left hepatic lobe measuring 9 mm. The liver measures within the upper limits of normal in size. Unremarkable kidneys. No hydronephrosis. Mild bladder wall thickening with partial distention. Pelvic floor relaxation with small cystocele. Unremarkable uterus and adnexa. Atherosclerosis of the aorta without aneurysm. Mildly enlarged periportal lymph nodes measure up to 11 mm, likely reactive. No bow el obstruction or bowel wall thickening. Duodenal diverticulum. Extensive colonic diverticulosis with out CT evidence of acute diverticulitis. Normal appendix. Right hip total joint arthroplasty. Degener ative changes of the spine, pelvis and left hip. Superior endplate compression deformities at L2 and L4 have progressively worsened from comparison. 3 mm retropulsion at L2 with 4 mm retropulsion at L4 is also progressed. No significant central canal stenosis. IMPRESSION: 1. Gallbladder distention with mild wall thickening and pericholecystic fluid is suspicious for acute cholecystitis in the appropriate clinical setting. 2. No bowel obstruction or bowel wall thickening. 3. Colonic diverticulosis. 4. Progressively worsened L2 and L4 compression deformities with mild retropulsion. 5. Additional findings as above. ACT 112: Negative or not required by law. The above report was generated using voice recognition software. It may contain grammatical, syntax o r spelling errors. Electronically signed by: Floyd Monte M.D. 06/04/2021 8:17 AM
[2021-06-04] MEDS: amLODIPine BESYLATE 5 MG TAB PO SCH (08:51)
[2021-06-04] MEDS: OXYBUTYNIN CHLORIDE XL 5 MG TABCR PO SCH (08:51)
--- NOTE | 2021-06-04 09:05 | Hospitalist Progress Note ---
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 In the ER she is afebrile, HD stable - No leukocytosis. CT Abdomen 06/03/21 IMPRESSION: 1. Gallbladder distention with mild wall thickening and pericholecystic fluid is suspicious for acute cholecystitis in the appropriate clinical setting. 2. No bowel obstruction or bowel wall thickening. 3. Colonic diverticulosis. 4. Progressively worsened L2 and L4 compression deformities with mild retropulsion. HIDA 06/04/21 IMPRESSION: The gallbladder is not identified during the initial 30 minutes of imaging, but filled with radiotracer following the intravenous administration of morphine. Therefore, this could represent a chronic cholecystitis versus delayed gallbladder filling. No evidence for acute cholecystitis. -Cefoxitin 2gm IV q 6 hours - patient with PCN allergy - received dose in ER with no issue -General surgery consultation assesment Chronic cholecystitis: She has no leukocytosis and no fever. She is feeling better. This more consistent with chronic cholecystitis. Her Coumadin has been held for 2 days however the INR still 2.8. In light of this we will feed her this evening. If she tolerates it well I recommend discharge tomorrow and I can see her and schedule her for cholecystectomy as an outpatient within the next 2 to 3 weeks. If she fails her diet we will continue to hold the Coumadin and perform cholecystectomy this admission. Discussed these options with her and her and they are agreeable. We did discuss details of laparoscopic cholecystectomy and associated risks. (2) Hypopituitarism: Plan: Patient with panhypopituitarism following pituitary apoplexy in 1994 with subsequent pituitary surgery. She follows with Endocrinology. Last had pituitary MRI in 2009 which showed almost no pituitary tissue - unchanged from 2003. She is to have a repeat pituitary MRI this year. She is on supplementation with Synthroid and Hydrocortisone. Was previously on growth hormone supplementation as well but currently not. Not on HRT due to history of VTE. States that she has been taking her medications as prescribed - did not increase her hydrocortisone with current illness. No history of adrenal crisis. elevated Free T3 and T4 -Will provide stress dosed Hydrocortisone - 50mg IV q 6 hours -Continue Synthroid 125mcg po daily (3) DVT (deep venous thrombosis): Plan: History of DVT x 2. Patient on Coumadin anticoagulation lifelong. INR is therapeutic at 2.8 currently. -Hold Coumadin for possible surgery -Monitor INR daily (4) Hypertension: Plan: Blood pressure elevated at 182/79. -Pain control as above -Continue Amlodipine 10mg po daily -Continue to monitor (5) Central hypothyroidism: Plan: Chronic -slight elevation may need lower dose Plan: F/E/N - LR at 100mL/hr +KCL, monitor electrolytes, NPO for now Ppx - SCDs Code - Full per discussion with patient Dispo - Admit to medical Admission and Anticipated Discharge Date Admission Date: June 04, 2021 Subjective Patient's pain is resolved, she is had no fever Review of Systems Review of Systems: Mild distress and fatigue no headache, no visual changes no speech or swallowing issues no chest pain, pressure or palpitations no shortness of breath, cough or wheezes minor abdominal pain, no nausea or vomiting, no diarrhea or constipation no dysuria, hematuria or frequency no focal joint pain or swelling no back pain, CVA tenderness or radicular pain no bruising, bleeding or rashes no focal signs of weakness or numbness or altered sensation no complaints of anxiety or depression.. Physical Exam Physical Exam: The patient appeared well nourished and normally developed. she is in no distress Vital signs as documented. Head exam is normocephalic atraumatic Neck is without JVD, thyromegaly, or carotid bruits. Lungs are clear to auscultation, no focal loss of breath sounds Cardiac exam, Rhythm is regular.. No murmurs, rubs or gallops. Abdominal exam reveals normal bowel sounds, soft mildly tender to palpation RU Q, no masses Extremities are nonedematous and both pedal pulses are present Neurologic exam is alert and oriented, no focal loss of strength or sensation Skin is without bruises or rashes Psychologically is without concerns for anxiety or depression Results & Data Results & Data ([facility]) Vital Signs (Past 12 Hours) Vital Signs Temp Pulse Pulse Resp BP BP Pulse Ox 06/04/21 07:47 97.9 F 17 131/77 96 06/04/21 03:12 173/82 H 06/04/21 02:21 73 180/80 H 98 06/04/21 02:06 83 27 H 167/101 H 99 06/04/21 00:55 96 H 28 H 182/79 H 95 06/03/21 23:24 98.6 F 74 24 146/78 H 99 06/03/21 21:17 83 20 146/74 H 98 PG Care Time/CCT Total # of Minutes Spent Total Time Spent with Patient: Total time spent is greater than 50% in coordination of care (as documented) at patient's floor/unit and/or counseling patient: Coding Level of Care Code 17590 Subseq Hosp Care Lvl 3 Diagnoses Abdominal pain R10.9 Hypopituitarism E23.0 DVT (deep venous thrombosis) I82.409 Hypertension I10 Central hypothyroidism E03.8
[2021-06-04] MEDS: POTASSIUM CHLORIDE CRTAB 20 MEQ TABCR PO SCH ×2 (09:20→20:03)
[2021-06-04] MEDS: CYANOCOBALAMIN 500 MCG TABLET (VITAMIN B-12) PO SCH (09:20)
[2021-06-04] MEDS: FOLIC ACID 400 MCG TAB PO SCH (09:20)
[2021-06-04] MEDS: THIAMINE HCL 100 MG TAB PO SCH (09:20)
[2021-06-04] MEDS: CALCITRIOL 0.25 MCG CAPSULE PO SCH ×2 (09:20→20:03)
--- NOTE | 2021-06-04 13:20 | Nuclear Medicine Report ---
NUCLEAR MEDICINE HEPATOBILIARY SCAN HISTORY: Right upper quadrant pain. ?Acute cholecystitis COMPARISON: None. TECHNIQUE: Immediately following the intravenous administration of 5.4 mCi Tc-99m Choletec, dynamic a nterior abdominal imaging was performed. FINDINGS: Uniform hepatic tracer accumulation is shown. Prompt intrahepatic biliary excretion is seen. The gall bladder was not identified during the initial 30 minutes of imaging. The common bile duct and small b owel are visualized at 30 minutes. Therefore, 2 mg of intravenous morphine was administered. An addit ional 30 minutes static images demonstrate the gallbladder. IMPRESSION: The gallbladder is not identified during the initial 30 minutes of imaging, but filled with radiotrac er following the intravenous administration of morphine. Therefore, this could represent a chronic ch olecystitis versus delayed gallbladder filling. No evidence for acute cholecystitis. ACT 112: Negative or not required by law. Electronically signed by: Rajinder Garay M.D. 06/04/2021 1:19 PM
--- NOTE | 2021-06-04 13:57 | Electrocardiogram Report ---
Test Reason : Blood Pressure : / mmHG Vent. Rate : 069 BPM Atrial Rate : 069 BPM P-R Int : 228 ms QRS Dur : 078 ms QT Int : 370 ms P-R-T Axes : 101 -20 -10 degrees QTc Int : 396 ms Sinus rhythm with 1st degree AV block Low voltage QRS Poor R wave progression, consider anterior PA vs. lead placement vs. LVH Abnormal ECG Confirmed by Dale Quinones ([id number]) on 06/04/2021 1:57:41 PM Referred By: REFERRED SELF Confirmed By:Juan Quinones
--- NOTE | 2021-06-04 14:46 | Surgery Consultation ---
Date of Consultation June 04, 2021 Assessment & Plan (1) Chronic cholecystitis: She has no leukocytosis and no fever. She is feeling better. This more consistent with chronic cholecystitis. Her Coumadin has been held for 2 days however the INR still 2.8. In light of this we will feed her this evening. If she tolerates it well I recommend discharge tomorrow and I can see her and schedule her for cholecystectomy as an outpatient within the next 2 to 3 weeks. If she fails her diet we will continue to hold the Coumadin and perform cholecystectomy this admission. Discussed these options with her and her and they are agreeable. We did discuss details of laparoscopic cholec ystectomy and associated risks. History of Present Illness Attending Physician: Liban Pastrana MD History of Present Illness 70-year-old with acute onset of upper abdominal pain and mild nausea last night after eating meal. She presented to the emergency room. She is currently feeling better. No pain or nausea. Work-up reveals an abnormal HIDA scan showing likely chronic cholecystitis. Allergies Allergy/AdvReac Type Severity Reaction Status Date / Time Penicillins Allergy Mild hives Verified 06/04/21 01:54 sertraline AdvReac Intermediate acting Verified 06/04/21 01:54 funny tramadol AdvReac Intermediate Hyponatremi Verified 06/04/21 01:54 a Home Medications Medication Instructions Recorded Confirmed Type Wheeled Walker #1 ea 04/17/20 03/26/21 Rx warfarin 5 mg tablet 5 - 7.5 mg PO DAILY #100 tab 08/05/20 06/04/21 Rx cyanocobalamin (vitamin B-12) 500 2,000 mcg PO QAM #120 tab 12/24/20 06/04/21 Rx mcg tablet folic acid 400 mcg tablet 400 mcg PO QAM #30 tab 12/24/20 06/04/21 Rx thiamine HCl (vitamin B1) 100 mg 100 mg PO QAM #30 tab 12/24/20 06/04/21 Rx tablet (Vitamin B-1) multivitamin 1 tab PO DAILY #30 tab 01/16/21 06/04/21 Rx ergocalciferol (vitamin D2) 1,250 1,250 mcg PO .COMPLEX #16 cap 02/05/21 06/04/21 Rx mcg (50,000 unit) capsule (Vitamin D2) hydrocortisone 10 mg tablet 10 mg PO .COMPLEX 90 Days #300 tab 02/20/21 06/04/21 Rx potassium chloride 20 mEq 20 meq PO BID #60 tab 02/24/21 06/04/21 Rx tablet,extended release(part/cryst) ([place]) levothyroxine 137 mcg tablet 137 mcg PO QAM #30 tab 04/02/21 06/04/21 Rx oxybutynin chloride 5 mg 5 mg PO DAILY #90 tab 04/02/21 06/04/21 Rx tablet,extended release 24 hr calcitriol 0.25 mcg capsule 0.5 mcg PO BID 30 Days #120 cap 05/23/21 06/04/21 Rx amlodipine 5 mg tablet 10 mg PO QAM 06/04/21 06/04/21 History Patient History Medical History Acute alteration in mental status Acute UTI Anticoagulated on Coumadin Anxiety Bilateral lower extremity edema Due water retention- cannot take diuretics due to urinary frequency Central hypothyroidism Depression DVT (deep venous thrombosis) X 2-WAS PLACED ON WARFARIN "YRS AGO"-NO ISSUES SINCE PER PT Dyslipidemia Folate deficiency Growth hormone deficiency Hyperlipidemia NO MEDS CURRENTLY Hypertension Hypokalemia Hyponatremia Hypopituitarism Idiopathic polyneuropathy IFG (impaired fasting glucose) Lumbar compression fracture Minimal endplate deformity Obesity Osteopenia 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 Follows with neurosurgery PRN. Last seen by endo January 2020. Pt denies recent issues Secondary adrenal insufficiency SOB (shortness of breath) on exertion 1 FLIGHT Thiamine deficiency Urinary, incontinence, stress female Vitamin B12 deficiency Vitamin D deficiency Surgical History History of breast biopsy LEFT-BENIGN History of cataract surgery R/L History of colonoscopy (05/31/18) Dr. Gonzalez, sigmoid diverticulosis, 4 mm sigmoid tubular adenoma polyp removed, recheck 5 years History of right hip replacement (~04/2020) History of tubal ligation Status post transsphenoidal pituitary [place] [facility] [place] Family History Father Deep vein thrombosis of lower extremity Peripheral artery disease Aunt Breast cancer Grandmother (Paternal) Coronary heart disease Grandfather (Paternal) Coronary heart disease Mother Schizophrenia Denies family history of Ovarian cancer Prostate cancer Myocardial infarction Colorectal cancer Social History Smoking Status: Never smoker Second Hand Exposure: No; Hx Alcohol Use: No Hx Substance Use: No Preferred Language: Marshallese Communication Ability: Effective Visual Impairment: No Limitations Hearing Ability: Normal Office Automation Technician Required: No Beliefs That Will Affect Care: None marital status: Current Living Situation: Spouse current occupational status: retired Feels Safe at Home: Yes Dental Care, Regularly: No Physical Activity Frequency: Does not Exercise Seatbelt Use: sometimes Assistive Devices: Glasses and Walker Review of Systems Review of Systems: All systems reviewed & are unremarkable except as noted in HPI & below Physical Exam Constitutional: WD/WN, vitals as above no acute distress and not ill appearing Eyes: PERRL, conjunctivae normal, anicteric sclerae EOM intact bilaterally ENMT: external ear and nose normal, oropharynx normal Ears: no hearing impairment Neck: trachea midline, no thyromegaly Respiratory: normal respiratory effort; no respiratory distress and does not use accessory muscles Cardiovascular: Rate/Rhythm: regular rate and regular rhythm Gastrointestinal (Abdomen): Soft. Nontender. No palpable abnormalities. No previous scar lines. Skin: no rashes, warm and dry Psychiatric: Orientation: alert, oriented x 3 and cooperative Results & Data ([facility]) Vital Signs (Past 12 Hours) Vital Signs Temp Pulse Resp BP Pulse Ox 06/04/21 14:26 36.5 C 67 16 109/69 95 06/04/21 07:47 36.6 C 17 131/77 96 06/04/21 03:12 173/82 H PG Care Time/CCT Total # of Minutes Spent Total Time Spent with Patient: Total time spent is greater than 50% in coordination of care (as documented) at patient's floor/unit and/or counseling patient: Coding Level of Care Code 06886 Initial Inpt Care Lvl 3 Diagnoses Chronic cholecystitis K81.1
[2021-06-05] MEDS: cefOXitin 2,000 MG in DEXTROSE 5% 50 ML IV SCH ×2 (05:14→12:10)
[2021-06-05] MEDS: HYDROCORTISONE SOD 50 MG in SYRINGE 0 ML IV SCH ×2 (05:15→12:11)
[2021-06-05] MEDS ORDERED: LEVOTHYROXINE SODIUM 125 MCG TABLET PO SCH (06:30)
[2021-06-05 06:50] LABS: Basophils # (auto) 0.01 K/uL (0-0.2); Basophils % (auto) 0.2 %; Hematocrit (blood only) 30.3 % (37-47); Hemoglobin 10.2 g/dL (12.0-16.0); Immature Granulocytes # (auto) 0.02 K/uL (0.00-0.02); Immature Granulocytes % (auto) 0.3 %; Lymphocytes # (auto) 0.66 K/uL (1.2-3.4); Lymphocytes % (auto) 10.4 %; Mean Corpuscular Hemoglobin 29.9 pg (25-34); Mean Corpuscular Hgb Conc 33.7 g/dL (32-36); Mean Corpuscular Volume 88.9 fL (80-100); Mean Platelet Volume 9.1 fL (7.4-10.4); Monocytes % (auto) 4.7 %; Neutrophils # (auto) 5.38 K/uL (1.4-6.5); Neutrophils % (auto) 84.4 %; Platelet Count 273 K/uL (130-400); RDW Coefficient of Variation 13.4 % (11.5-14.5); RDW Standard Deviation 44.2 fL (36.4-46.3); Red Blood Count 3.41 M/uL (4.2-5.4); White Blood Count 6.37 K/uL (4.8-10.8)
[2021-06-05 07:27] LABS: INR 2.2 (0.9-1.1); Prothrombin Time 21.4 Seconds (9.0-12.0)
[2021-06-05 07:29] LABS: Albumin Level 2.7 gm/dl (3.4-5.0); Bilirubin Direct 0.4 mg/dl (0-0.2); Bilirubin,Total 1.2 mg/dl (0.2-1); Calcium 8.2 mg/dl (8.5-10.1); Creatinine Clr Calc Pharmacy 36.1 ml/min; Est GFR (African American) 35.6 ml/min; Est GFR (Non-African American) 30.7 ml/min; Potassium 4.1 mmol/L (3.5-5.1)
--- NOTE | 2021-06-05 07:45 | Discharge Summary ---
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 She presents with complaint of bandlike upper abdominal pain that began acutely yesterday afternoon around 15:00. Pain is 5/10 in severity, constant, no relation with po intake. She has had nausea with dry heaving, poor appetite and decreased oral intake. She denies fever but has had shaking chills intermittently since yesterday morning. No additional complaints - specifically denies chest pain, palpitations, cough, SOB, diarrhea, dysuria. She did not increase her hydrocortisone with this illness. ER Course: Cefoxitin, Dilaudid, Zofran, NSS Principal Diagnosis chronic cholecystitis chronic anticoagulation due to recurrent DVT Discharge Exam The patient appeared well Vital signs as documented. Lungs are clear to auscultation and appear unlabored Cardiac exam, Rhythm is regular.. No murmurs, rubs or gallops. Abdominal exam reveals normal bowel sounds, soft abdominal discomfort has dissipated Extremities are nonedematous and both pedal pulses are normal. Neurologic exam is alert and oriented, no focal loss of strength or sensation Skin is without bruises or rashes Psychologically is without concerns for anxiety or depression. Discharge Data Allergies Allergy/AdvReac Type Severity Reaction Status Date / Time Penicillins Allergy Mild hives Verified 06/04/21 01:54 sertraline AdvReac Intermediate acting Verified 06/04/21 01:54 funny tramadol AdvReac Intermediate Hyponatremi Verified 06/04/21 01:54 a Consultations 06/04/21 01:14 ED Decision to Admit Stat 06/04/21 04:56 Consult General Surgery Routine Ordered Studies 06/03/21 23:20 CT abd pelvis IV con only Urgent Hospital Course (1) Abdominal pain: 70yo female with history of panhypopituitarism, prior DVT x 2 on Coumadin anticoagulation presenting with one day of bandlike upper abdominal pain, nausea and shaking chills. In the ER she is afebrile, HD stable - she is tachypneic at 28 (early sepsis?). No leukocytosis. CT Abdomen suggestive of acute cholecystitis. Abdominal exam is largely benign - nontender with deep palpation, negative Moralez's sign. -Check HIDA scan does not show uptake in her gallbladder General surgery does not feel antibiotics are required at time of discharge and did not recommend stopping anticoagulation they will coordinate this as an outpatient -General surgery consultation appreciated with diagnosis of chronic cholecystitis (2) Hypopituitarism: Patient with panhypopituitarism following pituitary apoplexy in 1994 with subsequent pituitary surgery. She follows with Endocrinology. Last had pituitary MRI in 2009 which showed almost no pituitary tissue - unchanged from 2003. She is to have a repeat pituitary MRI this year. She is on supplementation with Synthroid and Hydrocortisone. Was previously on growth hormone supplementation as well but currently not. Not on HRT due to history of VTE. States that she has been taking her medications as prescribed - did not increase her hydrocortisone with current illness. No history of adrenal crisis. -Check Free T3 and T4 mild elevation however in the face of her current illness will not reduce dose refer to outpatient repeat laboratories -Will provide stress dosed Hydrocortisone patient will return to daily dosing -Continue Synthroid 137mcg po daily (3) DVT (deep venous thrombosis): History of DVT x 2. Patient on Coumadin anticoagulation lifelong. INR is therapeutic at 2.8 currently. -General surgery will coordinate stopping Coumadin as an outpatient -Monitor INR as an outpatient (4) Hypertension: -Continue Amlodipine 10mg po daily (5) Central hypothyroidism: Chronic -Check Free T3 and T4 -Continue Synthroid at home dose Code - Full per discussion with patient Total Time Total Time Spent Total Time Spent (In Minutes): It required greater than 30 minutes to prepare this patient for discharge Discharge Plan Discharge Items Patient Disposition: Home - Self-Care Reason For Visit: ABDOMINAL PAIN Discharge Diagnosis: chronic cholecystitis chronic anticoagulation due to recurrent blood clots Activity: Per Instructions section Non-emergency contact: Primary Care Provider Call non-emergency contact if: your symptoms worsen, your pain is worsening and you have a fever Follow-up/Referrals: Jerardo Grace III, MD [Primary Care Provider] - Kenneht Mora, [Surgeon] - (Please call to schedule follow up in clinic within 1-2 weeks for scheduling of removal of your gallbladder) Diet: Low Fat Addtl Attending Provider Instructions: please eat a low fat diet and follow up with Dr Mora to had advice on your coumadin to stop before you have outpt surgery please return if you have increasing pain or fevers at home Pending Studies at Discharge: No Stand-Alone Forms: My [facility], Smoking Cessation Medications and DC Order Prescriptions: Continued warfarin 5 mg tablet 5 - 7.5 mg PO DAILY Qty: 100 RF: 5 multivitamin Tablet 1 tab PO DAILY Qty: 30 RF: 0 ergocalciferol (vitamin D2) [Vitamin D2] 1,250 mcg (50,000 unit) capsule 1,250 mcg PO .COMPLEX Qty: 16 RF: 0 hydrocortisone 10 mg tablet 10 mg PO .COMPLEX 90 Days Qty: 300 RF: 0 potassium chloride [Klor-Con M20] 20 mEq tablet,ER particles/crystals 20 meq PO BID Qty: 60 RF: 5 levothyroxine 137 mcg tablet 137 mcg PO QAM Qty: 30 RF: 1 calcitriol 0.25 mcg capsule 0.5 mcg PO BID 30 Days Qty: 120 RF: 5 (DME) Wheeled Walker Misc See Rx Instructions .ROUTE .MEDSUPPLY Qty: 1 RF: 0 oxybutynin chloride 5 mg tablet extended release 24hr 5 mg PO DAILY Qty: 90 RF: 3 cyanocobalamin (vitamin B-12) 500 mcg Tablet 2,000 mcg PO QAM Qty: 120 RF: 0 folic acid 400 mcg Tablet 400 mcg PO QAM Qty: 30 RF: 0 thiamine HCl (vitamin B1) [Vitamin B-1] 100 mg Tablet 100 mg PO QAM Qty: 30 RF: 0 amlodipine 5 mg tablet 10 mg PO QAM RF: 0 Discharge Orders: Discharge Order (Routine); Ordered 06/05/21 Ordered By: Liban Pastrana Admission Data Admit Date/Time: 06/04/21 02:06 Attending Provider: Liban Pastrana Admit Provider: Capri Schreiber Primary Care Provider: Jerardo Grace III Other Providers: Capri Schreiber ; David Torres Coding Level of Care Code D/C DAY MANAGEMENT >30 MINS Diagnoses Abdominal pain R10.9 Hypopituitarism E23.0 DVT (deep venous thrombosis) I82.409 Hypertension I10 Central hypothyroidism E03.8
[2021-06-05] MEDS: OXYBUTYNIN CHLORIDE XL 5 MG TABCR PO SCH (08:10)
[2021-06-05] MEDS: CYANOCOBALAMIN 500 MCG TABLET (VITAMIN B-12) PO SCH (08:10)
[2021-06-05] MEDS: THIAMINE HCL 100 MG TAB PO SCH (08:10)
[2021-06-05] MEDS: amLODIPine BESYLATE 5 MG TAB PO SCH (08:10)
[2021-06-05] MEDS: FOLIC ACID 400 MCG TAB PO SCH (08:11)
[2021-06-05] MEDS: CALCITRIOL 0.25 MCG CAPSULE PO SCH (08:11)
[2021-06-05] MEDS: POTASSIUM CHLORIDE CRTAB 20 MEQ TABCR PO SCH (08:12)
--- NOTE | 2021-06-05 10:16 | Surgery Progress Note ---
Date of Service June 05, 2021 Assessment & Plan (1) Chronic cholecystitis: Plan: ok for d/c, will see in clinic next week and schedule for outpatient lap jenni seen with Dr. Mora Admission and Anticipated Discharge Date Admission Date: June 04, 2021 Subjective tolerating diet, no nausea Physical Exam Gastrointestinal (Abdomen): Percussion/Palpation: abdomen soft; abdomen nontender Results & Data ([facility]) Vital Signs (Past 12 Hours) Vital Signs Temp Pulse Resp BP Pulse Ox 06/05/21 08:07 36.7 C 61 17 158/73 H 96 PG Care Time/CCT Total # of Minutes Spent Total Time Spent with Patient: Total time spent is greater than 50% in coordinat ion of care (as documented) at patient's floor/unit and/or counseling patient: Coding Level of Care Code 40660 Subseq Hosp Care Lvl 1 Diagnoses Chronic cholecystitis K81.1
== END 2021-06-05 16:29 | disposition home or self-care (01) ==
LOC: ED 21:16 → INTOOBSV 06-04 02:06 → SUATTDRO 06-04 02:06 → 3W 06-04 02:06

== ENCOUNTER 2022-02-09 10:25 | Inpatient (IN) ==
[2022-02-09] MEDS ORDERED: ERTAPENEM SODIUM 10 ML IV STA (10:44)
[2022-02-09] MEDS ORDERED: HYDROCORTISONE SOD SUCCINATE 100 MG/2 ML VIAL IV STA (10:44)
[2022-02-09] MEDS ORDERED: SODIUM CHLORIDE 0.9% 1000ML 1,000 ML IV SCH ×2 (10:45→11:45)
--- NOTE | 2022-02-09 10:56 | Emergency Department Note ---
Impression & Plan Acute confusion, Adrenal insufficiency, Fever, Acute diarrhea ED Provider Note NAME: GISELA MANZANO AGE: 71 SEX: F : 1950 ARRIVES VIA: Ambulance INFORMANT: [Patient] ED PROVIDER(S): [Caden Vasquez MD] CHIEF COMPLAINT: Confusion, fever HISTORY OF PRESENT ILLNESS: The patient is a 71-year-old female who presents to the ER with 3 days of weakness and fever. Today, she was found soaked in stool and urine. She was confused today. She had a temperature elevation as per EMS. She was given 1 g of oral Tylenol and a 250 cc saline bolus. The patient cannot really give any history. She does appear confused. The nursing staff is currently cleaning her as she was soaked in stool and urine upon arrival. As per the patient's family, this same presentation happened before when the patient had a UTI. Given the circumstances, no further history obtainable. REVIEW OF SYSTEMS: Unobtainable given the mental state. PMHx/PSHx: See Below SOCIAL HISTORY: See Below. PHYSICAL EXAM: GENERAL: Patient is in mild distress, moaning, confused. Covered in stool and urine. HEENT: No acute trauma, normocephalic atraumatic, mucous membranes moist, no nasal congestion, no scleral icterus. NECK: No stridor, no adenopathy, no meningismus, trachea is midline. LUNGS: Clear to auscultation bilaterally, no wheeze, no rhonchi, breath sounds equal. Hyperventilating. HEART: Tachycardic, regular rhythm, no obvious murmur. ABDOMEN: Soft, nontender, bowel sounds positive, no hernias, no peritonitis. Abdominal distention noted. EXTREMITIES: No cyanosis, mild bilateral pedal edema, full range of motion of all the joints without pain or difficulty, no signs for acute trauma. NEUROLOGIC: Confused, no acute motor or sensory deficits, no focal weakness. SKIN: No rash, no jaundice, no diaphoresis. DIFFERENTIAL DIAGNOSIS: Sepsis, UTI, COVID-19, influenza, adrenal insufficiency, pneumonia, metabolic abnormality, electrolyte abnormalities, cardiac sources, cellulitis, bacteremia, intracerebral event, toxicologic etiology, neurologic event, as well as other pathologies. EMERGENCY DEPARTMENT COURSE/PROCEDURES: ECG: Indication was sepsis and confusion. The ECG shows a normal sinus rhythm with a rate of 84. 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 There is no ST elevation, no PVCs. There is diffuse nonspecific ST change. The QTc is 491. Continuous Cardiac Monitoring: An order was placed for continuous cardiac monitoring. The monitor shows a rate of 87 with normal sinus rhythm. Critical Care Note: I have personally spent 54 minutes of critical care time in the direct management of this patient. This includes bedside care, interpretat ion of diagnostic studies, and testing, discussion with consultants, patient, and family members, and other required patient management activities. This 54 minutes is in excess of all separately billable procedures. MEDICAL DECISION MAKING: There is no leukocytosis or concerning anemia. There is a normal platelet count. INR is elevated at 1.6, consistent with her Coumadin use. Sodium was low at 131, CO2 was low consistent with acidosis. Creatinine was elevated at 1.51. No worrisome liver enzyme elevation. ECG shows a normal sinus rhythm, no obvious ST elevation. Cardiac enzyme testing x1 is not consistent with acute cardiac injury. Procalcitonin level was not elevated. Lactic acid level was not elevated making severe sepsis less likely. Urinalysis did not show infection. COVID, influenza and RSV testing returned negative. Chest x-ray did not show any evidence for pneumonia. Brain CT showed no acute bleed or mass- effect. Abdominal/pelvis CT did not show any evidence for colitis or diverticulitis, no bowel obstruction. There were air-fluid levels seen in the small and large bowel consistent with a gastroenteritis. The patient presented confused, febrile and tachycardic. I was concerned for sepsis. The patient received IV saline, 2 L. She was given IV hydrocortisone because of her history of adrenal insufficiency. She received IV ertapenem as empiric antibiotic coverage. Stool was obtained and sent for a stool bio fire panel. The patient does seem to be improved since treatment here in the ED. She is in need of a hospital stay. I spoke with the patient and her . I spoke with case management, the on-call hospitalist was consulted. Past Med/Surg History Medical History Acute alteration in mental status Acute UTI Anemia Anticoagulated on Coumadin Anxiety Bilateral lower extremity edema Due water retention- cannot take diuretics due to urinary frequency Central hypothyroidism Depression DVT (deep venous thrombosis) X 2-WAS PLACED ON WARFARIN "YRS AGO"-NO ISSUES SINCE PER PT Dyslipidemia Folate deficiency Growth hormone deficiency Hyperlipidemia NO MEDS CURRENTLY Hypertension Hypokalemia Hyponatremia Hypopituitarism Idiopathic polyneuropathy IFG (impaired fasting glucose) Lumbar compression fracture Minimal endplate deformity Obesity Osteopenia 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 Follows with neurosurgery PRN. Last seen by endo January 2020. Pt denies recent issues Secondary adrenal insufficiency Short-term memory loss SOB (shortness of breath) on exertion 1 FLIGHT Thiamine deficiency Urinary, incontinence, stress female Vitamin B12 deficiency Vitamin D deficiency Surgical History History of breast biopsy LEFT-BENIGN History of cataract surgery R/L History of colonoscopy (05/31/18) Dr. Gonzalez, sigmoid diverticulosis, 4 mm sigmoid tubular adenoma polyp removed, recheck 5 years History of right hip replacement (~04/2020) History of tubal ligation Status post transsphenoidal pituitary resection 1993 [facility] Family History Father Deep vein thrombosis of lower extremity Peripheral artery disease Aunt Breast cancer Grandmother (Paternal) Coronary heart disease Grandfather (Paternal) Coronary heart disease Mother Schizophrenia Denies family history of Ovarian cancer Prostate cancer Myocardial infarction Colorectal cancer Social History Smoking Status: Never smoker Second Hand Exposure: No; Hx Alcohol Use: No Hx Substance Use: No Preferred Language: Hungarian Communication Ability: Effective Visual Impairment: No Limitations Hearing Ability: Normal Integration Consultant Required: No Beliefs That Will Affect Care: None marital status: Current Living Situation: Spouse current occupational status: retired How many Children do You have: 2 Feels Safe at Home: Yes Dental Care, Regularly: No Physical Activity Frequency: Does not Exercise Seatbelt Use: sometimes Assistive Devices: Cane and Glasses Allergies Allergies Allergy/AdvReac Type Severity Reaction Status Date / Time Penicillins Allergy Mild hives Verified 02/09/22 11:20 sertraline AdvReac Intermediate acting Verified 02/09/22 11:20 funny tramadol AdvReac Intermediate Hyponatremi Verified 02/09/22 11:20 a Home Meds Home Medications Medication Instructions Recorded Confirmed amlodipine 5 mg tablet (Norvasc) 10 mg PO QDD 06/04/21 02/09/22 oxybutynin chloride 5 mg 5 mg PO QPM 06/24/21 02/09/22 tablet,extended release 24 hr (Ditropan XL) acetaminophen 500 mg tablet 1,000 mg PO Q6H PRN 02/09/22 02/09/22 (Tylenol Extra Strength) calcitriol 0.25 mcg capsule 0.25 mcg PO BID 02/09/22 02/09/22 cyanocobalamin (vitamin B-12) 500 2,000 mcg PO DAILY@1200 02/09/22 02/09/22 mcg tablet folic acid 400 mcg tablet 400 mcg PO DAILY@1200 02/09/22 02/09/22 warfarin 5 mg tablet 2.5 mg PO TUTHSA 02/09/22 02/09/22 warfarin 5 mg tablet 5 mg PO SUMOWEFR 02/09/22 02/09/22 Previous Rx's Medication Instructions Recorded Wheeled Walker #1 ea 04/17/20 thiamine HCl (vitamin B1) 100 mg 100 mg PO QAM #30 tab 12/24/20 tablet (Vitamin B-1) hydrocortisone 10 mg tablet 10 mg PO .COMPLEX 90 Days #300 tab 07/07/21 potassium chloride 20 mEq 20 meq PO BID #60 tab 09/01/21 tablet,extended release(part/cryst) (Klor-Con M) levothyroxine 137 mcg tablet 137 mcg PO QAM #30 tab 12/08/21 Results & Data (ED) Vital Signs Vital Signs - 24 hr 02/09/22 10:28 02/09/22 10:50 02/09/22 10:52 Temperature 38.1 C H Temperature Source Oral Pulse Rate 102 H 109 H Pulse Rate from SpO2 Sensor 110 H 109 H Respiratory Rate 20 28 H Blood Pressure 150/71 H 145/94 H Blood Pressure Mean 97 111 Pulse Oximetry 97 95 96 Oxygen Delivery Method Sepsis Recent Fever Within 48 Hours Yes Sepsis New/Unexplained Change in Mental Status Yes Sepsis Action Taken by Nursing Physician Notified 02/09/22 11:00 02/09/22 11:15 02/09/22 11:30 Temperature Temperature Source Pulse Rate 101 H 102 H 100 H Pulse Rate from SpO2 Sensor 103 H 102 H 99 H Respiratory Rate 29 H 19 26 H Blood Pressure 157/74 H 126/69 Blood Pressure Mean 101 88 Pulse Oximetry 95 97 97 Oxygen Delivery Method Sepsis Recent Fever Within 48 Hours Sepsis New/Unexplained Change in Mental Status Sepsis Action Taken by Nursing 02/09/22 11:45 02/09/22 11:57 02/09/22 12:00 Temperature Temperature Source Pulse Rate 87 82 Pulse Rate from SpO2 Sensor 87 82 Respiratory Rate 24 33 H Blood Pressure 141/65 H 141/71 H Blood Pressure Mean 90 94 Pulse Oximetry 95 95 Oxygen Delivery Method Room Air Sepsis Recent Fever Within 48 Hours Sepsis New/Unexplained Change in Mental Status Sepsis Action Taken by Nursing 02/09/22 12:15 02/09/22 12:47 02/09/22 13:00 Temperature Temperature Source Pulse Rate 89 83 80 Pulse Rate from SpO2 Sensor 83 81 Respiratory Rate 21 24 33 H Blood Pressure 141/63 H Blood Pressure Mean 89 Pulse Oximetry 92 96 Oxygen Delivery Method Sepsis Recent Fever Within 48 Hours Sepsis New/Unexplained Change in Mental Status Sepsis Action Taken by Nursing 02/09/22 13:15 02/09/22 13:30 02/09/22 13:45 Temperature Temperature Source Pulse Rate 80 82 84 Pulse Rate from SpO2 Sensor 81 81 83 Respiratory Rate 34 H 34 H 33 H Blood Pressure 149/63 H 148/61 H 152/62 H Blood Pressure Mean 91 90 92 Pulse Oximetry 95 95 95 Oxygen Delivery Method Sepsis Recent Fever Within 48 Hours Sepsis New/Unexplained Change in Mental Status Sepsis Action Taken by Nursing 02/09/22 14:00 Temperature Temperature Source Pulse Rate 82 Pulse Rate from SpO2 Sensor 81 Respiratory Rate 29 H Blood Pressure 144/70 H Blood Pressure Mean 94 Pulse Oximetry 91 Oxygen Delivery Method Sepsis Recent Fever Within 48 Hours Sepsis New/Unexplained Change in Mental Status Sepsis Action Taken by [facility] Medications Current Medication List: was personally reviewed by me Laboratory Data Attestation: I reviewed the patient's lab results. Result diagrams: 02/09/22 11:01 02/09/22 11:01 Lab Results 02/09/22 02/09/22 02/09/22 Range/Units 11:01 11:01 11:01 WBC 10.49 (4.8-10.8) K/uL RBC 4.22 (4.2-5.4) M/uL Hgb 12.9 (12.0-16.0) g/dL Hct 38.3 (37-47) % MCV 90.8 (80-100) fL MCH 30.6 (25-34) pg MCHC 33.7 (32-36) g/dL RDW Std Deviation 47.0 H (36.4-46.3) fL RDW Coeff of Mckayla 14.1 (11.5-14.5) % Plt Count 319 (130-400) K/uL MPV 9.4 (7.4-10.4) fL Immature Gran % (Auto) 0.9 % Neut % (Auto) 82.8 % Lymph % (Auto) 10.6 % [place] % (Auto) 5.5 % Eos % (Auto) 0.1 % Baso % (Auto) 0.1 % Neut # (Auto) 8.69 H (1.4-6.5) K/uL Lymph # (Auto) 1.11 L (1.2-3.4) K/uL [place] # (Auto) 0.58 (0.11-0.59) K/uL Eos # (Auto) 0.01 (0-0.5) K/uL Baso # (Auto) 0.01 (0-0.2) K/uL Immature Gran # (Auto) 0.09 H (0.00-0.02) K/uL PT 16.7 H (9.0-12.0) Seconds INR 1.6 H (0.9-1.1) APTT 37.3 H (21.0-31.0) Seconds PTT Ratio 1.4 Sodium (136-145) mmol/L Potassium (3.5-5.1) mmol/L Chloride (98-107) mmol/L Carbon Dioxide (21-32) mmol/L Anion Gap (3-11) BUN (6-23) mg/dl Creatinine (0.6-1.2) mg/dl Est Cr Clr Drug Dosing ml/min Est GFR ( Amer) ml/min Est GFR (Non-Af Amer) ml/min BUN/Creatinine Ratio (10-20) Glucose (70-99(Fasting)) mg/dl Lactate (0.4-2.0) mmol/L Calcium (8.5-10.1) mg/dl Magnesium (1.7-2.4) mg/dl Total Bilirubin (0.2-1.0) mg/dl AST (13-39) U/L ALT (7-52) U/L Alkaline Phosphatase (34-104) U/L Troponin I High Sens 10.5 (0-14) pg/ml Total Protein (6.0-8.3) gm/dl Albumin (3.4-5.0) gm/dl Globulin (2.5-4.0) gm/dl Albumin/Globulin Ratio (0.9-2) Procalcitonin (0-0.5) ng/ml Urine Color Urine Appearance (Clear) Urine pH (4.5-7.5) Ur Specific Beemer (1.000-1.030) Urine Protein (Negative) Urine Glucose (UA) (Negative) Urine Ketones (Negative) Urine Blood (Negative) Urine Nitrite (Negative) Urine Bilirubin (Negative) Urine Urobilinogen (Negative) Ur Leukocyte Esterase (Negative) Urine WBC (Auto) (0-5) /hpf Urine RBC (Auto) (0-4) /hpf U Hyaline Cast (Auto) (0-5) /lpf U Epithel Cells (Auto) (0-5) /lpf Urine Bacteria (Auto) (Negative) SARS-CoV-2 (PCR) (Negative) Influenza Type A (PCR) (Neg) Influenza Type B (PCR) (Neg) RSV (RT-PCR) (Neg) 02/09/22 02/09/22 02/09/22 Range/Units 11:01 11:01 11:01 WBC (4.8-10.8) K/uL RBC (4.2-5.4) M/uL Hgb (12.0-16.0) g/dL Hct (37-47) % MCV (80-100) fL MCH (25-34) pg MCHC (32-36) g/dL RDW Std Deviation (36.4-46.3) fL RDW Coeff of Mckayla (11.5-14.5) % Plt Count (130-400) K/uL MPV (7.4-10.4) fL Immature Gran % (Auto) % Neut % (Auto) % Lymph % (Auto) % [place] % (Auto) % Eos % (Auto) % Baso % (Auto) % Neut # (Auto) (1.4-6.5) K/uL Lymph # (Auto) (1.2-3.4) K/uL [place] # (Auto) (0.11-0.59) K/uL Eos # (Auto) (0-0.5) K/uL Baso # (Auto) (0-0.2) K/uL Immature Gran # (Auto) (0.00-0.02) K/uL PT (9.0-12.0) Seconds INR (0.9-1.1) APTT (21.0-31.0) Seconds PTT Ratio Sodium 131 L (136-145) mmol/L Potassium 3.9 (3.5-5.1) mmol/L Chloride 103 (98-107) mmol/L Carbon Dioxide 16 L (21-32) mmol/L Anion Gap 12 H (3-11) BUN 27 H (6-23) mg/dl Creatinine 1.51 H (0.6-1.2) mg/dl Est Cr Clr Drug Dosing 39.4 ml/min Est GFR ( Amer) 40.2 ml/min Est GFR (Non-Af Amer) 34.7 ml/min BUN/Creatinine Ratio 17.9 (10-20) Glucose 99 (70-99(Fasting)) mg/dl Lactate 1.1 (0.4-2.0) mmol/L Calcium 8.3 L (8.5-10.1) mg/dl Magnesium 1.7 (1.7-2.4) mg/dl Total Bilirubin 1.0 (0.2-1.0) mg/dl AST 19 (13-39) U/L ALT 7 (7-52) U/L Alkaline Phosphatase 58 (34-104) U/L Troponin I High Sens (0-14) pg/ml Total Protein 7.9 (6.0-8.3) gm/dl Albumin 3.8 (3.4-5.0) gm/dl Globulin 4.1 H (2.5-4.0) gm/dl Albumin/Globulin Ratio 0.9 (0.9-2) Procalcitonin 0.36 (0-0.5) ng/ml Urine Color Urine Appearance (Clear) Urine pH (4.5-7.5) Ur Specific Beemer (1.000-1.030) Urine Protein (Negative) Urine Glucose (UA) (Negative) Urine Ketones (Negative) Urine Blood (Negative) Urine Nitrite (Negative) Urine Bilirubin (Negative) Urine Urobilinogen (Negative) Ur Leukocyte Esterase (Negative) Urine WBC (Auto) (0-5) /hpf Urine RBC (Auto) (0-4) /hpf U Hyaline Cast (Auto) (0-5) /lpf U Epithel Cells (Auto) (0-5) /lpf Urine Bacteria (Auto) (Negative) SARS-CoV-2 (PCR) (Negative) Influenza Type A (PCR) (Neg) Influenza Type B (PCR) (Neg) RSV (RT-PCR) (Neg) 02/09/22 02/09/22 Range/Units 11:30 11:48 WBC (4.8-10.8) K/uL RBC (4.2-5.4) M/uL Hgb (12.0-16.0) g/dL Hct (37-47) % MCV (80-100) fL MCH (25-34) pg MCHC (32-36) g/dL RDW Std Deviation (36.4-46.3) fL RDW Coeff of Mckayla (11.5-14.5) % Plt Count (130-400) K/uL MPV (7.4-10.4) fL Immature Gran % (Auto) % Neut % (Auto) % Lymph % (Auto) % [place] % (Auto) % Eos % (Auto) % Baso % (Auto) % Neut # (Auto) (1.4-6.5) K/uL Lymph # (Auto) (1.2-3.4) K/uL [place] # (Auto) (0.11-0.59) K/uL Eos # (Auto) (0-0.5) K/uL Baso # (Auto) (0-0.2) K/uL Immature Gran # (Auto) (0.00-0.02) K/uL PT (9.0-12.0) Seconds INR (0.9-1.1) APTT (21.0-31.0) Seconds PTT Ratio Sodium (136-145) mmol/L Potassium (3.5-5.1) mmol/L Chloride (98-107) mmol/L Carbon Dioxide (21-32) mmol/L Anion Gap (3-11) BUN (6-23) mg/dl Creatinine (0.6-1.2) mg/dl Est Cr Clr Drug Dosing ml/min Est GFR ( Amer) ml/min Est GFR (Non-Af Amer) ml/min BUN/Creatinine Ratio (10-20) Glucose (70-99(Fasting)) mg/dl Lactate (0.4-2.0) mmol/L Calcium (8.5-10.1) mg/dl Magnesium (1.7-2.4) mg/dl Total Bilirubin (0.2-1.0) mg/dl AST (13-39) U/L ALT (7-52) U/L Alkaline Phosphatase (34-104) U/L Troponin I High Sens (0-14) pg/ml Total Protein (6.0-8.3) gm/dl Albumin (3.4-5.0) gm/dl Globulin (2.5-4.0) gm/dl Albumin/Globulin Ratio (0.9-2) Procalcitonin (0-0.5) ng/ml Urine Color Yellow Urine Appearance Clear (Clear) Urine pH 5.0 (4.5-7.5) Ur Specific Beemer 1.020 (1.000-1.030) Urine Protein Trace H (Negative) Urine Glucose (UA) Negative (Negative) Urine Ketones Trace H (Negative) Urine Blood 3+ H (Negative) Urine Nitrite Negative (Negative) Urine Bilirubin Negative (Negative) Urine Urobilinogen Negative (Negative) Ur Leukocyte Esterase Trace H (Negative) Urine WBC (Auto) 1-5 (0-5) /hpf Urine RBC (Auto) 10-30 H (0-4) /hpf U Hyaline Cast (Auto) 1-5 (0-5) /lpf U Epithel Cells (Auto) 5-10 H (0-5) /lpf Urine Bacteria (Auto) Negative (Negative) SARS-CoV-2 (PCR) NEGATIVE (Negative) Influenza Type A (PCR) Negative (Neg) Influenza Type B (PCR) Negative (Neg) RSV (RT-PCR) Negative (Neg) Administered Medications Discontinued Medications Hydrocortisone Sodium Succinate (Hydrocortisone Sod Succinate 100 Mg/2 Ml Vial) 100 mg IV NOW STA Stop: 02/09/22 10:45 Last Admin: 02/09/22 11:44 Dose: 100 mg Documented by: [id number] Sodium Chloride (Nss 1000ml) 1,000 mls @ 999 mls/hr IV .Q1H1M MADDY Stop: 02/09/22 11:44 Last Infusion: 02/09/22 12:22 Dose: 0 mls/hr Documented by: [id number] Admin: 02/09/22 11:05 Dose: 999 mls/hr Documented by: [id number] Sodium Chloride (Nss 1000ml) 1,000 mls @ 999 mls/hr IV .Q1H1M MADDY Stop: 02/09/22 12:45 Last Infusion: 02/09/22 12:21 Dose: 0 mls/hr Documented by: [id number] Admin: 02/09/22 11:05 Dose: 999 mls/hr Documented by: [id number] Ertapenem (Invanz) 10 mls @ 2 mls/min IV NOW STA Stop: 02/09/22 10:48 Last Admin: 02/09/22 11:41 Dose: 2 mls/min Documented by: [id number] Imaging Data Radiologist's Impression: Chest X-Ray 02/09/22 10:44 XR chest 1V portable CLINICAL HISTORY: SEPSIS TECHNIQUE: Single frontal radiograph of the chest was obtained. Comparison: Comparison is made to chest radiograph 12/20/2020 FINDINGS: No lines and tubes are seen. The cardiomediastinal silhouette is normal. Prominence and cephalization of the vasculature is seen. No evidence of pleural effusion or pneumothorax. IMPRESSION: Mild pulmonary edema. ACT 112: Negative or not required by law. Electronically signed by: Art Burks M.D. 02/09/2022 12:15 PM Abdomen/Pelvis CT 02/09/22 11:[address] WITHOUT CONTRAST CT DOSE: 1017.85 mGycm HISTORY: Generalized abdominal pain. poss colitis, fever, diarrhea TECHNIQUE: Multiaxial CT images of the abdomen and pelvis were performed without contrast. A dose lowering technique was utilized adhering to the principles of ALARA. COMPARISON STUDY: Abdomen and pelvis CT 06/04/2021. FINDINGS: Stable 4 mm left lower lobe nodule on image 59. Mild motion artifact. No pneumoperitoneum. No pneumatosis. There is a right total hip arthroplasty again noted. Old L2 and L4 compression deformities remain unchanged. Cholecystectomy. Mild hepatic steatosis. Stable 9 mm hypodense lesion within the left hepatic dome. This favors a cyst. The unenhanced spleen, adrenal glands, and pancreas are unremarkable. Mild bilateral perinephric edema which is likely chronic. No renal or ureteral stones. No hydronephrosis. There is a 2 cm diverticulum at the third portion of the duodenum. Mild calcified plaque within the normal caliber abdominal aorta. No retroperitoneal lymphadenopathy. Mild central mesenteric infiltration suggestive of a panniculitis. This is of doubtful clinical significance. The pelvic structures are suboptimally assessed due to the metallic artifact from the right hip prosthesis. However, the bladder, uterus, bilateral adnexa appear within normal limits. Colonic div erticulosis. No evidence for acute diverticulitis. No bowel wall thickening or obstruction. Fluid-filled nondilated large and small bowel. Normal appendix. IMPRESSION: 1. Fluid-filled nondilated loops of large and small bowel seen throughout the abdomen. This favors a gastroenteritis/diarrheal illness. 2. No evidence for bowel obstruction. 3. Cholelithiasis. 4. Normal appendix. 5. Colonic diverticulosis. No evidence for acute diverticulitis. 6. Hepatic steatosis. 7. Additional findings as described above. ACT 112: Negative or not required by law. Electronically signed by: Rajinder Garay M.D. 02/09/2022 1:[address] 02/09/22 11:[address] DOSE: 788.63 mGycm HISTORY: confusion TECHNIQUE: Multiaxial CT images of the head were performed without the use of intravenous contrast. Automated exposure control was utilized for this study. A dose lowering technique was utilized adhering to the principles of ALARA. Comparison: Head CT 12/20/2020. Findings: The paranasal sinuses and mastoid air cells are clear. The calvarium and skull base are intact. There is no mass, hematoma, midline shift, acute infarct. White matter hypodensity is nonspecific but suggestive of microvascular ischemic change. The ventricles and sulci demonstrate mild age-related involutional changes. 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 Impression: No significant change compared to the prior study. No acute intracranial abnormality. ACT 112: Negative or not required by law. Electronically signed by: Rajinder Garay M.D. 02/09/2022 12:55 PM Discharge Plan Visit Data Chief Complaint: Altered Mental Status ED Provider: Caden Vasquez Discharge Problem: Acute confusion, Adrenal insufficiency, Fever, Acute diarrhea Patient Disposition: Admitted As Inpatient Condition: Fair Forms Stand Alone Forms: [employer] Prescriptions Prescriptions: No Action hydrocortisone 10 mg tablet 10 mg PO .COMPLEX 90 Days Qty: 300 RF: 3 potassium chloride [Klor-Con M20] 20 mEq tablet,ER particles/crystals 20 meq PO BID Qty: 60 RF: 5 levothyroxine 137 mcg tablet 137 mcg PO QAM Qty: 30 RF: 1 (DME) Wheeled Walker Misc See Rx Instructions .ROUTE .MEDSUPPLY Qty: 1 RF: 0 thiamine HCl (vitamin B1) [Vitamin B-1] 100 mg Tablet 100 mg PO QAM Qty: 30 RF: 0 amlodipine [Norvasc] 5 mg tablet 10 mg PO QDD RF: 0 oxybutynin chloride [Ditropan XL] 5 mg tablet extended release 24hr 5 mg PO QPM RF: 0 acetaminophen [Tylenol Extra Strength] 500 mg Tablet 1,000 mg PO Q6H PRN (Reason: Pain) RF: 0 warfarin 5 mg tablet 2.5 mg PO TUTHSA RF: 0 folic acid 400 mcg tablet 400 mcg PO DAILY@1200 RF: 0 cyanocobalamin (vitamin B-12) 500 mcg tablet 2,000 mcg PO DAILY@1200 RF: 0 warfarin 5 mg tablet 5 mg PO SUMOWEFR RF: 0 calcitriol 0.25 mcg capsule 0.25 mcg PO BID RF: 0 Referrals Referrals: Jerardo Grace III, MD [Physician] -
[2022-02-09 11:14] LABS: Basophils # (auto) 0.01 K/uL (0-0.2); Basophils % (auto) 0.1 %; Eosinophils # (auto) 0.01 K/uL (0-0.5); Eosinophils % (auto) 0.1 %; Hematocrit (blood only) 38.3 % (37-47); Hemoglobin 12.9 g/dL (12.0-16.0); Immature Granulocytes # (auto) 0.09 K/uL (0.00-0.02); Immature Granulocytes % (auto) 0.9 %; Lymphocytes # (auto) 1.11 K/uL (1.2-3.4); Lymphocytes % (auto) 10.6 %; Mean Corpuscular Hemoglobin 30.6 pg (25-34); Mean Corpuscular Hgb Conc 33.7 g/dL (32-36); Mean Corpuscular Volume 90.8 fL (80-100); Mean Platelet Volume 9.4 fL (7.4-10.4); Monocytes # (auto) 0.58 K/uL (0.11-0.59); Monocytes % (auto) 5.5 %; Neutrophils # (auto) 8.69 K/uL (1.4-6.5); Neutrophils % (auto) 82.8 %; Platelet Count 319 K/uL (130-400); RDW Coefficient of Variation 14.1 % (11.5-14.5); Red Blood Count 4.22 M/uL (4.2-5.4); White Blood Count 10.49 K/uL (4.8-10.8)
[2022-02-09 11:42] LABS: Albumin Globulin Ratio 0.9 (0.9-2); Albumin Level 3.8 gm/dl (3.4-5.0); BUN Creatinine Ratio 17.9 (10-20); Calcium 8.3 mg/dl (8.5-10.1); Creatinine Clr Calc Pharmacy 39.4 ml/min; Est GFR (African American) 40.2 ml/min; Est GFR (Non-African American) 34.7 ml/min; Globulin 4.1 gm/dl (2.5-4.0); Magnesium 1.7 mg/dl (1.7-2.4); Potassium 3.9 mmol/L (3.5-5.1); Total Protein 7.9 gm/dl (6.0-8.3)
[2022-02-09 11:44] LABS: INR 1.6 (0.9-1.1); Partial Thromboplastin Ratio 1.4; Partial Thromboplastin Time 37.3 Seconds (21.0-31.0); Prothrombin Time 16.7 Seconds (9.0-12.0)
[2022-02-09 12:07] LABS: Appearance Urine Clear (Clear); Bacteria Urine Automated Negative (Negative); Bilirubin Urine Negative (Negative); Blood Urine 3+ (Negative); Color Urine Yellow; Glucose Urine UA Negative (Negative); Ketones Urine Trace (Negative); Leukocyte Esterase Urine Trace (Negative); Nitrite Urine Negative (Negative); Protein Urine Trace (Negative); Urobilinogen Urine Negative (Negative)
--- NOTE | 2022-02-09 12:16 | XRay Report ---
XR chest 1V portable CLINICAL HISTORY: SEPSIS TECHNIQUE: Single frontal radiograph of the chest was obtained. Comparison: Comparison is made to chest radiograph 12/20/2020 FINDINGS: No lines and tubes are seen. The cardiomediastinal silhouette is normal. Prominence and cephalization of the vasculature is seen. No evidence of pleural effusion or pneumothorax. IMPRESSION: Mild pulmonary edema. ACT 112: Negative or not required by law. Electronically signed by: Art Burks M.D. 02/09/2022 12:15 PM
[2022-02-09 12:39] LABS: Influenza A virus by PCR Negative (Neg); Influenza B virus by PCR Negative (Neg); RSV by PCR Negative (Neg); SARS CoV2 RNA(COVID-19) InHosp NEGATIVE (Negative)
--- NOTE | 2022-02-09 12:56 | CT Scan Report ---
HEAD CT NONCONTRAST CT DOSE: 788.63 mGycm HISTORY: confusion TECHNIQUE: Multiaxial CT images of the head were performed without the use of intravenous contrast. A utomated exposure control was utilized for this study. A dose lowering technique was utilized adheri ng to the principles of ALARA. Comparison: Head CT 12/20/2020. Findings: The paranasal sinuses and mastoid air cells are clear. The calvarium and skull base are int act. There is no mass, hematoma, midline shift, acute infarct. White matter hypodensity is nonspecifi c but suggestive of microvascular ischemic change. The ventricles and sulci demonstrate mild age-rela mateusz involutional changes. No change in the focal bifrontal encephalomalacia consistent with an old in farct/injury. Impression: No significant change compared to the prior study. No acute intracranial abnormality. ACT 112: Negative or not required by law. Electronically signed by: Rajinder Garay M.D. 02/09/2022 12:55 PM
--- NOTE | 2022-02-09 13:18 | CT Scan Report ---
ABDOMEN AND PELVIS CT WITHOUT CONTRAST CT DOSE: 1017.85 mGycm HISTORY: Generalized abdominal pain. poss colitis, fever, diarrhea TECHNIQUE: Multiaxial CT images of the abdomen and pelvis were performed without contrast. A dose lo wering technique was utilized adhering to the principles of ALARA. COMPARISON STUDY: Abdomen and pelvis CT 06/04/2021. FINDINGS: Stable 4 mm left lower lobe nodule on image 59. Mild motion artifact. No pneumoperitoneum. No pneumatosis. There is a right total hip arthroplasty again noted. Old L2 and L4 compression deform ities remain unchanged. Cholecystectomy. Mild hepatic steatosis. Stable 9 mm hypodense lesion within the left hepatic dome. This favors a cyst. The unenhanced spleen, adrenal glands, and pancreas are un remarkable. Mild bilateral perinephric edema which is likely chronic. No renal or ureteral stones. No hydronephrosis. There is a 2 cm diverticulum at the third portion of the duodenum. Mild calcified pl aque within the normal caliber abdominal aorta. No retroperitoneal lymphadenopathy. Mild central mese nteric infiltration suggestive of a panniculitis. This is of doubtful clinical significance. The pelv ic structures are suboptimally assessed due to the metallic artifact from the right hip prosthesis. H owever, the bladder, uterus, bilateral adnexa appear within normal limits. Colonic diverticulosis. No evidence for acute diverticulitis. No bowel wall thickening or obstruction. Fluid-filled nondilated large and small bowel. Normal appendix. IMPRESSION: 1. Fluid-filled nondilated loops of large and small bowel seen throughout the abdomen. This favors a gastroenteritis/diarrheal illness. 2. No evidence for bowel obstruction. 3. Cholelithiasis. 4. Normal appendix. 5. Colonic diverticulosis. No evidence for acute diverticulitis. 6. Hepatic steatosis. 7. Additional findings as described above. ACT 112: Negative or not required by law. Electronically signed by: Rajinder Garay M.D. 02/09/2022 1:16 PM
--- NOTE | 2022-02-09 14:19 | Electrocardiogram Report ---
Test Reason : Blood Pressure : / mmHG Vent. Rate : 084 BPM Atrial Rate : 084 BPM P-R Int : 202 ms QRS Dur : 074 ms QT Int : 416 ms P-R-T Axes : 012 -31 -39 degrees QTc Int : 491 ms Normal sinus rhythm Left axis deviation Low voltage QRS Poor R wave progression, consider anterior PR vs. lead placement vs. LVH Nonspecific ST abnormality Abnormal ECG Confirmed by Dale Quinones ([id number]) on 02/09/2022 2:18:25 PM Referred By: REFERRED SELF Confirmed By:Juan Quinones
[2022-02-09] MEDS ORDERED: hydrALAZINE HCL 20 MG/ML VIAL IV PRN (14:21)
--- NOTE | 2022-02-09 14:23 | History & Physical Report ---
Date of Service February 09, 2022 Assessment & Plan (1) Gastroenteritis: Plan: Await stool studies, stool PCR sent Received ertapenem 1 g IV from the ED, await further antibiotics until results of studies Maintain on IV fluids, NS at 80 mils per hour Acetaminophen 1 g IV every 8 hours as needed mild pain or fever (2) Central hypothyroidism: Plan: Placed on IV supplementation of levothyroxine due to panhypopituitarism status (3) Secondary adrenal insufficiency: Plan: Hold oral Cortef Hydrocortisone 100 mg IV every 8 hours (4) Hypertension: Plan: Hold amlodipine while n.p.o. Hydralazine 10 mg IV every 4 hours. Systolic blood pressure greater than 160 (5) Anticoagulated on Coumadin: Plan: History DVT- INR 1.6 today on Coumadin, holding Coumadin today NPO status Placed on Lovenox 1 mg/kg subcu every 12 hours (6) Acute kidney injury: Plan: Creatinine 1.51 upon admission, with base 1.13 IV fluids as noted, repeat laboratories in a.m. (7) Vitamin D deficiency: Plan: Resume calcitriol 0.25 mcg p.o. twice daily when able to take p.o. (8) Thiamine deficiency: Plan: Resume thiamine 100 mg p.o. daily when able to take p.o. (9) Folate deficiency: Plan: Resume folic acid 40 mcg daily when able to take p.o. (10) Vitamin B12 deficiency: (11) Mixed stress and urge urinary incontinence: Plan: Resume oxybutynin chloride when able to take p.o. (12) Idiopathic polyneuropathy: History of Present Illness Chief Complaint: The patient is nonresponsive, and her provides HPI and ROS information. reports that the patient began develop nausea vomiting and loose stools around 2:00 yesterday afternoon, and by the evening time became more lethargic and required significantly more help with ADLs. Due to worsening symptoms today, she was brought to the emergency department for assessment. 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 Patient was noted to have a temperature by EMS. Upon arrival to the ED, patient was lethargic and unresponsive. She was given 1 g of oral Tylenol, a 250 cc normal saline bolus, and stress dosing hydrocortisone 100 mg IV x1 Allergies Allergy/AdvReac Type Severity Reaction Status Date / Time Penicillins Allergy Mild hives Verified 02/09/22 11:20 sertraline AdvReac Intermediate acting Verified 02/09/22 11:20 funny tramadol AdvReac Intermediate Hyponatremi Verified 02/09/22 11:20 a Home Medications Medication Instructions Recorded Confirmed Type Wheeled Walker #1 ea 04/17/20 07/16/21 Rx thiamine HCl (vitamin B1) 100 mg 100 mg PO QAM #30 tab 12/24/20 02/09/22 Rx tablet (Vitamin B-1) amlodipine 5 mg tablet (Norvasc) 10 mg PO QDD 06/04/21 02/09/22 History oxybutynin chloride 5 mg 5 mg PO QPM 06/24/21 02/09/22 History tablet,extended release 24 hr (Ditropan XL) hydrocortisone 10 mg tablet 10 mg PO .COMPLEX 90 Days #300 tab 07/07/21 02/09/22 Rx potassium chloride 20 mEq 20 meq PO BID #60 tab 09/01/21 02/09/22 Rx tablet,extended release(part/cryst) (Klor-Con M) levothyroxine 137 mcg tablet 137 mcg PO QAM #30 tab 12/08/21 02/09/22 Rx acetaminophen 500 mg tablet 1,000 mg PO Q6H PRN 02/09/22 02/09/22 History (Tylenol Extra Strength) calcitriol 0.25 mcg capsule 0.25 mcg PO BID 02/09/22 02/09/22 History cyanocobalamin (vitamin B-12) 500 2,000 mcg PO DAILY@1200 02/09/22 02/09/22 History mcg tablet folic acid 400 mcg tablet 400 mcg PO DAILY@1200 02/09/22 02/09/22 History warfarin 5 mg tablet 2.5 mg PO TUTHSA 02/09/22 02/09/22 History warfarin 5 mg tablet 5 mg PO SUMOWEFR 02/09/22 02/09/22 History Past Med/Surg History Medical History (Updated 02/09/22 @ 14:22 by Rodrigo Murphy MD) Acute alteration in mental status Acute UTI Anemia Anticoagulated on Coumadin Anxiety Bilateral lower extremity edema Due water retention- cannot take diuretics due to urinary frequency Central hypothyroidism Depression DVT (deep venous thrombosis) X 2-WAS PLACED ON WARFARIN "YRS AGO"-NO ISSUES SINCE PER PT Dyslipidemia Folate deficiency Growth hormone deficiency Hyperlipidemia NO MEDS CURRENTLY Hypertension Hypokalemia Hyponatremia Hypopituitarism Idiopathic polyneuropathy IFG (impaired fasting glucose) Lumbar compression fracture Minimal endplate deformity Obesity Osteopenia 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 Follows with neurosurgery PRN. Last seen by endo January 2020. Pt denies recent issues Secondary adrenal insufficiency Short-term memory loss SOB (shortness of breath) on exertion 1 FLIGHT Thiamine deficiency Urinary, incontinence, stress female Vitamin B12 deficiency Vitamin D deficiency Surgical History History of breast biopsy LEFT-BENIGN History of cataract surgery R/L History of colonoscopy (05/31/18) Dr. Gonzalez, sigmoid diverticulosis, 4 mm sigmoid tubular adenoma polyp removed, recheck 5 years History of right hip replacement (~04/2020) History of tubal ligation Status post transsphenoidal pituitary resection 1993 C/RADIATION Family History Father Deep vein thrombosis of lower extremity Peripheral artery disease Aunt Breast cancer Grandmother (Paternal) Coronary heart disease Grandfather (Paternal) Coronary heart disease Mother Schizophrenia Denies family history of Ovarian cancer Prostate cancer Myocardial infarction Colorectal cancer Social History Smoking Status: Never smoker Second Hand Exposure: No; Hx Alcohol Use: No Hx Substance Use: No Preferred Language: Setswana Communication Ability: Effective Visual Impairment: No Limitations Hearing Ability: Normal Clerical Transcriber Required: No Beliefs That Will Affect Care: None marital status: Current Living Situation: Spouse current occupational status: retired How many Children do You have: 2 Feels Safe at Home: Yes Dental Care, Regularly: No Physical Activity Frequency: Does not Exercise Seatbelt Use: sometimes Assistive Devices: Cane and Glasses Review of Systems Review of Systems: Review of systems as per , as patient is lethargic and unable to provide information. Physical Exam Physical Exam: The patient is lethargic and unresponsive, normocephalic and atraumatic, lying in bed and in no acute distress. HEENT--PERRL, EOMI, mucous membranes and oropharynx dry. Neck--supple. No JVD. No bruits. Thyroid normal, trachea midline, no adenopathy. Heart--normal S1 and S2. No murmurs, rubs or gallops. Lungs--clear bilaterally, no respiratory distress, no accessory muscle use Abdomen--hyperactive bowel sounds and soft. Nontender. Nondistended. Obese Extremities--no cyanosis or clubbing. No edema. Dermatologic--normal skin turgor, normal color, no abnormal lymph nodes, no rash. Neurologic--cranial nerves II through XII grossly intact. Rheumatologic-limited exam Psychiatric--lethargic Results & Data Results & Data ([facility]) Vital Signs (Past 12 Hours) Vital Signs Temp Pulse Resp BP Pulse Ox 02/09/22 14:00 82 29 H 144/70 H 91 02/09/22 13:45 84 33 H 152/62 H 95 02/09/22 13:30 82 34 H 148/61 H 95 02/09/22 13:15 80 34 H 149/63 H 95 02/09/22 13:00 80 33 H 141/63 H 96 02/09/22 12:47 83 24 92 02/09/22 12:15 89 21 02/09/22 12:00 82 33 H 141/71 H 95 02/09/22 11:45 87 24 141/65 H 95 02/09/22 11:30 100 H 26 H 126/69 97 02/09/22 11:15 102 H 19 157/74 H 97 02/09/22 11:00 101 H 29 H 95 02/09/22 10:52 109 H 28 H 145/94 H 96 02/09/22 10:50 95 02/09/22 10:28 38.1 C H 102 H 20 150/71 H 97 Laboratory Results Laboratory Results WBC 10.49 K/uL (4.8-10.8) 02/09/22 11:01 RBC 4.22 M/uL (4.2-5.4) 02/09/22 11:01 Hgb 12.9 g/dL (12.0-16.0) 02/09/22 11:01 Hct 38.3 % (37-47) 02/09/22 11:01 MCV 90.8 fL (80-100) 02/09/22 11:01 MCH 30.6 pg (25-34) 02/09/22 11:01 MCHC 33.7 g/dL (32-36) 02/09/22 11:01 RDW Std Deviation 47.0 fL (36.4-46.3) H 02/09/22 11:01 RDW Coeff of Mckayla 14.1 % (11.5-14.5) 02/09/22 11:01 Plt Count 319 K/uL (130-400) 02/09/22 11:01 MPV 9.4 fL (7.4-10.4) 02/09/22 11:01 Immature Gran % (Auto) 0.9 % 02/09/22 11:01 Neut % (Auto) 82.8 % 02/09/22 11:01 Lymph % (Auto) 10.6 % 02/09/22 11:01 [place] % (Auto) 5.5 % 02/09/22 11:01 Eos % (Auto) 0.1 % 02/09/22 11:01 Baso % (Auto) 0.1 % 02/09/22 11:01 Neut # (Auto) 8.69 K/uL (1.4-6.5) H 02/09/22 11:01 Lymph # (Auto) 1.11 K/uL (1.2-3.4) L 02/09/22 11:01 [place] # (Auto) 0.58 K/uL (0.11-0.59) 02/09/22 11:01 Eos # (Auto) 0.01 K/uL (0-0.5) 02/09/22 11:01 Baso # (Auto) 0.01 K/uL (0-0.2) 02/09/22 11:01 Immature Gran # (Auto) 0.09 K/uL (0.00-0.02) H 02/09/22 11:01 PT 16.7 Seconds (9.0-12.0) H 02/09/22 11:01 INR 1.6 (0.9-1.1) H 02/09/22 11:01 APTT 37.3 Seconds (21.0-31.0) H 02/09/22 11:01 PTT Ratio 1.4 02/09/22 11:01 Sodium 131 mmol/L (136-145) L 02/09/22 11:01 Potassium 3.9 mmol/L (3.5-5.1) 02/09/22 11:01 Chloride 103 mmol/L (98-107) 02/09/22 11:01 Carbon Dioxide 16 mmol/L (21-32) L 02/09/22 11:01 Anion Gap 12 (3-11) H 02/09/22 11:01 BUN 27 mg/dl (6-23) H 02/09/22 11:01 Creatinine 1.51 mg/dl (0.6-1.2) H 02/09/22 11:01 Est Cr Clr Drug Dosing 39.4 ml/min 02/09/22 11:01 Est GFR ( Amer) 40.2 ml/min 02/09/22 11:01 Est GFR (Non-Af Amer) 34.7 ml/min 02/09/22 11:01 BUN/Creatinine Ratio 17.9 (10-20) 02/09/22 11:01 Glucose 99 mg/dl (70-99(Fasting)) 02/09/22 11:01 Lactate 1.1 mmol/L (0.4-2.0) 02/09/22 11:01 Calcium 8.3 mg/dl (8.5-10.1) L 02/09/22 11:01 Magnesium 1.7 mg/dl (1.7-2.4) 02/09/22 11:01 Total Bilirubin 1.0 mg/dl (0.2-1.0) 02/09/22 11:01 AST 19 U/L (13-39) 02/09/22 11:01 ALT 7 U/L (7-52) 02/09/22 11:01 Alkaline Phosphatase 58 U/L (34-104) 02/09/22 11:01 Troponin I High Sens 10.5 pg/ml (0-14) 02/09/22 11:01 Total Protein 7.9 gm/dl (6.0-8.3) 02/09/22 11:01 Albumin 3.8 gm/dl (3.4-5.0) 02/09/22 11:01 Globulin 4.1 gm/dl (2.5-4.0) H 02/09/22 11:01 Albumin/Globulin Ratio 0.9 (0.9-2) 02/09/22 11:01 Procalcitonin 0.36 ng/ml (0-0.5) 02/09/22 11:01 Urine Color Yellow 02/09/22 11:30 Urine Appearance Clear (Clear) 02/09/22 11:30 Urine pH 5.0 (4.5-7.5) 02/09/22 11:30 Ur Specific [place] 1.020 (1.000-1.030) 02/09/22 11:30 Urine Protein Trace (Negative) H 02/09/22 11:30 Urine Glucose (UA) Negative (Negative) 02/09/22 11:30 Urine Ketones Trace (Negative) H 02/09/22 11:30 Urine Blood 3+ (Negative) H 02/09/22 11:30 Urine Nitrite Negative (Negative) 02/09/22 11:30 Urine Bilirubin Negative (Negative) 02/09/22 11:30 Urine Urobilinogen Negative (Negative) 02/09/22 11:30 Ur Leukocyte Esterase Trace (Negative) H 02/09/22 11:30 Urine WBC (Auto) 1-5 /hpf (0-5) 02/09/22 11:30 Urine RBC (Auto) 10-30 /hpf (0-4) H 02/09/22 11:30 U Hyaline Cast (Auto) 1-5 /lpf (0-5) 02/09/22 11:30 U Epithel Cells (Auto) 5-10 /lpf (0-5) H 02/09/22 11:30 Urine Bacteria (Auto) Negative (Negative) 02/09/22 11:30 SARS-CoV-2 (PCR) NEGATIVE (Negative) 02/09/22 11:48 Influenza Type A (PCR) Negative (Neg) 02/09/22 11:48 Influenza Type B (PCR) Negative (Neg) 02/09/22 11:48 RSV (RT-PCR) Negative (Neg) 02/09/22 11:48 Impressions Chest X-Ray 02/09/22 10:44 XR chest 1V portable CLINICAL HISTORY: SEPSIS TECHNIQUE: Single frontal radiograph of the chest was obtained. Comparison: Comparison is made to chest radiograph 12/20/2020 FINDINGS: No lines and tubes are seen. The cardiomediastinal silhouette is normal. Prominence and cephalization of the vasculature is seen. No evidence of pleural effusion or pneumothorax. IMPRESSION: Mild pulmonary edema. ACT 112: Negative or not required by law. Electronically signed by: Art Burks M.D. 02/09/2022 12:15 PM Abdomen/Pelvis CT 02/09/22 11:[address] WITHOUT CONTRAST CT DOSE: 1017.85 mGycm HISTORY: Generalized abdominal pain. poss colitis, fever, diarrhea TECHNIQUE: Multiaxial CT images of the abdomen and pelvis were performed without contrast. A dose lowering technique was utilized adhering to the principles of ALARA. COMPARISON STUDY: Abdomen and pelvis CT 06/04/2021. FINDINGS: Stable 4 mm left lower lobe nodule on image 59. Mild motion artifact. No pneumoperitoneum. No pneumatosis. There is a right total hip arthroplasty again noted. Old L2 and L4 compression deformities remain unchanged. Cholecystectomy. Mild hepatic steatosis. Stable 9 mm hypodense lesion within the left hepatic dome. This favors a cyst. The unenhanced spleen, adrenal glands, and pancreas are unremarkable. Mild bilateral perinephric edema which is likely chronic. No renal or ureteral stones. No hydronephrosis. There is a 2 cm diverticulum at the third portion of the duodenum. Mild calcified plaque within the normal caliber abdominal aorta. No retroperitoneal lymphadenopathy. Mild central mesenteric infiltration suggestive of a panniculitis. This is of doubtful clinical significance. The pelvic structures are suboptimally assessed due to the metallic artifact from the right hip prosthesis. However, the bladder, uterus, bilateral adnexa appear within normal limits. Colonic divert iculosis. No evidence for acute diverticulitis. No bowel wall thickening or obstruction. Fluid-filled nondilated large and small bowel. Normal appendix. IMPRESSION: 1. Fluid-filled nondilated loops of large and small bowel seen throughout the abdomen. This favors a gastroenteritis/diarrheal illness. 2. No evidence for bowel obstruction. 3. Cholelithiasis. 4. Normal appendix. 5. Colonic diverticulosis. No evidence for acute diverticulitis. 6. Hepatic steatosis. 7. Additional findings as described above. ACT 112: Negative or not required by law. Electronically signed by: Rajinder Garay M.D. 02/09/2022 1:[address] 02/09/22 11:[address] DOSE: 788.63 mGycm HISTORY: confusion TECHNIQUE: Multiaxial CT images of the head were performed without the use of intravenous contrast. Automated exposure control was utilized for this study. A dose lowering technique was utilized adhering to the principles of ALARA. Comparison: Head CT 12/20/2020. Findings: The paranasal sinuses and mastoid air cells are clear. The calvarium and skull base are intact. There is no mass, hematoma, midline shift, acute infarct. White matter hypodensity is nonspecific but suggestive of microvascular ischemic change. The ventricles and sulci demonstrate mild age-related involutional changes. 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 Impression: No significant change compared to the prior study. No acute intracranial abnormality. ACT 112: Negative or not required by law. Electronically signed by: Rajinder Garay M.D. 02/09/2022 12:55 PM Code Status & VTE Plan Code Status Full code VTE Prophylaxis Plan VTE Prophylaxis will be ordered: Yes PG Care Time/CCT Total # of Minutes Spent Total Time Spent with Patient: Total time spent is greater than 50% in coordination of care (as documented) at patient's floor/unit and/or counseling patient: Coding Level of Care Code 38805 Initial Inpt Care Lvl 3 Diagnoses Gastroenteritis K52.9 Folate deficiency E53.8 Thiamine deficiency E51.9 Secondary adrenal insufficiency E27.49 Hypertension I10 Central hypothyroidism E03.8 Anticoagulated on Coumadin Z79.01 Idiopathic polyneuropathy G60.9 Vitamin D deficiency E55.9 Vitamin B12 deficiency E53.8 Mixed stress and urge urinary incontinence N39.46 Acute kidney injury N17.9
[2022-02-09 14:32] LABS: Adenovirus F 40/41 PCR Not Detected (NotDetected); Astrovirus PCR Not Detected (NotDetected); Campylobacter PCR Not Detected (NotDetected); Clostridium diff Toxin A/B PCR Not Detected (NotDetected); Cryptosporidium PCR Not Detected (NotDetected); Cyclospora cayetanensis PCR Not Detected (NotDetected); Entamoeba histolytica PCR Not Detected (NotDetected); Enteroaggregative E.coli(EAEC) Not Detected (NotDetected); Enteropathogenic E.coli (EPEC) Not Detected (NotDetected); Enterotoxigenic E.coli (ETEC) Not Detected (NotDetected); Giardia lamblia PCR Not Detected (NotDetected); Plesiomonas shigelloides PCR Not Detected (NotDetected); Rotavirus A PCR Not Detected (NotDetected); Salmonella PCR Not Detected (NotDetected); Sapovirus PCR Not Detected (NotDetected); Shiga-like Toxin E.coli (STEC) Not Detected (NotDetected); Shigella/Enteroinvasive E.coli Not Detected (NotDetected); Vibrio cholerae PCR Not Detected (NotDetected); Vibrio species PCR Not Detected (NotDetected); Yersinia enterocolitica PCR Not Detected (NotDetected)
[2022-02-09 14:34] LABS: Norovirus GI/GII PCR DETECTED (NotDetected)
[2022-02-09] MEDS ORDERED: ACETAMINOPHEN 325 MG TAB PO PRN (16:06)
[2022-02-09] MEDS ORDERED: ONDANSETRON INJ 2 MG/ML 2 ML VIAL IV PRN (16:06)
[2022-02-09] MEDS: SODIUM CHLORIDE 0.9% 1000ML 1,000 ML IV SCH (16:50)
[2022-02-09] MEDS: ENOXAPARIN 100 MG/1ML SYR SQ SCH (17:29)
[2022-02-09] MEDS: amLODIPine BESYLATE 5 MG TAB PO SCH (17:30)
[2022-02-09] MEDS: FAMOTIDINE 20 MG in SYRINGE 3 ML IV SCH (18:03)
[2022-02-09] MEDS: HYDROCORTISONE SOD 100 MG in SYRINGE 0 ML IV SCH (19:29)
[2022-02-09] MEDS: CALCITRIOL 0.25 MCG CAPSULE PO SCH (20:00)
[2022-02-09] MEDS ORDERED: HYDROCORTISONE SOD SUCCINATE 100 MG/2 ML VIAL IV SCH (20:00)
[2022-02-09] MEDS: POTASSIUM CHLORIDE CRTAB 20 MEQ TABCR PO SCH (20:00)
[2022-02-09] MEDS: OXYBUTYNIN CHLORIDE XL 5 MG TABCR PO SCH (20:00)
[2022-02-10] MEDS ORDERED: ACETAMINOPHEN 1000 MG/100 ML IV IV PRN (01:15)
[2022-02-10] MEDS: HYDROCORTISONE SOD 100 MG in SYRINGE 0 ML IV SCH ×3 (04:04→20:21)
[2022-02-10] MEDS: ENOXAPARIN 100 MG/1ML SYR SQ SCH ×2 (04:04→16:49)
[2022-02-10] MEDS: SODIUM CHLORIDE 0.9% 1000ML 1,000 ML IV SCH (05:21)
[2022-02-10] MEDS ORDERED: LEVOTHYROXINE SODIUM 137 MCG TABLET PO SCH (09:00)
[2022-02-10] MEDS ORDERED: LEVOTHYROXINE SODIUM 75 MCG in SYRINGE 0 ML IV SCH (09:00)
[2022-02-10] MEDS: FAMOTIDINE 20 MG in SYRINGE 3 ML IV SCH (09:07)
[2022-02-10 09:08] LABS: Hematocrit (blood only) 33.4 % (37-47); Hemoglobin 11.2 g/dL (12.0-16.0); Mean Corpuscular Hemoglobin 29.7 pg (25-34); Mean Corpuscular Hgb Conc 33.5 g/dL (32-36); Mean Corpuscular Volume 88.6 fL (80-100); Mean Platelet Volume 9.1 fL (7.4-10.4); Platelet Count 251 K/uL (130-400); RDW Coefficient of Variation 13.5 % (11.5-14.5); RDW Standard Deviation 43.8 fL (36.4-46.3); Red Blood Count 3.77 M/uL (4.2-5.4)
[2022-02-10] MEDS: CALCITRIOL 0.25 MCG CAPSULE PO SCH ×2 (09:08→20:21)
[2022-02-10] MEDS: THIAMINE HCL 100 MG TAB PO SCH (09:08)
[2022-02-10] MEDS: POTASSIUM CHLORIDE CRTAB 20 MEQ TABCR PO SCH ×2 (09:09→20:21)
[2022-02-10 09:29] LABS: Albumin Level 3.3 gm/dl (3.4-5.0); BUN Creatinine Ratio 19.8 (10-20); Calcium 7.7 mg/dl (8.5-10.1); Est GFR (African American) 65.3 ml/min; Est GFR (Non-African American) 56.4 ml/min; Phosphorus 2.7 mg/dl (2.5-4.9); Potassium 3.7 mmol/L (3.5-5.1)
[2022-02-10] MEDS ORDERED: LOPERAMIDE HCL 2 MG CAP PO PRN (09:41)
--- NOTE | 2022-02-10 09:42 | Hospitalist Progress Note ---
Date of Service February 10, 2022 Assessment & Plan (1) Norovirus: Plan: No further antibiotics required Loperamide PRN Switch IV fluids to D5 0.5 NSS @ 80ml.hr Acetaminophen PO PRN for pain or fever (2) Gastroenteritis: Plan: As above (3) Central hypothyroidism: Plan: Switch levothyroxine and hydrocortisone back to PO tomorrow. (4) Secondary adrenal insufficiency: Plan: Continue Hydrocortisone 100 mg IV every 8 hours Switch back to PO tomorrow (5) Hypertension: Plan: Hold amlodipine given current BP Hydralazine 10 mg IV every 4 hours. Systolic blood pressure greater than 160 (6) Anticoagulated on Coumadin: Plan: History DVT- Continue Lovenox 1 mg/kg subcu every 12 hours (7) Acute kidney injury: Plan: Creatinine 1.51 on admission Bicarb improving on NSS overnight. Switch fluids as above due to chloride level rising (8) Vitamin D deficiency: Plan: Resume calcitriol 0.25 mcg p.o. twice daily (9) Thiamine deficiency: Plan: Resume thiamine 100 mg p.o. daily (10) Folate deficiency: Plan: Resume folic acid 40 mcg daily (11) Vitamin B12 deficiency: Plan: Repeat level in AM to make sure she doesn't need injections for this. Previously 173 pg/ml in Nov. Continue supplementation 2000 mcg PO daily (12) Mixed stress and urge urinary incontinence: Plan: Resume oxybutynin chloride (13) Idiopathic polyneuropathy: Plan: VTE prophylaxis - Lovenox Diet - switch to low fiber Disposition - continued admission pending PT/OT evals and switching over to PO meds Admission and Anticipated Discharge Date Admission Date: February 09, 2022 Subjective Ongoing diarrhea but patient much more alert today. No nausea or vomiting. She reports feeling hungry. Feels generally fatigued however. Review of Systems Review of Systems: All systems reviewed & are unremarkable except as noted in Subjective Physical Exam Constitutional: WD/WN, vitals as above ENMT: external ear and nose normal, oropharynx normal Respiratory: normal respiratory effort, lungs clear to auscultation Cardiovascular: RRR, no murmur, no edema Gastrointestinal (Abdomen): normal bowel sounds, soft, nontender, no hepatosplenomegaly Musculoskeletal: no cyanosis or clubbing, extremities motor strength 5/5 Skin: no rashes, warm and dry Neurologic: moves all extremities and awake; not confused Psychiatric: A+Ox3, euthymic affect Results & Data Results & Data ([facility]) Vital Signs (Past 12 Hours) Vital Signs Temp Pulse Pulse Resp BP BP Pulse Ox 02/10/22 07:59 36.5 C 74 16 124/62 98 02/10/22 03:26 18 02/10/22 03:01 36.7 C 84 18 124/72 96 02/10/22 00:56 20 02/09/22 23:09 36.3 C L 81 18 119/71 99 02/09/22 22:17 74 PG Care Time/CCT Total # of Minutes Spent Total Time Spent with Patient: Total time spent is greater than 50% in coordination of care (as documented) at patient's floor/unit and/or counseling patient: Coding Level of Care Code 16817 Subseq Hosp Care Lvl 2 Diagnoses Gastroenteritis K52.9 Central hypothyroidism E03.8 Secondary adrenal insufficiency E27.49 Hypertension I10 Anticoagulated on Coumadin Z79.01 Acute kidney injury N17.9 Vitamin D deficiency E55.9 Thiamine deficiency E51.9 Folate deficiency E53.8 Vitamin B12 deficiency E53.8 Mixed stress and urge urinary incontinence N39.46 Idiopathic polyneuropathy G60.9 Norovirus A08.11
[2022-02-10 09:43] LABS: Immature Granulocytes # (auto) 0.02 K/uL (0.00-0.02); Immature Granulocytes % (auto) 0.3 %; Lymphocytes # (auto) 0.61 K/uL (1.2-3.4); Lymphocytes % (auto) 8.8 %; Monocytes # (auto) 0.18 K/uL (0.11-0.59); Monocytes % (auto) 2.6 %; Neutrophils # (auto) 6.09 K/uL (1.4-6.5); Neutrophils % (auto) 88.3 %
[2022-02-10] MEDS: D5W AND 1/2NSS 1,000 ML IV SCH ×2 (10:03→22:53)
[2022-02-10] MEDS: CYANOCOBALAMIN (B-12) 500 MCG TABLET PO SCH (12:39)
[2022-02-10] MEDS: FOLIC ACID 400 MCG TAB PO SCH (12:40)
[2022-02-10] MEDS: OXYBUTYNIN CHLORIDE XL 5 MG TABCR PO SCH (20:21)
[2022-02-11] MEDS: HYDROCORTISONE SOD 100 MG in SYRINGE 0 ML IV SCH (04:15)
[2022-02-11] MEDS: ENOXAPARIN 100 MG/1ML SYR SQ SCH ×2 (04:16→15:55)
[2022-02-11] MEDS ORDERED: HYDROCORTISONE 10 MG TAB PO SCH ×3 (08:00→17:00)
[2022-02-11 08:53] LABS: Hematocrit (blood only) 33.2 % (37-47); Hemoglobin 11.3 g/dL (12.0-16.0); Immature Granulocytes # (auto) 0.03 K/uL (0.00-0.02); Immature Granulocytes % (auto) 0.4 %; Lymphocytes # (auto) 0.55 K/uL (1.2-3.4); Lymphocytes % (auto) 6.8 %; Mean Corpuscular Hemoglobin 30.1 pg (25-34); Mean Corpuscular Volume 88.5 fL (80-100); Mean Platelet Volume 9.5 fL (7.4-10.4); Monocytes # (auto) 0.32 K/uL (0.11-0.59); Monocytes % (auto) 3.9 %; Neutrophils # (auto) 7.22 K/uL (1.4-6.5); Neutrophils % (auto) 88.9 %; Platelet Count 292 K/uL (130-400); RDW Coefficient of Variation 13.8 % (11.5-14.5); RDW Standard Deviation 45.1 fL (36.4-46.3); Red Blood Count 3.75 M/uL (4.2-5.4); White Blood Count 8.12 K/uL (4.8-10.8)
[2022-02-11] MEDS: CALCITRIOL 0.25 MCG CAPSULE PO SCH (09:14)
[2022-02-11 09:15] LABS: INR 1.8 (0.9-1.1); Prothrombin Time 18.1 Seconds (9.0-12.0)
[2022-02-11] MEDS: THIAMINE HCL 100 MG TAB PO SCH (09:15)
[2022-02-11] MEDS: POTASSIUM CHLORIDE CRTAB 20 MEQ TABCR PO SCH (09:15)
[2022-02-11 09:21] LABS: Albumin Level 3.5 gm/dl (3.4-5.0); BUN Creatinine Ratio 19.6 (10-20); Calcium 8.3 mg/dl (8.5-10.1); Creatinine Clr Calc Pharmacy 55.3 ml/min; Est GFR (African American) 60.9 ml/min; Est GFR (Non-African American) 52.6 ml/min; Phosphorus 1.4 mg/dl (2.5-4.9); Potassium 3.6 mmol/L (3.5-5.1)
[2022-02-11] MEDS: CYANOCOBALAMIN (B-12) 500 MCG TABLET PO SCH (11:48)
[2022-02-11] MEDS: FOLIC ACID 400 MCG TAB PO SCH (11:48)
[2022-02-11] MEDS: amLODIPine BESYLATE 5 MG TAB PO SCH (15:55)
[2022-02-11] MEDS ORDERED: WARFARIN SOD 5 MG TAB PO SCH (16:00)
[2022-02-11] MEDS ORDERED: POT PHOSPHATE MONOBASIC W/ SOD TAB PO SCH (17:00)
[2022-02-12] MEDS ORDERED: HYDROCORTISONE 10 MG TAB PO SCH ×2 (09:00→17:00)
[2022-02-12] MEDS ORDERED: WARFARIN SOD 2.5 MG TAB PO SCH (16:00)
--- NOTE | 2022-02-26 10:34 | Discharge Summary ---
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 Patient was noted to have a temperature by EMS. Upon arrival to the ED, patient was lethargic and unresponsive. She was given 1 g of oral Tylenol, a 250 cc normal saline bolus, and stress dosing hydrocortisone 100 mg IV x1 Principal Diagnosis Norovirus Adrenal crisis Discharge Exam Constitutional: WD/WN, vitals as above ENMT: external ear and nose normal, oropharynx normal Respiratory: normal respiratory effort, lungs clear to auscultation Cardiovascular: RRR, no murmur, no edema Gastrointestinal (Abdomen): normal bowel sounds, soft, nontender, no hepatosplenomegaly Musculoskeletal: no cyanosis or clubbing, extremities motor strength 5/5 Skin: no rashes, warm and dry Neurologic: moves all extremities and awake; not confused Psychiatric: A+Ox3, euthymic affect Discharge Data Allergies Allergy/AdvReac Type Severity Reaction Status Date / Time Penicillins Allergy Mild hives Verified 02/09/22 11:20 sertraline AdvReac Intermediate acting Verified 02/09/22 11:20 funny tramadol AdvReac Intermediate Hyponatremi Verified 02/09/22 11:20 a Consultations 02/09/22 13:22 ED Decision to Admit Stat Ordered Studies 02/09/22 11:45 CT abd pelvis wo con Stat IMPRESSION: 1. Fluid-filled nondilated loops of large and small bowel seen throughout the abdomen. This favors a gastroenteritis/diarrheal illness. 2. No evidence for bowel obstruction. 3. Cholelithiasis. 4. Normal appendix. 5. Colonic diverticulosis. No evidence for acute diverticulitis. 6. Hepatic steatosis. 7. Additional findings as described above. CT head/brain wo con Stat Impression: No significant change compared to the prior study. No acute intracranial abnormality. Hospital Course (1) Norovirus: Lucia Schulz is a 71 year old female admitted to [facility] from February 09 to 2021 due to nausea, vomiting, diarrhea and lethargy. She was diagnosed with adrenal crisis and norovirus on stool PCR. Adrenal crisis was treated with intravenous hydrocortisone with quick resolution of her symptoms and she was switched back to her usual outpatient stress dose hydrocortisone on day of discharge. Her diarrhea resolved during her inpatient stay and recommended resuming her usual dose of hydrocortisone tomorrow. No specific treatment for norovirus was required but she was advised to take loperamide as needed. INR 1.8 on day of discharge. She will continue her usual dose of warfarin and follow up with your primary care provider with repeat INR in the next week. Her phosphorus level was also noted to be low, likely due to refeeding after not eating for several days. Supplementation prescribed for the next 3 days as her appetite improves. (2) Gastroenteritis: (3) Central hypothyroidism: (4) Secondary adrenal insufficiency: (5) Hypertension: (6) Anticoagulated on Coumadin: (7) Acute kidney injury: (8) Vitamin D deficiency: (9) Thiamine deficiency: (10) Folate deficiency: (11) Vitamin B12 deficiency: (12) Mixed stress and urge urinary incontinence: (13) Idiopathic polyneuropathy: Total Time Total Time Spent Total Time Spent (In Minutes): 40 Discharge Plan Discharge Items Patient Disposition: Home - Self-Care Reason For Visit: GASTROENTERITIS, LETHARGY Discharge Diagnosis: Norovirus Adrenal crisis Condition on Discharge: Fair Activity: Resume your previous activity Non-emergency contact: Primary Care Provider Call non-emergency contact if: you have any medication questions and your symptoms worsen Follow-up/Referrals: Francisca Elias CRNP [Primary Care Provider] - Diet: Low Fiber Addtl Attending Provider Instructions: You were admitted to [facility] from February 09 to 2021 due to nausea, vomiting, diarrhea and lethargy. You were diagnosed with adrenal crisis and norovirus. Adrenal crisis was treated with intravenous hydrocortisone with quick resolution of your symptoms and you are switched back to your stress dose hydrocortisone on day of discharge. Since your diarrhea has resolved recommend resuming your usual dose of hydrocortisone tomorrow. No specific treatment for norovirus is required however you may take loperamide [id number] if this continues. INR 1.8 on day of discharge. Recommend continuing your usual dose of warfarin and following up with your primary care provider with repeat INR in the next week. Your phosphorus level was also noted to be low, this is due to refeeding after not eating. Recommend supplementation for this for the next 3 days as your appetite improves. Pending Studies at Discharge: No Stand-Alone Forms: [facility] [employer], Smoking Cessation Medications and DC Order Prescriptions: Continued hydrocortisone 10 mg tablet 10 mg PO .COMPLEX 90 Days Qty: 300 RF: 3 potassium chloride [Klor-Con M20] 20 mEq tablet,ER particles/crystals 20 meq PO BID Qty: 60 RF: 5 levothyroxine 137 mcg tablet 137 mcg PO QAM Qty: 30 RF: 1 (DME) Wheeled Walker Misc See Rx Instructions .ROUTE .MEDSUPPLY Qty: 1 RF: 0 thiamine HCl (vitamin B1) [Vitamin B-1] 100 mg Tablet 100 mg PO QAM Qty: 30 RF: 0 amlodipine [Norvasc] 5 mg tablet 10 mg PO QDD RF: 0 oxybutynin chloride [Ditropan XL] 5 mg tablet extended release 24hr 5 mg PO QPM RF: 0 acetaminophen [Tylenol Extra Strength] 500 mg Tablet 1,000 mg PO Q6H PRN (Reason: Pain) RF: 0 warfarin 5 mg tablet 2.5 mg PO TUTHSA RF: 0 folic acid 400 mcg tablet 400 mcg PO DAILY@1200 RF: 0 cyanocobalamin (vitamin B-12) 500 mcg tablet 2,000 mcg PO DAILY@1200 RF: 0 warfarin 5 mg tablet 5 mg PO SUMOWEFR RF: 0 calcitriol 0.25 mcg capsule 0.25 mcg PO BID RF: 0 Discharge Orders: Discharge Order (Routine); Ordered 02/11/22 Ordered By: Victor M Enriquez Admission Data Admit Date/Time: 02/09/22 14:06 Attending Provider: Victor M Enriquez Admit Provider: Rodrigo Murphy Primary Care Provider: Francisca Elias Other Interventions: Discharge Summary Assessment (RN) Last Done: 02/11/22 16:05 Coding Level of Care Code D/C DAY MANAGEMENT >30 MINS Diagnoses Norovirus A08.11 Gastroenteritis K52.9 Central hypothyroidism E03.8 Secondary adrenal insufficiency E27.49 Hypertension I10 Anticoagulated on Coumadin Z79.01 Acute kidney injury N17.9 Vitamin D deficiency E55.9 Thiamine deficiency E51.9 Folate deficiency E53.8 Vitamin B12 deficiency E53.8 Mixed stress and urge urinary incontinence N39.46 Idiopathic polyneuropathy G60.9
--- NOTE | 2022-02-27 07:19 | Coding Query ---
CODING QUERY To promote full compliance with coding requirements relating to patient care, provider participation is requested in all cases of horse racetrack manager uncertainty. Please assist us with the question(s) below: Coding Question(s): Concern for Sepsis is documented on the ER with, "The patient presented confused, febrile and tachycardic. I was concerned for sepsis", and, "She received IV ertapenem as empiric antibiotic coverage", and the H&P documents, " Gastroenteritis: Plan: Await stool studies, stool PCR sent Received ertapenem 1 g IV from the ED, await further antibiotics until results of studies Maintain on IV fluids, NS at 80 mils per hour Acetaminophen 1 g IV every 8 hours as needed mild pain or fever", and possible Sepsis is not mentioned further. Please specify below, in your clinical opinion, regarding Sepsis. ( X ) Possible Sepsis most likely due to the Gastroenteritis (that is found to be Norovirus) with treatment including IV ertapenem (prior to norovirus diagnosis), IV Acetaminophen and IV fluids. ( ) Possible Sepsis most likely due to Other: Please Specify ( ) Possible Sepsis due to Unknown likely source ( ) No Sepsis - Sepsis is Ruled-Out Physician's Response(s): Thank you Sandrine Landeros Principal Diagnosis: "that condition established after study, to be chiefly responsible for occasioning the admission of the patient to the hospital for care." Co-Existing Principal Diagnosis: "when two or more diagnoses equally meet the criteria for principal diagnosis as determined by the circumstances of admission, diagnostic work up, and/or therapy provided, and the Alphabetic Index, Tabular List, or another coding guideline does not provide sequencing direction, any one of the diagnoses may be sequenced first." "When the physician has documented what appears to be a current diagnosis in the body of the record, but has not included the diagnosis in the final diagnostic statement, the physician should be asked whether the diagnosis should be added." (Source Coding Clinic 2 QTR90. p3-4) ISAIAS
== END 2022-02-11 16:46 | disposition home or self-care (01) | DRG 872 ==
LOC: ED 10:25 → SUATTDRO 14:06 → 2W 14:06

== ENCOUNTER 2022-06-09 11:36 | Inpatient (IN) ==
[2022-06-09] MEDS ORDERED: cefTRIAXone SODIUM 2,000 MG/70 ML BAG IV STA (11:45)
[2022-06-09] MEDS ORDERED: SODIUM CHLORIDE 0.9% 1000ML 2,000 ML IV ONE (11:45)
[2022-06-09] MEDS ORDERED: HYDROCORTISONE SOD SUCCINATE 100 MG/2 ML VIAL IV STA (12:00)
--- NOTE | 2022-06-09 12:00 | Emergency Department Note ---
Impression & Plan Sepsis, Weakness, AMS (altered mental status), UTI (urinary tract infection) ED Provider Note NAME: GISELA MANZANO AGE: 71 SEX: F : 1950 ARRIVES VIA: Ambulance INFORMANT: Patient ED PROVIDER(S): Brennen Strickland DO CHIEF COMPLAINT: AMS HPI: Patient is a 71-year-old female with a past medical history of SIADH, anemia, hypertension, hyperlipidemia, depression, anxiety, who presents the ER for altered mental status. found the patient confused this morning and unresponsive. EMS found her to be unresponsive brought her in. Per EMS they were concerned patient had exposure to COVID. Eventually presented and notes that she was fine until this morning when she was found to be confused. She had no known exposure to COVID but was at a libertarian this weekend with multiple people. He also notes that she has frequent urinary tract infections and believes that is most likely because of what is going on today. She was febrile and given Tylenol vis EMS 1gm. Patient denies all complaints but is confused. History is limited secondary to mentation. ROS: Review of systems limited secondary to mentation PAST MEDICAL HISTORY:See Below PAST SURGICAL HISTORY:See Below FAMILY HISTORY:See Below SOCIAL HISTORY:See Below HOME MEDICATIONS:See Below ALLERGIES:See Below VITALS:See Below PHYSICAL EXAMINATION: GENERAL: Sitting up in bed, awakens to voice, ill-appearing and confused EYE EXAM: normal conjunctiva. OROPHARYNX: Dry mucous membranes NECK: supple, no nuchal rigidity, no adenopathy, non-tender LUNGS: Clear to auscultation. Normal chest wall mechanics HEART: S1 normal and S2 normal ABDOMEN: abdomen soft, non-tender, normo-active bowel sounds, no masses, no rebound or guarding. UPPER EXTREMITIES: upper extremities are grossly normal. LOWER EXTREMITIES: mild edema B/L NEURO EXAM: Oriented to person but not place or time, cranial nerves II-XII grossly intact, normal speech, no gross weakness of arms, no gross weakness of legs. MEDICAL DECISION MAKING: Patient is a 71-year-old female who presents to the ER for confusion found to be febrile, tachycardic, and tachypneic. IV was established blood work was obtained. Labs show no significant leukocytosis. Mild anemia 11.8. INR therapeutic at 2.6. VBG with a pH of 7.51. CO2 at 30. BMP with mild hyponatremia at 133. Creatinine 1.4. LFTs bilirubin was unremarkable. Troponin slightly detectable. Pro-Celio up at 0.55. Patient was given 2 L of IV fluids in combination with IV Rocephin. Chest x-ray did show cardiomegaly and consequently patient was only given 2 L. Held on additional third liter of normal saline for 30 cc/kg secondary to the cardiomegaly and concern for fluid overload as she did have some mild pitting edema in the lower extremities. Initially believed this to be COVID based on EMS history however after discussion with favor that this is likely UTI. COVID did result was negative. UA was pending upon admission as patient urinated over the stretcher upon arrival via EMS and urine was delayed secondary to this. Will defer to the hospitalist as this patient was already given fluids and antibiotics with UA pending and Pt admitted. Triage Nursing notes reviewed. Limited review of prior medical records performed Vital Signs: reviewed and remarkable for TACHY, febrile and tachypneic Differential diagnosis: Differential diagnoses includes but is not limited to toxic, metabolic, infectious, traumatic, cardiac, neurologic, hematologic, psychiatric and inflammatory etiologies. ER treatment provided: See below Diagnostics interpreted by me: ECG: Sinus tachycardia rate of 113 Left axis No PVCs Poor baseline in V3 and V6 QTC 416 Cardiac Monitoring: An order was placed for continuous cardiac monitoring. The monitor shows a rate of 101 with sinus rhythm. Laboratory studies: As stated above and show below. Imaging studies: CT head was negative Portable AP upright 1 view chest was unremarkable Consultation(s): Discussed with Suyapa Cao for further evaluation Procedures: none Critical Care: None Past Med/Surg History Medical History Acute alteration in mental status Acute kidney injury Acute UTI Anemia Anticoagulated on Coumadin Anxiety Bilateral lower extremity edema Due water retention- cannot take diuretics due to urinary frequency Central hypothyroidism Depression DVT (deep venous thrombosis) X 2-WAS PLACED ON WARFARIN "YRS AGO"-NO ISSUES SINCE PER PT Dyslipidemia Folate deficiency Gastroenteritis Growth hormone deficiency Hyperlipidemia NO MEDS CURRENTLY Hypertension Hypokalemia Hyponatremia Hypopituitarism Idiopathic polyneuropathy IFG (impaired fasting glucose) Lumbar compression fracture Minimal endplate deformity Norovirus Obesity Osteopenia 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 Follows with neurosurgery PRN. Last seen by eyad January 2020. Pt denies recent issues Secondary adrenal insufficiency Short-term memory loss SIADH (syndrome of inappropriate ADH production) SOB (shortness of breath) on exertion 1 FLIGHT Thiamine deficiency Urinary, incontinence, stress female Vitamin B12 deficiency Vitamin D deficiency Surgical History History of breast biopsy LEFT-BENIGN History of cataract surgery R/L History of colonoscopy (05/31/18) Dr. Gonzalez, sigmoid diverticulosis, 4 mm sigmoid tubular adenoma polyp removed, recheck 5 years History of right hip replacement (~04/2020) History of tubal ligation Status post transsphenoidal pituitary resection 1993 [facility] Family History Father Deep vein thrombosis of lower extremity Peripheral artery disease Aunt Breast cancer Grandmother (Paternal) Coronary heart disease Grandfather (Paternal) Coronary heart disease Mother Schizophrenia Denies family history of Ovarian cancer Prostate cancer Myocardial infarction Colorectal cancer Social History Smoking Status: Never smoker Second Hand Exposure: No (N/a); Hx Alcohol Use: No Hx Substance Use: No Preferred Language: Chinese Communication Ability: Effective Visual Impairment: No Limitations Hearing Ability: Normal Mental Health Social Worker Required: No Beliefs That Will Affect Care: None marital status: Current Living Situation: Spouse current occupational status: retired How many Children do You have: 2 Feels Safe at Home: Yes Safety Concerns: Feels Safe At This Time Dental Care, Regularly: No Physical Activity Frequency: Does not Exercise Seatbelt Use: sometimes Assistive Devices: Cane and Glasses Allergies Allergies Allergy/AdvReac Type Severity Reaction Status Date / Time Penicillins Allergy Mild hives Verified 06/08/22 11:25 sertraline AdvReac Intermediate acting Verified 06/08/22 11:25 funny tramadol AdvReac Intermediate Hyponatremi Verified 06/08/22 11:25 a Home Meds Home Medications Medication Instructions Recorded Confirmed acetaminophen 500 mg tablet 1,000 mg PO Q6H PRN Pain 02/09/22 06/09/22 (Tylenol Extra Strength) cyanocobalamin (vitamin B-12) 500 2,000 mcg PO DAILY@1200 02/09/22 06/09/22 mcg tablet folic acid 400 mcg tablet 400 mcg PO DAILY@1200 02/09/22 06/09/22 warfarin 5 mg tablet See Rx Instructions .Route .COMPLEX 02/09/22 06/09/22 Previous Rx's Medication Instructions Recorded Rose Mary Walker #1 ea 04/17/20 thiamine HCl (vitamin B1) 100 mg 100 mg PO QAM #30 tabs 12/24/20 tablet (Vitamin B-1) hydrocortisone 10 mg tablet 10 mg PO .COMPLEX 90 days #300 tabs 07/07/21 potassium chloride 20 mEq 20 meq PO BID #60 tabs 03/02/22 tablet,extended release(part/cryst) (Klor-Con M) amlodipine 5 mg tablet (Norvasc) 10 mg PO DAILY #180 tabs 03/09/22 levothyroxine 125 mcg tablet 125 mcg PO DAILY #30 tabs 04/13/22 warfarin 5 mg tablet 5 mg PO SUMOWEFR #90 tabs 04/15/22 oxybutynin chloride 5 mg 5 mg PO DAILY #90 tabs 04/20/22 tablet,extended release 24 hr (Ditropan XL) calcitriol 0.25 mcg capsule 0.25 mcg PO BID #60 caps 06/03/22 Results & Data (ED) Vital Signs Vital Signs - 24 hr 06/09/22 11:42 06/09/22 11:45 06/09/22 11:45 Temperature 38.5 C H Temperature Source Oral Pulse Rate 113 H Pulse Rate [Apical] 96 H Pulse Rhythm [Apical] Regular Pulse Strength [Apical] Normal Respiratory Rate 28 H 26 H 26 H Respiratory Effort / Characteristics Respiratory Depth Normal Respiratory Pattern Blood Pressure 138/66 Blood Pressure [Left Arm] 138/66 Blood Pressure Mean 90 Blood Pressure Mean [Left Arm] 90 Blood Pressure Position [Left Arm] Pulse Oximetry 97 93 93 Oxygen Delivery Method Room Air Room Air Room Air Oxygen Flow Rate Sepsis Recent Fever Within 48 Hours No Sepsis New/Unexplained Change in Mental Status Yes Sepsis Action Taken by Nursing Physician Notified 06/09/22 11:45 06/09/22 11:45 06/09/22 12:00 Temperature Temperature Source Pulse Rate Pulse Rate [Apical] 96 H 105 H Pulse Rhythm [Apical] Regular Pulse Strength [Apical] Normal Respiratory Rate 26 H 25 H Respiratory Effort / Characteristics Respiratory Depth Normal Respiratory Pattern Blood Pressure Blood Pressure [Left Arm] 138/66 112/61 Blood Pressure Mean Blood Pressure Mean [Left Arm] 90 78 Blood Pressure Position [Left Arm] Pulse Oximetry 93 93 95 Oxygen Delivery Method Room Air Room Air Room Air Oxygen Flow Rate Sepsis Recent Fever Within 48 Hours Sepsis New/Unexplained Change in Mental Status Sepsis Action Taken by Nursing 06/09/22 11:30 06/09/22 12:30 06/09/22 12:30 Temperature Temperature Source Pulse Rate Pulse Rate [Apical] 101 H Pulse Rhythm [Apical] Pulse Strength [Apical] Respiratory Rate 23 23 Respiratory Effort / Characteristics Non-Labored Spontaneous Non-Labored Spontaneous Respiratory Depth Normal Respiratory Pattern Regular Blood Pressure Blood Pressure [Left Arm] 121/58 L Blood Pressure Mean Blood Pressure Mean [Left Arm] 79 Blood Pressure Position [Left Arm] Pulse Oximetry 93 94 94 Oxygen Delivery Method Room Air Room Air Room Air Oxygen Flow Rate 0 Sepsis Recent Fever Within 48 Hours Sepsis New/Unexplained Change in Mental Status Sepsis Action Taken by Nursing 06/09/22 12:45 06/09/22 13:00 06/09/22 13:00 Temperature Temperature Source Pulse Rate Pulse Rate [Apical] 93 H 90 Pulse Rhythm [Apical] Regular Regular Pulse Strength [Apical] Normal Normal Respiratory Rate 34 H 32 H 32 H Respiratory Effort / Characteristics Non-Labored Spontaneous Non-Labored Spontaneous Non-Labored Spontaneous Respiratory Depth Normal Normal Respiratory Pattern Regular Regular Blood Pressure Blood Pressure [Left Arm] 121/53 L 122/51 L Blood Pressure Mean Blood Pressure Mean [Left Arm] 75 74 Blood Pressure Position [Left Arm] Pulse Oximetry 93 92 92 Oxygen Delivery Method Room Air Room Air Room Air Oxygen Flow Rate Sepsis Recent Fever Within 48 Hours Sepsis New/Unexplained Change in Mental Status Sepsis Action Taken by Nursing 06/09/22 13:30 06/09/22 13:30 06/09/22 13:45 Temperature Temperature Source Pulse Rate Pulse Rate [Apical] 96 H 85 Pulse Rhythm [Apical] Regular Pulse Strength [Apical] Normal Respiratory Rate 25 H 33 H Respiratory Effort / Characteristics Non-Labored Spontaneous Non-Labored Spontaneous Non-Labored Spontaneous Respiratory Depth Normal Normal Respiratory Pattern Regular Blood Pressure Blood Pressure [Left Arm] 122/56 L 116/59 L Blood Pressure Mean Blood Pressure Mean [Left Arm] 78 78 Blood Pressure Position [Left Arm] Pulse Oximetry 96 96 92 Oxygen Delivery Method Room Air Room Air Room Air Oxygen Flow Rate Sepsis Recent Fever Within 48 Hours Sepsis New/Unexplained Change in Mental Status Sepsis Action Taken by Nursing 06/09/22 14:00 06/09/22 14:00 Temperature Temperature Source Pulse Rate Pulse Rate [Apical] 80 Pulse Rhythm [Apical] Pulse Strength [Apical] Respiratory Rate 31 H 32 H Respiratory Effort / Characteristics Non-Labored Spontaneous Non-Labored Spontaneous Respiratory Depth Normal Respiratory Pattern Regular Blood Pressure Blood Pressure [Left Arm] 119/58 L Blood Pressure Mean Blood Pressure Mean [Left Arm] 78 Blood Pressure Position [Left Arm] Lying Pulse Oximetry 93 93 Oxygen Delivery Method Room Air Room Air Oxygen Flow Rate Sepsis Recent Fever Within 48 Hours Sepsis New/Unexplained Change in Mental Status Sepsis Action Taken by Nursing Laboratory Data Result diagrams: 06/10/22 05:25 06/10/22 05:25 Lab Results 06/09/22 06/09/22 06/09/22 Range/Units 11:53 11:53 11:53 WBC 6.27 (4.8-10.8) K/ul RBC 3.95 (3.93-5.22) M/uL Hgb 11.8 L (12.0-16.0) g/dl POC Hgb (12.0-16.0) g/dl Hct 35.6 (34.1-44.9) % POC Hct (37-47) % MCV 90.1 (80.0-100.0) fL MCH 29.9 (25.0-34.0) pg MCHC 33.1 (32.0-36.0) g/dL RDW Std Deviation 44.5 (36.4-46.3) fL RDW Coeff of Mckayla 13.2 (11.5-14.5) % Plt Count 272 (130-400) K/uL MPV 9.2 L (9.4-12.3) fL Immature Gran % (Auto) 0.8 % Neut % (Auto) 82.4 % Lymph % (Auto) 12.8 % Valley % (Auto) 3.5 % Eos % (Auto) 0.2 % Baso % (Auto) 0.3 % Neut # (Auto) 5.17 (1.4-6.5) K/uL Lymph # (Auto) 0.80 L (1.2-3.4) K/uL [place] # (Auto) 0.22 L (0.24-0.82) K/uL Eos # (Auto) 0.01 (0-0.50) K/uL Baso # (Auto) 0.02 (0-0.2) K/uL Immature Gran # (Auto) 0.05 H (0.00-0.02) K/uL PT 26.1 H (9.0-12.0) Seconds INR 2.6 H (0.9-1.1) APTT 42.7 H (21.0-31.0) Seconds PTT Ratio 1.6 VBG pH (7.36-7.41) VBG pCO2 (38-50) mmHg VBG pO2 mmHg VBG HCO3 mmol/L VBG O2 Saturation % VBG Base Excess mEq/L POC Sodium (135-144) mmol/L Sodium 133 L (136-145) mmol/L POC Potassium (3.3-5.0) mmol/L Potassium 3.6 (3.5-5.1) mmol/L POC Chloride (101-112) mmol/L Chloride 102 (98-107) mmol/L Carbon Dioxide 21 (21-32) mmol/L POC Total CO2 (24-31) mmol/L Anion Gap 10 (3-11) POC Anion Gap (16-25) mmol/L POC BUN (7-18) mg/dl BUN 21 (6-23) mg/dl Creatinine 1.43 H (0.6-1.2) mg/dl POC Creatinine (0.6-1.3) mg/dl Est Cr Clr Drug Dosing 44.7 ml/min Est GFR ( Amer) 42.9 ml/min Est GFR (Non-Af Amer) 37.0 ml/min BUN/Creatinine Ratio 14.7 (10-20) Glucose 88 (70-99(Fasting)) mg/dl POC Glucose (other) (70-99) mg/dl Lactate (0.4-2.0) mmol/L Calcium 9.0 (8.5-10.1) mg/dl POC Ioniz Calcium Nani (1.12-1.32) mmol/l Magnesium 1.7 (1.7-2.4) mg/dl Total Bilirubin 0.7 (0.2-1.0) mg/dl AST 14 (13-39) U/L ALT 7 (7-52) U/L Alkaline Phosphatase 55 (34-104) U/L Troponin I High Sens 15.5 H (0-14) pg/ml Total Protein 7.4 (6.0-8.3) gm/dl Albumin 3.6 (3.4-5.0) gm/dl Globulin 3.8 (2.5-4.0) gm/dl Albumin/Globulin Ratio 0.9 (0.9-2) Procalcitonin (0-0.5) ng/ml Urine Color Urine Appearance (Clear) Urine pH (4.5-7.5) Ur Specific [place] (1.000-1.030) Urine Protein (Negative) Urine Glucose (UA) (Negative) Urine Ketones (Negative) Urine Blood (Negative) Urine Nitrite (Negative) Urine Bilirubin (Negative) Urine Urobilinogen (Negative) Ur Leukocyte Esterase (Negative) Urine WBC (Auto) (0-5) /hpf Urine RBC (Auto) (0-4) /hpf U Hyaline Cast (Auto) (0-5) /lpf U Epithel Cells (Auto) (0-5) /lpf Urine Bacteria (Auto) (Negative) Ur Renal Epithelial Cell SARS-CoV-2, RNA, NAAT (NEGATIVE) 06/09/22 06/09/22 06/09/22 Range/Units 11:53 11:53 11:53 WBC (4.8-10.8) K/ul RBC (3.93-5.22) M/uL Hgb (12.0-16.0) g/dl POC Hgb (12.0-16.0) g/dl Hct (34.1-44.9) % POC Hct (37-47) % MCV (80.0-100.0) fL MCH (25.0-34.0) pg MCHC (32.0-36.0) g/dL RDW Std Deviation (36.4-46.3) fL RDW Coeff of Mckayla (11.5-14.5) % Plt Count (130-400) K/uL MPV (9.4-12.3) fL Immature Gran % (Auto) % Neut % (Auto) % Lymph % (Auto) % Valley % (Auto) % Eos % (Auto) % Baso % (Auto) % Neut # (Auto) (1.4-6.5) K/uL Lymph # (Auto) (1.2-3.4) K/uL [place] # (Auto) (0.24-0.82) K/uL Eos # (Auto) (0-0.50) K/uL Baso # (Auto) (0-0.2) K/uL Immature Gran # (Auto) (0.00-0.02) K/uL PT (9.0-12.0) Seconds INR (0.9-1.1) APTT (21.0-31.0) Seconds PTT Ratio VBG pH 7.51 H (7.36-7.41) VBG pCO2 30 L (38-50) mmHg VBG pO2 38 mmHg VBG HCO3 24 mmol/L VBG O2 Saturation 75.6 % VBG Base Excess 1.7 mEq/L POC Sodium (135-144) mmol/L Sodium (136-145) mmol/L POC Potassium (3.3-5.0) mmol/L Potassium (3.5-5.1) mmol/L POC Chloride (101-112) mmol/L Chloride (98-107) mmol/L Carbon Dioxide (21-32) mmol/L POC Total CO2 (24-31) mmol/L Anion Gap (3-11) POC Anion Gap (16-25) mmol/L POC BUN (7-18) mg/dl BUN (6-23) mg/dl Creatinine (0.6-1.2) mg/dl POC Creatinine (0.6-1.3) mg/dl Est Cr Clr Drug Dosing ml/min Est GFR ( Amer) ml/min Est GFR (Non-Af Amer) ml/min BUN/Creatinine Ratio (10-20) Glucose (70-99(Fasting)) mg/dl POC Glucose (other) (70-99) mg/dl Lactate 1.2 (0.4-2.0) mmol/L Calcium (8.5-10.1) mg/dl POC Ioniz Calcium Nani (1.12-1.32) mmol/l Magnesium (1.7-2.4) mg/dl Total Bilirubin (0.2-1.0) mg/dl AST (13-39) U/L ALT (7-52) U/L Alkaline Phosphatase (34-104) U/L Troponin I High Sens (0-14) pg/ml Total Protein (6.0-8.3) gm/dl Albumin (3.4-5.0) gm/dl Globulin (2.5-4.0) gm/dl Albumin/Globulin Ratio (0.9-2) Procalcitonin 0.55 H (0-0.5) ng/ml Urine Color Urine Appearance (Clear) Urine pH (4.5-7.5) Ur Specific [place] (1.000-1.030) Urine Protein (Negative) Urine Glucose (UA) (Negative) Urine Ketones (Negative) Urine Blood (Negative) Urine Nitrite (Negative) Urine Bilirubin (Negative) Urine Urobilinogen (Negative) Ur Leukocyte Esterase (Negative) Urine WBC (Auto) (0-5) /hpf Urine RBC (Auto) (0-4) /hpf U Hyaline Cast (Auto) (0-5) /lpf U Epithel Cells (Auto) (0-5) /lpf Urine Bacteria (Auto) (Negative) Ur Renal Epithelial Cell SARS-CoV-2, RNA, NAAT (NEGATIVE) 06/09/22 06/09/22 06/09/22 Range/Units 12:01 13:21 13:30 WBC (4.8-10.8) K/ul RBC (3.93-5.22) M/uL Hgb (12.0-16.0) g/dl POC Hgb 11.9 L (12.0-16.0) g/dl Hct (34.1-44.9) % POC Hct 35 L (37-47) % MCV (80.0-100.0) fL MCH (25.0-34.0) pg MCHC (32.0-36.0) g/dL RDW Std Deviation (36.4-46.3) fL RDW Coeff of Mckayla (11.5-14.5) % Plt Count (130-400) K/uL MPV (9.4-12.3) fL Immature Gran % (Auto) % Neut % (Auto) % Lymph % (Auto) % [place] % (Auto) % Eos % (Auto) % Baso % (Auto) % Neut # (Auto) (1.4-6.5) K/uL Lymph # (Auto) (1.2-3.4) K/uL [place] # (Auto) (0.24-0.82) K/uL Eos # (Auto) (0-0.50) K/uL Baso # (Auto) (0-0.2) K/uL Immature Gran # (Auto) (0.00-0.02) K/uL PT (9.0-12.0) Seconds INR (0.9-1.1) APTT (21.0-31.0) Seconds PTT Ratio VBG pH (7.36-7.41) VBG pCO2 (38-50) mmHg VBG pO2 mmHg VBG HCO3 mmol/L VBG O2 Saturation % VBG Base Excess mEq/L POC Sodium 135 (135-144) mmol/L Sodium (136-145) mmol/L POC Potassium 3.7 (3.3-5.0) mmol/L Potassium (3.5-5.1) mmol/L POC Chloride 103 (101-112) mmol/L Chloride (98-107) mmol/L Carbon Dioxide (21-32) mmol/L POC Total CO2 21 L (24-31) mmol/L Anion Gap (3-11) POC Anion Gap 16.0 (16-25) mmol/L POC BUN 19 H (7-18) mg/dl BUN (6-23) mg/dl Creatinine (0.6-1.2) mg/dl POC Creatinine 1.5 H (0.6-1.3) mg/dl Est Cr Clr Drug Dosing ml/min Est GFR ( Amer) ml/min Est GFR (Non-Af Amer) ml/min BUN/Creatinine Ratio (10-20) Glucose (70-99(Fasting)) mg/dl POC Glucose (other) 95 (70-99) mg/dl Lactate (0.4-2.0) mmol/L Calcium (8.5-10.1) mg/dl POC Ioniz Calcium Nani 1.16 (1.12-1.32) mmol/l Magnesium (1.7-2.4) mg/dl Total Bilirubin (0.2-1.0) mg/dl AST (13-39) U/L ALT (7-52) U/L Alkaline Phosphatase (34-104) U/L Troponin I High Sens (0-14) pg/ml Total Protein (6.0-8.3) gm/dl Albumin (3.4-5.0) gm/dl Globulin (2.5-4.0) gm/dl Albumin/Globulin Ratio (0.9-2) Procalcitonin (0-0.5) ng/ml Urine Color Yellow Urine Appearance Clear (Clear) Urine pH 8.0 H (4.5-7.5) Ur Specific [place] 1.013 (1.000-1.030) Urine Protein Negative (Negative) Urine Glucose (UA) Negative (Negative) Urine Ketones Negative (Negative) Urine Blood 2+ H (Negative) Urine Nitrite Positive A (Negative) Urine Bilirubin Negative (Negative) Urine Urobilinogen Negative (Negative) Ur Leukocyte Esterase Trace H (Negative) Urine WBC (Auto) 5-10 H (0-5) /hpf Urine RBC (Auto) 5-10 H (0-4) /hpf U Hyaline Cast (Auto) 10-30 H (0-5) /lpf U Epithel Cells (Auto) >30 H (0-5) /lpf Urine Bacteria (Auto) 4+ H (Negative) Ur Renal Epithelial Cell Not Reportable SARS-CoV-2, RNA, NAAT NEGATIVE (NEGATIVE) Administered Medications Calcitriol (Calcitriol 0.25 Mcg Capsule) 0.25 mcg PO BID@1200,1800 MADDY Stop: 07/09/22 17:59 Last Admin: 06/09/22 18:50 Dose: 0.25 mcg Documented By: TYLER Parenteral Electrolytes (Normosol-R) 1,000 mls @ 125 mls/hr IV .Q8H MADDY Stop: 07/09/22 14:59 Last Admin: 06/10/22 08:26 Dose: 125 mls/hr Documented By: Infusion: 06/10/22 08:26 Dose: 125 mls/hr Documented By: Admin: 06/10/22 01:10 Dose: 125 mls/hr Documented By: Infusion: 06/10/22 00:37 Dose: 125 mls/hr Documented By: Admin: 06/09/22 16:37 Dose: 125 mls/hr Documented By: TYLER Acetaminophen (Ofirmev) 1,000 mg in 100 mls @ 400 mls/hr IV Q8H PRN PRN Reason: Pain or Fever Stop: 06/12/22 16:32 Last Infusion: 06/10/22 01:34 Dose: 0 mls/hr Documented By: Admin: 06/10/22 01:08 Dose: 400 mls/hr Documented By: IBRAHIMA Hydrocortisone Sodium (Succinate 100 mg/ Syringe) 2 mls @ 4 mls/min IV Q8H MADDY Stop: 07/09/22 17:29 Last Admin: 06/10/22 08:28 Dose: 4 mls/min Documented By: Admin: 06/10/22 01:07 Dose: 4 mls/min Documented By: Admin: 06/09/22 18:50 Dose: 4 mls/min Documented By: TYLER Levothyroxine Sodium (Levothyroxine Sodium 125 Mcg Tablet) 125 mcg PO DAILYBB MADDY Stop: 07/10/22 06:29 Last Admin: 06/10/22 05:48 Dose: 125 mcg Documented By: IBRAHIMA Potassium Chloride (Potassium Chloride Crtab 20 Meq Tabcr) 20 meq PO BID MADDY Stop: 07/09/22 20:59 Last Admin: 06/10/22 08:28 Dose: 20 meq Documented By: Admin: 06/09/22 21:36 Dose: 20 meq Documented By: IBRAHIMA Thiamine HCl (Thiamine Hcl 100 Mg Tab) 100 mg PO QAM MADDY Stop: 07/10/22 08:59 Last Admin: 06/10/22 08:27 Dose: 100 mg Documented By: DYANA Discontinued Medications Hydrocortisone Sodium Succinate (Hydrocortisone Sod Succinate 100 Mg/2 Ml Vial) 100 mg IV NOW STA Stop: 06/09/22 12:01 Last Admin: 06/09/22 12:03 Dose: 100 mg Documented By: TYLER Sodium Chloride (Nss 1000ml) 2,000 mls @ 999 mls/hr IV .Q2H1M ONE Stop: 06/09/22 13:45 Last Infusion: 06/09/22 13:58 Dose: 0 mls/hr Documented By: Admin: 06/09/22 11:56 Dose: 999 mls/hr Documented By: TYLER Ceftriaxone Sodium (Rocephin) 2,000 mg in 70 mls @ 140 mls/hr IV NOW STA Stop: 06/09/22 12:14 Last Infusion: 06/09/22 12:29 Dose: 0 mls/hr Documented By: Admin: 06/09/22 11:56 Dose: 140 mls/hr Documented By: TYLER Ibuprofen (Ibuprofen 200 Mg Tab) 400 mg PO NOW STA Stop: 06/09/22 13:26 Last Admin: 06/09/22 13:36 Dose: 400 mg Documented By: [facility] Imaging Data Radiologist's Impression: Abdomen/Pelvis CT 06/09/22 11:45 CT OF THE ABDOMEN AND PELVIS WITHOUT CONTRAST CLINICAL HISTORY: Abdominal pain. Altered mental status. COMPARISON STUDY: CT of the abdomen and pelvis February 09, 2022. TECHNIQUE: Axial images of the abdomen and pelvis were obtained without IV contrast. Images were reviewed in the axial, sagittal, and coronal planes. Automated exposure control was utilized for the study. A dose lowering technique was utilized adhering to the principles of ALARA. FINDINGS: This exam is compromised given artifact and lack of contrast. There is no biliary ductal dilatation status post cholecystectomy. No pneumatosis, free air or portal venous gas is present. A small hiatal hernia is present. Unenhanced images of the liver, spleen, adrenal glands, kidneys and pancreas are normal. Apparent stranding adjacent to the pancreatic head is likely artifactual. Diverticulum of the third portion of the duodenum is noted. Is no hydronephrosis. No urinary calculi are identified. There is no evidence for a bowel obstruction. Note is made of colonic diverticulosis without evidence for acute diverticulitis. No fluid collection is identified to suggest an abscess. The appendix is normal. There is no lymphadenopathy. Images of the pelvis are degraded by streak artifact from right hip arthroplasty. Old L2 and L4 compression deformity. No acute fracture within the lumbar spine or pelvis. IMPRESSION: 1. Exam compromised given artifact and lack of contrast. 2. No urinary calculi or hydronephrosis. 3. No acute process within the abdomen or pelvis on unenhanced exam. 4. Colonic diverticulosis. No evidence for acute diverticulitis. No bowel obstruction. ACT 112: Negative or not required by law. Electronically signed by: Julio Casillas M.D. 06/09/2022 12:48 PM Chest X-Ray 06/09/22 11:45 XR chest 1V portable HISTORY: SEPSIS COMPARISON: Chest 02/09/2022. FINDINGS: No pneumothorax. No pleural effusions. There are low lung volumes with a few bibasilar linear densities likely representing subsegmental atelectasis. Otherwise, lungs are clear. No evidence for pulmonary edema. The cardiac silhouette remains mildly enlarged. Degenerative changes again noted within the shoulders. IMPRESSION: Stable mild cardiomegaly. Otherwise, no acute process within the chest ACT 112: Negative or not required by law. Electronically signed by: Rajinder Garay M.D. 06/09/2022 12:[address] 06/09/22 11:[address] DOSE: 2714.94 mGycm HISTORY: Altered mental status. Confusion. TECHNIQUE: Multiaxial CT images of the head were performed without the use of intravenous contrast. Automated exposure control was utilized for this study. A dose lowering technique was utilized adhering to the principles of ALARA. Comparison: Head CT 02/09/2022. Findings: The paranasal sinuses and mastoid air cells are clear. The calvarium and skull base are intact. There is no mass, hematoma, midline shift, acute infarct. White matter hypodensity is nonspecific but suggestive of microvascular ischemic change. The ventricles and sulci demonstrate mild age-related involutional changes. No change in the focal bifrontal encephalomalacia consistent with an old infarct, injury. Impression: No significant change compared to the prior study. No acute intracranial abnormality. ACT 112: Negative or not required by law. Electronically signed by: Rajinder Garay M.D. 06/09/2022 12:31 PM Discharge Plan Visit Data Chief Complaint: Unresponsive Stated Complaint: unresponsiveness ED Provider: Brennen Strickland Discharge Problem: Sepsis, Weakness, AMS (altered mental status), UTI (urinary tract infection) Patient Disposition: Admitted As Inpatient Discharge Instructions Interventions: ED Discharge Assessment Last Done: 06/09/22 16:35
[2022-06-09 12:07] LABS: Base Excess VBG 1.7 mEq/L; Basophils # (auto) 0.02 K/uL (0-0.2); Basophils % (auto) 0.3 %; Eosinophils # (auto) 0.01 K/uL (0-0.50); Eosinophils % (auto) 0.2 %; HCO3 VBG 24 mmol/L; Hematocrit (blood only) 35.6 % (34.1-44.9); Hemoglobin 11.8 g/dl (12.0-16.0); Immature Granulocytes # (auto) 0.05 K/uL (0.00-0.02); Immature Granulocytes % (auto) 0.8 %; Lymphocytes % (auto) 12.8 %; Mean Corpuscular Hemoglobin 29.9 pg (25.0-34.0); Mean Corpuscular Hgb Conc 33.1 g/dL (32.0-36.0); Mean Corpuscular Volume 90.1 fL (80.0-100.0); Mean Platelet Volume 9.2 fL (9.4-12.3); Monocytes # (auto) 0.22 K/uL (0.24-0.82); Monocytes % (auto) 3.5 %; Neutrophils # (auto) 5.17 K/uL (1.4-6.5); Neutrophils % (auto) 82.4 %; Oxygen Saturation VBG 75.6 %; PCO2 VBG 30 mmHg (38-50); PO2 VBG 38 mmHg; Platelet Count 272 K/uL (130-400); RDW Coefficient of Variation 13.2 % (11.5-14.5); RDW Standard Deviation 44.5 fL (36.4-46.3); Red Blood Count 3.95 M/uL (3.93-5.22); White Blood Count 6.27 K/ul (4.8-10.8); pH VBG 7.51 (7.36-7.41)
[2022-06-09 12:14] LABS: iSTAT Creatinine 1.5 mg/dl (0.6-1.3); iSTAT Hemoglobin 11.9 g/dl (12.0-16.0); iSTAT Ionized Calcium 1.16 mmol/l (1.12-1.32); iSTAT Potassium 3.7 mmol/L (3.3-5.0)
[2022-06-09 12:19] LABS: INR 2.6 (0.9-1.1); Partial Thromboplastin Ratio 1.6; Partial Thromboplastin Time 42.7 Seconds (21.0-31.0); Prothrombin Time 26.1 Seconds (9.0-12.0)
--- NOTE | 2022-06-09 12:27 | XRay Report ---
XR chest 1V portable HISTORY: SEPSIS COMPARISON: Chest 02/09/2022. FINDINGS: No pneumothorax. No pleural effusions. There are low lung volumes with a few bibasilar line ar densities likely representing subsegmental atelectasis. Otherwise, lungs are clear. No evidence fo r pulmonary edema. The cardiac silhouette remains mildly enlarged. Degenerative changes again noted w ithin the shoulders. IMPRESSION: Stable mild cardiomegaly. Otherwise, no acute process within the chest ACT 112: Negative or not required by law. Electronically signed by: Rajinder Garay M.D. 06/09/2022 12:25 PM
[2022-06-09 12:28] LABS: Albumin Globulin Ratio 0.9 (0.9-2); Albumin Level 3.6 gm/dl (3.4-5.0); BUN Creatinine Ratio 14.7 (10-20); Bilirubin,Total 0.7 mg/dl (0.2-1.0); Creatinine Clr Calc Pharmacy 44.7 ml/min; Est GFR (African American) 42.9 ml/min; Globulin 3.8 gm/dl (2.5-4.0); Magnesium 1.7 mg/dl (1.7-2.4); Potassium 3.6 mmol/L (3.5-5.1); Total Protein 7.4 gm/dl (6.0-8.3)
[2022-06-09 12:33] LABS: Troponin I High Sensitivity 15.5 pg/ml (0-14)
--- NOTE | 2022-06-09 12:33 | CT Scan Report ---
HEAD CT NONCONTRAST CT DOSE: 2714.94 mGycm HISTORY: Altered mental status. Confusion. TECHNIQUE: Multiaxial CT images of the head were performed without the use of intravenous contrast. A utomated exposure control was utilized for this study. A dose lowering technique was utilized adheri ng to the principles of ALARA. Comparison: Head CT 02/09/2022. Findings: The paranasal sinuses and mastoid air cells are clear. The calvarium and skull base are int act. There is no mass, hematoma, midline shift, acute infarct. White matter hypodensity is nonspecifi c but suggestive of microvascular ischemic change. The ventricles and sulci demonstrate mild age-rela mateusz involutional changes. No change in the focal bifrontal encephalomalacia consistent with an old in farct, injury. Impression: No significant change compared to the prior study. No acute intracranial abnormality. ACT 112: Negative or not required by law. Electronically signed by: Rajinder Garay M.D. 06/09/2022 12:31 PM
--- NOTE | 2022-06-09 12:50 | CT Scan Report ---
CT OF THE ABDOMEN AND PELVIS WITHOUT CONTRAST CLINICAL HISTORY: Abdominal pain. Altered mental status. COMPARISON STUDY: CT of the abdomen and pelvis February 09, 2022. TECHNIQUE: Axial images of the abdomen and pelvis were obtained without IV contrast. Images were revi ewed in the axial, sagittal, and coronal planes. Automated exposure control was utilized for the emmy dy. A dose lowering technique was utilized adhering to the principles of ALARA. FINDINGS: This exam is compromised given artifact and lack of contrast. There is no biliary ductal di latation status post cholecystectomy. No pneumatosis, free air or portal venous gas is present. A sma ll hiatal hernia is present. Unenhanced images of the liver, spleen, adrenal glands, kidneys and panc reas are normal. Apparent stranding adjacent to the pancreatic head is likely artifactual. Diverticul um of the third portion of the duodenum is noted. Is no hydronephrosis. No urinary calculi are identi fied. There is no evidence for a bowel obstruction. Note is made of colonic diverticulosis without ev idence for acute diverticulitis. No fluid collection is identified to suggest an abscess. The appendi x is normal. There is no lymphadenopathy. Images of the pelvis are degraded by streak artifact from r ight hip arthroplasty. Old L2 and L4 compression deformity. No acute fracture within the lumbar spine or pelvis. IMPRESSION: 1. Exam compromised given artifact and lack of contrast. 2. No urinary calculi or hydronephrosis. 3. No acute process within the abdomen or pelvis on unenhanced exam. 4. Colonic diverticulosis. No evidence for acute diverticulitis. No bowel obstruction. ACT 112: Negative or not required by law. Electronically signed by: Julio Casillas M.D. 06/09/2022 12:48 PM
[2022-06-09] MEDS ORDERED: IBUPROFEN 200 MG TAB PO STA (13:25)
--- NOTE | 2022-06-09 13:48 | History & Physical Report ---
Date of Service June 09, 2022 Assessment & Plan (1) UTI (urinary tract infection): Plan: - Based on UA with nitrites and leukocyte esterase, WBC, bacteria. Patient has a history of UTIs, is typically asymptomatic until she presents very fatigued and lethargic, similar to today. Previously has grown Klebsiella and E coli in urine in the past, both sensitive to Rocephin. - It should be noted that UA + culture were collected after Rocephin given in ED. - Continue Rocephin for now and follow urine, blood cultures. - IV Tylenol for pain and fever. - Holding oxybutynin. (2) Sepsis: Plan: - With sepsis with respiratory alkalosis on ABG, fever, tachypnea, tachycardia, acute metabolic encephalopathy, secondary to UTI. - Rocephin for now based on prior cultures. - Follow blood and urine cultures. - WBC 6.27, lactate 1.2, PCT 0.55 - Hemodynamically stable, MAP > 65 on arrival and maintaining this prior to supportive IVF. - Stress dose steroids 100 mg IV q8h. (3) ZEENAT (acute kidney injury): Plan: - Creatinine 1.43 today, baseline seems to be 1.01.2. - UA with evidence of infection and hyaline casts, suspect ZEENAT is 2/2/ to UTI/sepsis. - Received 2L NS bolus in ED, will continue maintenance fluids and recheck BMP with a.m. labs. 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 - Continue levothyroxine 125 mcg daily. - Convert oral hydrocortisone to stress dose IV Cortef 100 mg IV every 8 hours (5) SIADH (syndrome of inappropriate ADH production): Plan: - History of, sodium 133 today. - Limit water intake to only when thirsty, strict I and O's. (6) Hypertension: Plan: - Hold amlodipine 10 mg daily at least for today given low-normotensive pressures in setting of UTI/sepsis. (7) Dyslipidemia: Plan: - No current medications. (8) History of recurrent deep vein thrombosis (DVT): Plan: - Continue on Coumadin-- 2.5 mg --, 5 mg remainder of days. - INR 2.6 today. Monitor daily. If patient is subtherapeutic tomorrow and not tolerating PO meds, can convert to Lovenox. (9) Anemia: Plan: - Hgb 11.8 today, at patient's baseline. No evidence of or concern for acute bleed today. - Daily CBC. (10) Mixed stress and urge urinary incontinence: Plan: - Hold oxybutynin 5 mg daily due to UTI. (11) Folate deficiency: Plan: - Continue folic acid supplementation 400 mcg daily when patient is alert enough for PO meds. (12) Thiamine deficiency: Plan: - Continue thiamine supplementation 100 mg daily when patient is alert enough for PO meds. (13) Osteopenia: Plan: - Received a Reclast injection yesterday here in [facility]. (14) Vitamin D deficiency: Plan: - Continue calcitrol0.25 g BID when patient is alert enough for PO meds. (15) Vitamin B12 deficiency: Plan: - Continue B12 supplementation when patient is alert enough for PO meds. (16) Depression: Plan: - Notes history of; no acute needs or current medications for this. Plan - Admit to PCU. - SCDs, Coumadin for VTE ppx. - Full Code. History of Present Illness Chief Complaint: Unresponsive this morning Primary Care Provider: MARCIA Rubio Lucia Schulz is a 71-year-old female with a past medical history significant for hypertension, panhypopituitarism s/p resection of pituitary gland in 1994, DREAD DH, GERD, anemia, recurrent DVT on Coumadin, depression, and anxiety who presents today via EMS after being found at home unresponsive by her . Since arrival, patient become more alert, however history is still slightly limited due to confusion, therefore it is obtained from ED provider and family. Per , patient was at family reunion this past weekend and had been feeling well. No sick contacts at the reunion or known COVID exposures. She did have a Reclast injection at the [facility] unit. She had some mild low back pain afterwards, which she was told is a side effect of the infusion. She taken Tylenol and went to bed in her normal state of health. She has not complained of fever chills, body aches, chest pain, shortness of breath, cough, abdominal pain, nausea, vomiting, dysuria, increased urinary frequency, hesitancy, or hematuria, diarrhea, or constipation. She does have a history of UTIs, however typically does not experience urinary symptoms and presents similarly to how she is today when they occur. On initial presentation, she was febrile at 101.3 F, HR 113, RR 28, normotensive and SPO2 >92% on RA. Labs significant for VBG pH 7.51, PCO2 30, PO2 38, bicarb 24. Sodium slightly low 133, creatinine 1.4 (baseline 1.0 - 1.2), hs Trop 15.5. There is no leukocytosis and lactate is 1.2, however procalcitonin slightly elevated 0.55. Her hemoglobin is 11.8, consistent with her baseline. Head CT, CXR, CT A/P all unrevealing for acute disease process. COVID test was negative. Allergies Allergy/AdvReac Type Severity Reaction Status Date / Time Penicillins Allergy Mild hives Verified 06/08/22 11:25 sertraline AdvReac Intermediate acting Verified 06/08/22 11:25 funny tramadol AdvReac Intermediate Hyponatremi Verified 06/08/22 11:25 a Home Medications Medication Instructions Recorded Confirmed Type Wheeled Walker #1 ea 04/17/20 06/09/22 Rx thiamine HCl (vitamin B1) 100 mg 100 mg PO QAM #30 tabs 12/24/20 06/09/22 Rx tablet (Vitamin B-1) hydrocortisone 10 mg tablet 10 mg PO .COMPLEX 90 days #300 tabs 07/07/21 06/09/22 Rx acetaminophen 500 mg tablet 1,000 mg PO Q6H PRN Pain 02/09/22 06/09/22 History (Tylenol Extra Strength) cyanocobalamin (vitamin B-12) 500 2,000 mcg PO DAILY@1200 02/09/22 06/09/22 History mcg tablet folic acid 400 mcg tablet 400 mcg PO DAILY@1200 02/09/22 06/09/22 History warfarin 5 mg tablet See Rx Instructions .Route .COMPLEX 02/09/22 06/09/22 History potassium chloride 20 mEq 20 meq PO BID #60 tabs 03/02/22 06/09/22 Rx tablet,extended release(part/cryst) (Klor-Con M) amlodipine 5 mg tablet (Norvasc) 10 mg PO DAILY #180 tabs 03/09/22 06/09/22 Rx levothyroxine 125 mcg tablet 125 mcg PO DAILY #30 tabs 04/13/22 06/09/22 Rx warfarin 5 mg tablet 5 mg PO SUMOWEFR #90 tabs 04/15/22 06/09/22 Rx oxybutynin chloride 5 mg 5 mg PO DAILY #90 tabs 04/20/22 06/09/22 Rx tablet,extended release 24 hr (Ditropan XL) calcitriol 0.25 mcg capsule 0.25 mcg PO BID #60 caps 06/03/22 06/09/22 Rx Past Med/Surg History Medical History Acute alteration in mental status Acute kidney injury Acute UTI Anemia Anticoagulated on Coumadin Anxiety Bilateral lower extremity edema Due water retention- cannot take diuretics due to urinary frequency Central hypothyroidism Depression DVT (deep venous thrombosis) X 2-WAS PLACED ON WARFARIN "YRS AGO"-NO ISSUES SINCE PER PT Dyslipidemia Folate deficiency Gastroenteritis Growth hormone deficiency Hyperlipidemia NO MEDS CURRENTLY Hypertension Hypokalemia Hyponatremia Hypopituitarism Idiopathic polyneuropathy IFG (impaired fasting glucose) Lumbar compression fracture Minimal endplate deformity Norovirus Obesity Osteopenia 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 Follows with neurosurgery PRN. Last seen by endo January 2020. Pt denies recent issues Secondary adrenal insufficiency Short-term memory loss SIADH (syndrome of inappropriate ADH production) SOB (shortness of breath) on exertion 1 FLIGHT Thiamine deficiency Urinary, incontinence, stress female Vitamin B12 deficiency Vitamin D deficiency Surgical History History of breast biopsy LEFT-BENIGN History of cataract surgery R/L History of colonoscopy (05/31/18) Dr. Gonzalez, sigmoid diverticulosis, 4 mm sigmoid tubular adenoma polyp removed, recheck 5 years History of right hip replacement (~04/2020) History of tubal ligation Status post transsphenoidal pituitary resection 1993 [facility] Family History Father Deep vein thrombosis of lower extremity Peripheral artery disease Aunt Breast cancer Grandmother (Paternal) Coronary heart disease Grandfather (Paternal) Coronary heart disease Mother Schizophrenia Denies family history of Ovarian cancer Prostate cancer Myocardial infarction Colorectal cancer Social History Smoking Status: Never smoker Second Hand Exposure: No (N/a); Hx Alcohol Use: No Hx Substance Use: No (None) Preferred Language: Romansh Communication Ability: Effective Visual Impairment: No Limitations Hearing Ability: Normal Wheat Buyer Required: Yes Beliefs That Will Affect Care: None marital status: Current Living Situation: Spouse current occupational status: retired How many Children do You have: 2 Feels Safe at Home: Yes Dental Care, Regularly: No Physical Activity Frequency: Does not Exercise Seatbelt Use: sometimes Assistive Devices: Walker Review of Systems Review of Systems: Unobtainable due to cognitive status Physical Exam Physical Exam: General: drowsy but arousable, alert to self, place; speech is slow but clear Head: Normocephalic, atraumatic ENT: PERRL, EOMI, no pharyngeal exudate, mucous membranes moist Chest: Clear to auscultation, on room air, no adventitious breath sounds Cardiac: Regular rate and rhythm, no murmur, no JVD, normal peripheral pulses, good capillary refill Abdominal: NABS x 4 quadrants, soft, nontender to palpation, no rebound, guarding or tenderness Extremities: Normal inspection, no peripheral edema or erythema, calfs nontender to palpation Psych: Normal mood and affect Neuro: AAO x 2, strength intact bilaterally and rated 5/5, no motor deficits, speech is clear, no peripheral sensory deficits Skin: no rash or erythema Results & Data Results & Data ([facility]) Vital Signs (Past 12 Hours) Vital Signs Temp Pulse Pulse Resp BP BP Pulse Ox 06/09/22 13:00 90 32 H 122/51 L 92 06/09/22 13:00 32 H 92 06/09/22 12:45 93 H 34 H 121/53 L 93 06/09/22 12:30 101 H 23 121/58 L 94 06/09/22 12:30 23 94 06/09/22 11:30 93 06/09/22 12:00 105 H 25 H 112/61 95 06/09/22 11:45 96 H 26 H 138/66 93 06/09/22 11:45 93 06/09/22 11:45 26 H 93 06/09/22 11:45 96 H 26 H 138/66 93 06/09/22 11:42 38.5 C H 113 H 28 H 138/66 97 O2 Del Method O2 Flow Rate 06/09/22 13:00 Room Air 06/09/22 13:00 Room Air 06/09/22 12:45 Room Air 06/09/22 12:30 Room Air 06/09/22 12:30 Room Air 06/09/22 11:30 Room Air 0 06/09/22 12:00 Room Air 06/09/22 11:45 Room Air 06/09/22 11:45 Room Air 06/09/22 11:45 Room Air 06/09/22 11:45 Room Air 06/09/22 11:42 Room Air Diagnostic Findings Abdomen/Pelvis CT 06/09/22 11:45 CT OF THE ABDOMEN AND PELVIS WITHOUT CONTRAST CLINICAL HISTORY: Abdominal pain. Altered mental status. COMPARISON STUDY: CT of the abdomen and pelvis February 09, 2022. TECHNIQUE: Axial images of the abdomen and pelvis were obtained without IV contrast. Images were reviewed in the axial, sagittal, and coronal planes. Automated exposure control was utilized for the study. A dose lowering technique was utilized adhering to the principles of ALARA. FINDINGS: This exam is compromised given artifact and lack of contrast. There is no biliary ductal dilatation status post cholecystectomy. No pneumatosis, free air or portal venous gas is present. A small hiatal hernia is present. Unenhanced images of the liver, spleen, adrenal glands, kidneys and pancreas are normal. Apparent stranding adjacent to the pancreatic head is likely artifactual. Diverticulum of the third portion of the duodenum is noted. Is no hydronephrosis. No urinary calculi are identified. There is no evidence for a bowel obstruction. Note is made of colonic diverticulosis without evidence for acute diverticulitis. No fluid collection is identified to suggest an abscess. The appendix is normal. There is no lymphadenopathy. Images of the pelvis are degraded by streak artifact from right hip arthroplasty. Old L2 and L4 compression deformity. No acute fracture within the lumbar spine or pelvis. IMPRESSION: 1. Exam compromised given artifact and lack of contrast. 2. No urinary calculi or hydronephrosis. 3. No acute process within the abdomen or pelvis on unenhanced exam. 4. Colonic diverticulosis. No evidence for acute diverticulitis. No bowel obstruction. ACT 112: Negative or not required by law. Electronically signed by: Julio Casillas M.D. 06/09/2022 12:48 PM Chest X-Ray 06/09/22 11:45 XR chest 1V portable HISTORY: SEPSIS COMPARISON: Chest 02/09/2022. FINDINGS: No pneumothorax. No pleural effusions. There are low lung volumes with a few bibasilar linear densities likely representing subsegmental atelectasis. O therwise, lungs are clear. No evidence for pulmonary edema. The cardiac silhouette remains mildly enlarged. Degenerative changes again noted within the shoulders. IMPRESSION: Stable mild cardiomegaly. Otherwise, no acute process within the chest ACT 112: Negative or not required by law. Electronically signed by: Rajinder Garay M.D. 06/09/2022 12:[address] 06/09/22 11:[address] DOSE: 2714.94 mGycm HISTORY: Altered mental status. Confusion. TECHNIQUE: Multiaxial CT images of the head were performed without the use of intravenous contrast. Automated exposure control was utilized for this study. A dose lowering technique was utilized adhering to the principles of ALARA. Comparison: Head CT 02/09/2022. Findings: The paranasal sinuses and mastoid air cells are clear. The calvarium and skull base are intact. There is no mass, hematoma, midline shift, acute infarct. White matter hypodensity is nonspecific but suggestive of microvascular ischemic change. The ventricles and sulci demonstrate mild age-related involutional changes. No change in the focal bifrontal encephalomalacia consistent with an old infarct, injury. Impression: No significant change compared to the prior study. No acute intracranial abnormality. ACT 112: Negative or not required by law. Electronically signed by: Rajinder Garay M.D. 06/09/2022 12:31 PM ECG Additional Comments: Sinus tachycardia Left axis deviation Low voltage QRS Inferior infarct , age undetermined Cannot rule out Anterior infarct (cited on or before 09-JUN-2022) Abnormal ECG When compared with ECG of 09-FEB-2022 11:55, No significant change was found. Code Status & VTE Plan Code Status Full Code. Supervising Physician Co-Signing Physician Notes PA Supervision Note: I personally saw and examined the patient. I verified all toussaint points and agree with COLBY Ruelas with the following exceptions and/or additions: This pt is a 71 yo female wiht a h/o panhypopituitarism, SIADH, HTN, DVT on coumadin, here with fevers, decreased mentation, found ot have UTI and sepsis. I saw her after receiving IVFs, antibiotics, and IV hydrocortisone. By this time, she was awake and alert, eating dinner, feeling much better. She denies headache, sore throat, cough, SOB, chest pain, abd pain. No urinary symptoms, no diarrhea. History and ROS reviewed O- Vitals reviewed Gen: [AAOx3, NAD] HEENT: [anicteric sclerae, EOMI] CV: [RRR no mgr nl S1S2] Pulm: [CTAB no wcr] Abd: [+BS soft NT ND no masses or hernias] Ext: [no edema, 2+ DP pulses] Skin: [no rashes, warm/dry] Neuro: [full strength throughout] Labs, Rads, and ECG reviewed A/P-71 yo female w/ history as above, here with sepsis, UTI, acute metabolic encephalopathy. Improving with stress dosed steroids, antibiotics, IVFs -continue rocephin follow urine and blood cultures checked COVID/FLU/RSV PCR and remains negative -continue IV hydrocortisone PG Care Time/CCT Total # of Minutes Spent Total Time Spent with Patient: Total time spent is greater than 50% in coordination of care (as documented) at patient's floor/unit and/or counseling patient: Coding Level of Care Code 41804 Initial Inpt Care Lvl 3 Diagnoses UTI (urinary tract infection) N39.0 Sepsis A41.9 ZEENAT (acute kidney injury) N17.9 Hypopituitarism E23.0 SIADH (syndrome of inappropriate ADH production) E22.2 Hypertension I10 Dyslipidemia E78.5 History of recurrent deep vein thrombosis (DVT) Z86.718 Anemia D64.9 Mixed stress and urge urinary incontinence N39.46 Folate deficiency E53.8 Thiamine deficiency E51.9 Osteopenia M85.80 Vitamin D deficiency E55.9 Vitamin B12 deficiency E53.8 Depression F32.9
--- NOTE | 2022-06-09 15:04 | Electrocardiogram Report ---
Test Reason : Blood Pressure : / mmHG Vent. Rate : 113 BPM Atrial Rate : 113 BPM P-R Int : 196 ms QRS Dur : 070 ms QT Int : 304 ms P-R-T Axes : 029 -36 -16 degrees QTc Int : 416 ms Poor data quality, interpretation may be adversely affected Sinus tachycardia Left axis deviation Low voltage QRS Inferior infarct , age undetermined Cannot rule out Anterior infarct (cited on or before 09-JUN-2022) Abnormal ECG When compared with ECG of 09-FEB-2022 11:55, No significant change was found Confirmed by Sylvain Vail ([id number]) on 06/09/2022 3:04:12 PM Referred By: REFERRED SELF Confirmed By:Sylvain Vail
[2022-06-09 15:23] LABS: Appearance Urine Clear (Clear); Bacteria Urine Automated 4+ (Negative); Bilirubin Urine Negative (Negative); Blood Urine 2+ (Negative); Color Urine Yellow; Epithelial Cell Urine Auto >30 /lpf (0-5); Glucose Urine UA Negative (Negative); Ketones Urine Negative (Negative); Leukocyte Esterase Urine Trace (Negative); Nitrite Urine Positive (Negative); Protein Urine Negative (Negative); Specific Gravity Urine 1.013 (1.000-1.030); Urobilinogen Urine Negative (Negative)
[2022-06-09] MEDS ORDERED: ONDANSETRON INJ 2 MG/ML 2 ML VIAL IV PRN (16:33)
[2022-06-09] MEDS ORDERED: POLYETHYLENE (MIRALAX) 17 GM PACK PO PRN (16:33)
[2022-06-09] MEDS ORDERED: ACETAMINOPHEN 1,000 MG/100 ML VIAL IV PRN (16:33)
[2022-06-09] MEDS: NORMOSOL-R 1,000 ML IV SCH (16:37)
[2022-06-09] MEDS ORDERED: HYDROCORTISONE SOD SUCCINATE 100 MG/2 ML VIAL IV SCH (17:00)
[2022-06-09 18:44] LABS: Influenza A virus by PCR Negative (Neg); Influenza B virus by PCR Negative (Neg); RSV by PCR Negative (Neg); SARS CoV2 RNA(COVID-19) InHosp NEGATIVE (Negative)
[2022-06-09] MEDS: CALCITRIOL 0.25 MCG CAPSULE PO SCH (18:50)
[2022-06-09] MEDS: HYDROCORTISONE SOD 100 MG in SYRINGE 0 ML IV SCH (18:50)
[2022-06-09] MEDS: POTASSIUM CHLORIDE CRTAB 20 MEQ TABCR PO SCH (21:36)
[2022-06-10] MEDS: HYDROCORTISONE SOD 100 MG in SYRINGE 0 ML IV SCH ×3 (01:07→16:29)
[2022-06-10] MEDS: NORMOSOL-R 1,000 ML IV SCH ×4 (01:10→23:52)
[2022-06-10] MEDS: LEVOTHYROXINE SODIUM 125 MCG TABLET PO SCH (05:48)
[2022-06-10 05:58] LABS: Hematocrit (blood only) 30.4 % (34.1-44.9); Hemoglobin 10.4 g/dl (12.0-16.0); Mean Corpuscular Hemoglobin 30.1 pg (25.0-34.0); Mean Corpuscular Hgb Conc 34.2 g/dL (32.0-36.0); Mean Corpuscular Volume 88.1 fL (80.0-100.0); Mean Platelet Volume 9.6 fL (9.4-12.3); Platelet Count 248 K/uL (130-400); RDW Coefficient of Variation 13.2 % (11.5-14.5); RDW Standard Deviation 41.8 fL (36.4-46.3); Red Blood Count 3.45 M/uL (3.93-5.22); White Blood Count 4.96 K/ul (4.8-10.8)
[2022-06-10 06:09] LABS: INR 1.9 (0.9-1.1); Prothrombin Time 19.5 Seconds (9.0-12.0)
[2022-06-10 06:23] LABS: Basophils # (auto) 0.01 K/uL (0-0.2); Basophils % (auto) 0.2 %; Echinocytes 1+; Immature Granulocytes # (auto) 0.04 K/uL (0.00-0.02); Immature Granulocytes % (auto) 0.8 %; Lymphocytes # (auto) 0.25 K/uL (1.2-3.4); Monocytes # (auto) 0.12 K/uL (0.24-0.82); Monocytes % (auto) 2.4 %; Neutrophils # (auto) 4.54 K/uL (1.4-6.5); Neutrophils % (auto) 91.6 %
[2022-06-10 06:29] LABS: Calcium 7.8 mg/dl (8.5-10.1); Creatinine Clr Calc Pharmacy 53.7 ml/min; Est GFR (African American) 57.6 ml/min; Est GFR (Non-African American) 49.7 ml/min; Phosphorus 2.9 mg/dl (2.5-4.9); Potassium 3.7 mmol/L (3.5-5.1)
[2022-06-10 06:42] LABS: Folate (Folic Acid) > 22.30 ng/ml (>5.38)
[2022-06-10 06:43] LABS: Vitamin B12 384 pg/ml (180-914)
[2022-06-10] MEDS: THIAMINE HCL 100 MG TAB PO SCH (08:27)
[2022-06-10] MEDS: POTASSIUM CHLORIDE CRTAB 20 MEQ TABCR PO SCH ×2 (08:28→20:51)
[2022-06-10] MEDS ORDERED: cefTRIAXone SODIUM 1,000 MG in DEXTROSE 5% 50 ML IV SCH (09:00)
[2022-06-10 09:50] LABS: A calco-baum cmplx NotReported Not Detected (NotDetected); Bact fragilis Not Reported Not Detected (NotDetected); C auris Not Reported Not Detected (NotDetected); Calbicans Not Reported Not Detected (NotDetected); Candida glabrata Not Reported Not Detected (NotDetected); Candida krusei Not Reported Not Detected (NotDetected); Cneoformans/gatti Not Reported Not Detected (NotDetected); Cparapsilosis Not Reported Not Detected (NotDetected); Ctropicalis Not Reported Not Detected (NotDetected); E cloacae compx Not Reported Not Detected (NotDetected); Efaecalis Not Reported Not Detected (NotDetected); Efaecium Not Reported Not Detected (NotDetected); Enterobacterales Not Reported Not Detected (NotDetected); Escherichia coli Not Reported Not Detected (NotDetected); H influenzae Not Reported Not Detected (NotDetected); K aerogenes Not Reported Not Detected (NotDetected); Koxytoca Not Reported Not Detected (NotDetected); Kpneumoniae grp Not Reported Not Detected (NotDetected); Lmonocyt Not Reported Not Detected (NotDetected); N meningitidis Not Reported Not Detected (NotDetected); P aeruginosa Not Reported Not Detected (NotDetected); Proteus spp Not Reported Not Detected (NotDetected); Salmonella spp Not Reported Not Detected (NotDetected); Smarcescens Not Reported Not Detected (NotDetected); Staph lugdunensis Not Reported Not Detected (NotDetected); Staph spp. Not Reported DETECTED (NotDetected); Staphaureus Not Reported Not Detected (NotDetected); Staphepi Not Reported DETECTED (NotDetected); Staphylococcus spp. DETECTED (NotDetected); Stenmaltophilia Not Reported Not Detected (NotDetected); Strep agal(GrpB) Not Reported Not Detected (NotDetected); Strep pneum Not Reported Not Detected (NotDetected); Strep pyog (GrpA) Not Reported Not Detected (NotDetected); Strep spp Not Reported Not Detected (NotDetected); mecAC Resistant Gene DETECTED (NotDetected)
[2022-06-10 10:12] LABS: Staphylococcus epidermidis DETECTED (NotDetected)
[2022-06-10] MEDS ORDERED: CYANOCOBALAMIN (B-12) 500 MCG TABLET PO SCH (12:00)
[2022-06-10] MEDS: FOLIC ACID 400 MCG TAB PO SCH (12:06)
[2022-06-10] MEDS: cefTRIAXone SODIUM 2,000 MG in DEXTROSE 5% 50 ML IV SCH (12:06)
[2022-06-10] MEDS: CALCITRIOL 0.25 MCG CAPSULE PO SCH ×2 (12:06→16:29)
[2022-06-10] MEDS ORDERED: WARFARIN SOD 5 MG TAB PO SCH (16:00)
--- NOTE | 2022-06-10 19:09 | Hospitalist Progress Note ---
Date of Service June 10, 2022 Assessment & Plan (1) UTI (urinary tract infection): Plan: - Presumptive UTI as cause of fever/sepsis syndromediscussed with patient and quite frankly it is very oddparticularly given that she is now of sound mind, that she does not have any urinary symptoms, but with no other clear source of infection and urine culture showing gram-negative rodshave to assume this may be the source. Most importantly, she is improving, continue current antibiotics pending cultures and pending further improvement. (2) Sepsis: Plan: - With sepsis with respiratory alkalosis on ABG, fever, tachypnea, tachycardia, acute metabolic encephalopathy, as above noted most presumably due to UTI. - Rocephin for now based on prior cultures. -Anticipate improvementfollow cultureshopefully home on p.o. antibiotics tomorrow. 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 - Continue levothyroxine 125 mcg daily. -Was on stress dose steroidscan resume regular dosing (5) SIADH (syndrome of inappropriate ADH production): Plan: - History of, sodium improved (6) Hypertension: Plan: - Holding amlodipine 10 mg daily at least for today given low-normotensive pressures in setting of UTI/sepsis. (7) Dyslipidemia: Plan: - No current medications. (8) History of recurrent deep vein thrombosis (DVT): Plan: - Continue on Coumadin-- 2.5 mg , 5 mg remainder of days. - INR 21.9 today. Monitor daily. Anticipate will rise with Coumadin plus antibiotics (9) Anemia: Plan: - No signs or symptoms of blood loss (10) Mixed stress and urge urinary incontinence: Plan: - Hold oxybutynin 5 mg daily due to UTI. (11) Folate deficiency: Plan: - Continue folic acid supplementation 400 mcg daily when patient is alert enough for PO meds. B12 borderline - on PO supplement - outpt f/u (12) Thiamine deficiency: Plan: - Continue thiamine supplementation 100 mg daily when patient is alert enough for PO meds. (13) Osteopenia: Plan: - Received a Reclast injection yesterday here in [facility]. (14) Vitamin D deficiency: Plan: - Continue calcitrol0.25 g BID when patient is alert enough for PO meds. (15) Vitamin B12 deficiency: Plan: - Continue B12 supplementation when patient is alert enough for PO meds. outpt f/u ?IM - since level still only ~380 despite PO supplementation (16) Depression: Plan: - Notes history of; no acute needs or current medications for this. Plan - stable for med/surg - hopefully home tomorrow Admission and Anticipated Discharge Date Admission Date: June 09, 2022 Subjective Feeling better acting like herself no longer confused no longer febrile. She still denies any dysuria or other urinary symptoms, although she does note that she has chronic incontinence and wears a pad. present at the bedside, answered all questions to the best my ability and to their satisfaction. Review of Systems Review of Systems: All systems reviewed & are unremarkable except as noted in HPI & below Physical Exam Physical Exam: In general she is awake and alert pleasant no distress. HEENT normocephalic atraumatic mucous membranes moist. Breathing unlabored no accessory muscle use good effort. Skin shows no rashes no pallor or icterus. Neuro without focal deficits. Results & Data Results & Data ([facility]) Vital Signs (Past 12 Hours) Vital Signs Temp Pulse Pulse Resp BP BP Pulse Ox 06/10/22 18:21 98 06/10/22 17:39 06/10/22 17:30 98.6 F 83 20 152/71 H 98 06/10/22 14:42 98.4 F 80 19 133/70 99 06/10/22 11:15 98.1 F 72 20 124/69 98 06/10/22 08:00 97.5 F L 73 20 108/67 98 O2 Del Method 06/10/22 18:21 06/10/22 17:39 Room Air 06/10/22 17:30 Room Air 06/10/22 14:42 Room Air 06/10/22 11:15 Room Air 06/10/22 08:00 Room Air PG Care Time/CCT Total # of Minutes Spent Total Time Spent with Patient: Total time spent is greater than 50% in coordination of care (as documented) at patient's floor/unit and/or counseling patient: Coding Level of Care Code 58211 Subseq Hosp Care Lvl 3 Diagnoses UTI (urinary tract infection) N39.0 Sepsis A41.9 ZEENAT (acute kidney injury) N17.9 Hypopituitarism E23.0 SIADH (syndrome of inappropriate ADH production) E22.2 Hypertension I10 Dyslipidemia E78.5 History of recurrent deep vein thrombosis (DVT) Z86.718 Anemia D64.9 Mixed stress and urge urinary incontinence N39.46 Folate deficiency E53.8 Thiamine deficiency E51.9 Osteopenia M85.80 Vitamin D deficiency E55.9 Vitamin B12 deficiency E53.8 Depression F32.9
[2022-06-11] MEDS: LEVOTHYROXINE SODIUM 125 MCG TABLET PO SCH (06:12)
[2022-06-11] MEDS: POTASSIUM CHLORIDE CRTAB 20 MEQ TABCR PO SCH (07:56)
[2022-06-11] MEDS: THIAMINE HCL 100 MG TAB PO SCH (07:56)
[2022-06-11] MEDS ORDERED: HYDROCORTISONE 10 MG TAB PO SCH ×2 (09:00→21:00)
[2022-06-11 10:49] LABS: INR 2.1 (0.9-1.1); Prothrombin Time 21.4 Seconds (9.0-12.0)
[2022-06-11] MEDS: cefTRIAXone SODIUM 2,000 MG in DEXTROSE 5% 50 ML IV SCH (11:29)
[2022-06-11] MEDS: FOLIC ACID 400 MCG TAB PO SCH (11:30)
[2022-06-11] MEDS: NORMOSOL-R 1,000 ML IV SCH (12:02)
[2022-06-11] MEDS: CALCITRIOL 0.25 MCG CAPSULE PO SCH (12:17)
[2022-06-11] MEDS ORDERED: WARFARIN SOD 5 MG TAB PO SCH (16:00)
--- NOTE | 2022-06-11 18:50 | Discharge Summary ---
Date of Service June 11, 2022 Admission HPI Per Admitting Provider Lucia Schulz is a 71-year-old female with a past medical history significant for hypertension, panhypopituitarism s/p resection of pituitary gland in 1994, SIADH, GERD, anemia, recurrent DVT on Coumadin, depression, and anxiety who presents today via EMS after being found at home unresponsive by her . Since arrival, patient become more alert, however history is still slightly limited due to confusion, therefore it is obtained from ED provider and family. Per , patient was at family reunion this past weekend and had been feeling well. No sick contacts at the reunion or known COVID exposures. She did have a Reclast injection at the [facility] unit. She had some mild low back pain afterwards, which she was told is a side effect of the infusion. She taken Tylenol and went to bed in her normal state of health. She has not complained of fever chills, body aches, chest pain, shortness of breath, cough, abdominal pain, nausea, vomiting, dysuria, increased urinary frequency, hesitancy, or hematuria, diarrhea, or constipation. She does have a history of UTIs, however typically does not experience urinary symptoms and presents similarly to how she is today when they occur. On initial presentation, she was febrile at 101.3 F, HR 113, RR 28, normotensive and SPO2 >92% on RA. Labs significant for VBG pH 7.51, PCO2 30, PO2 38, bicarb 24. Sodium slightly low 133, creatinine 1.4 (baseline 1.0 - 1.2 ), hs Trop 15.5. There is no leukocytosis and lactate is 1.2, however procalcitonin slightly elevated 0.55. Her hemoglobin is 11.8, consistent with her baseline. Head CT, CXR, CT A/P all unrevealing for acute disease process. COVID test was negative. Principal Diagnosis Sepsispresumed UTI, ZEENAT. Improving Discharge Exam In general she is awake and alert pleasant no distress. HEENT normocephalic atraumatic mucous membranes moist. Breathing unlabored no accessory muscle use good effort. Skin shows no rashes no pallor or icterus. Neuro without focal deficits. Discharge Data Allergies Allergy/AdvReac Type Severity Reaction Status Date / Time Penicillins Allergy Mild hives Verified 06/08/22 11:25 sertraline AdvReac Intermediate acting Verified 06/08/22 11:25 funny tramadol AdvReac Intermediate Hyponatremi Verified 06/08/22 11:25 a Consultations 06/09/22 13:25 ED Decision to Admit Stat Ordered Studies 06/09/22 11:45 CT abd pelvis wo con Stat CT head/brain wo con Stat Hospital Course (1) UTI (urinary tract infection): - Presumptive UTI as cause of fever/sepsis syndromediscussed with patient and quite frankly it is very oddparticularly given that she is now of sound mind, that she does not have any urinary symptoms, but with no other clear source of infection and urine culture showing gram-negative rodshave to assume this may be the source. Most importantly, she is improving, urine culture showing pansensitive Klebsiellaand we will finish her course of antibiotics with cefdinir. Got ceftriaxone here in the hospital todaywe will start p.o. antibiotics tomorrow. (2) Sepsis: - With sepsis with respiratory alkalosis on ABG, fever, tachypnea, tachycardia, acute metabolic encephalopathy, as above noted most presumably due to UTI. -Improved, off stress dose steroids, on p.o. antibiotics starting tomorrowstable for home (3) ZEENAT (acute kidney injury): - Due to sepsisimproved (4) Hypopituitarism: - s/p pituitary apoplexy and resection in 1994. - Continue levothyroxine 125 mcg daily. -Was on stress dose steroidsresumed home dosing (5) SIADH (syndrome of inappropriate ADH production): - History of, sodium improved (6) Hypertension: - Holding amlodipine 10 mg daily at least for today given low-normotensive pressures in setting of UTI/sepsis. (7) Dyslipidemia: - No current medications. (8) History of recurrent deep vein thrombosis (DVT): - Continue on Coumadin-- 2.5 mg --, 5 mg remainder of days. - INR 2.1 today. While I anticipate that her INR may rise a bit with antibiotics, she will be on a fairly short courseoutpatient follow-up (9) Anemia: - No signs or symptoms of blood loss (10) Mixed stress and urge urinary incontinence: (11) Folate deficiency: - Continue folic acid supplementation 400 mcg daily when patient is alert enough for PO meds. B12 borderline - on PO supplement - outpt f/u (12) Thiamine deficiency: - Continue thiamine supplementation 100 mg daily when patient is alert enough for PO meds. (13) Osteopenia: - Received a Reclast injection. (14) Vitamin D deficiency: - Continue calcitrol0.25 g BID (15) Vitamin B12 deficiency: - Continue B12 supplementation when patient is alert enough for PO meds. outpt f/u ?IM - since level still only ~380 despite PO supplementation (16) Depression: - Notes history of; no acute needs or current medications for this. Plan - stable for home Total Time Total Time Spent Total Time Spent (In Minutes): <30 Discharge Plan Discharge Items Patient Disposition: Home - Self-Care Reason For Visit: INFECTION [facility] Discharge Diagnosis: infection - improved. most likely UTI Activity: Resume your previous activity Non-emergency contact: Primary Care Provider Call non-emergency contact if: you have any medication questions Follow-up/Referrals: Francisca Elias CRNP [Primary Care Provider] - 06/18/22 3:00 pm Diet: Regular Addtl Attending Provider Instructions: Infectionthe pattern of fevers and confusion definitely fit with an infection. As we discussed, its not very common for somebody to have a urinary tract infection and have no urinary symptoms to show for it, but given that we see no other source of infection with you, and you got better with treatment for urinary tract infectionthat certainly makes the most sense as a "working diagnosis". Fortunately, most importantly, you are improving nicely. The bacteria on your urine culture was sensitive to almost all antibioticsyou were on IV ceftriaxone (Rocephin) which was getting the job done nicelyand to that end we will translate over to oral cefdinir (Omnicef) which is about as close as we can get to what you have been on IV. You will start the oral antibiotics tomorrow morningwill be 300 mg in the morning and in the evening for 4 more daysto round out 7 total days of treatment. Incidentals: Anytime somebody is on Coumadin and then on antibioticswe definitely want to keep a close eye on things. Your INR today is 2.1. More than likely that we will go a bit higher while you are on antibiotics, but given that you will be on them for a fairly short period of time, you probably do not need to do anything different as much as pain attention and have an INR checked if you have easier bruising than normal. Your vitamin B12 level was checkedand while it was technically normal, it was a bit lower than I would expect at 384. Sometimes people do not absorb oral B12 as well as they shouldyou might be absorbing it okay, but I would discuss with your primary care physician about either repeating levels in a few months to see if things are continuing to go up, or possibly supplementing with B12 injections from time to time Pending Studies at Discharge: No Stand-Alone Forms: My [facility], Smoking Cessation Medications and DC Order Prescriptions: New cefdinir 300 mg capsule 300 mg PO BID Qty: 8 0RF Continued hydrocortisone 10 mg tablet 10 mg PO .COMPLEX 90 Days Qty: 300 3RF Rx Instructions: 10 mg PO Take 1.5 tabs in the morning 0.5 tab in the evening Double dose in times of stress up to 4 tabs daily potassium chloride [Klor-Con M20] 20 mEq tablet,ER particles/crystals 20 meq PO BID Qty: 60 5RF amlodipine [Norvasc] 5 mg tablet 10 mg PO DAILY Qty: 180 3RF Rx Instructions: 2 tablet dose warfarin 5 mg tablet 5 mg PO SUMOWEFR Qty: 90 3RF Protocol: Dose Management Condition: Wednesday (Week One) Dose/Route: 5 mg Instruction: 1 x 5 mg tablet Condition: Wednesday Dose/Route: 2.5 mg Instruction: 0.5 x 5 mg tablets Condition: Wednesday Dose/Route: 5 mg Instruction: 1 x 5 mg tablet Condition: Wednesday Dose/Route: 2.5 mg Instruction: 0.5 x 5 mg tablets Condition: Dose/Route: 5 mg Instruction: 1 x 5 mg tablet Condition: Wednesday Dose/Route: 5 mg Instruction: 1 x 5 mg tablet Condition: Wednesday Dose/Route: 5 mg Instruction: 1 x 5 mg tablet Condition: Wednesday (Week Two) Dose/Route: 5 mg Instruction: 1 x 5 mg tablet Condition: Wednesday Dose/Route: 2.5 mg Instruction: 0.5 x 5 mg tablets Condition: Wednesday Dose/Route: 5 mg Instruction: 1 x 5 mg tablet Condition: Wednesday Dose/Route: 2.5 mg Instruction: 0.5 x 5 mg tablets Condition: Dose/Route: 5 mg Instruction: 1 x 5 mg tablet Condition: Wednesday Dose/Route: 2.5 mg Instruction: 0.5 x 5 mg tablets Condition: Wednesday Dose/Route: 5 mg Instruction: 1 x 5 mg tablet Protocol Text: Adjustment Start Date: Wednesday05/29/22 INR Value: 1.7 INR Date: 05/28/22 Recheck Date: 06/28/22 Rx Instructions: T-Th-SA-S oxybutynin chloride [Ditropan XL] 5 mg tablet extended release 24 hr 5 mg PO DAILY Qty: 90 1RF calcitriol 0.25 mcg capsule 0.25 mcg PO BID Qty: 60 5RF Rx Instructions: Noon and dinner (DME) Wheeled Walker Misc See Rx Instructions .ROUTE .MEDSUPPLY Qty: 1 0RF Rx Instructions: As directed levothyroxine 125 mcg tablet 125 mcg PO DAILY Qty: 30 2RF thiamine HCl (vitamin B1) [Vitamin B-1] 100 mg Tablet 100 mg PO QAM Qty: 30 0RF acetaminophen [Tylenol Extra Strength] 500 mg Tablet 1,000 mg PO Q6H PRN (Reason: Pain) warfarin 5 mg tablet See Rx Instructions .ROUTE .COMPLEX Protocol: Dose Management Condition: Wednesday (Week One) Dose/Route: 5 mg Instruction: 1 x 5 mg tablet Condition: Wednesday Dose/Route: 2.5 mg Instruction: 0.5 x 5 mg tablets Condition: Wednesday Dose/Route: 5 mg Instruction: 1 x 5 mg tablet Condition: Wednesday Dose/Route: 2.5 mg Instruction: 0.5 x 5 mg tablets Condition: Dose/Route: 5 mg Instruction: 1 x 5 mg tablet Condition: Wednesday Dose/Route: 5 mg Instruction: 1 x 5 mg tablet Condition: Wednesday Dose/Route: 5 mg Instruction: 1 x 5 mg tablet Condition: Wednesday (Week Two) Dose/Route: 5 mg Instruction: 1 x 5 mg tablet Condition: Wednesday Dose/Route: 2.5 mg Instruction: 0.5 x 5 mg tablets Condition: Wednesday Dose/Route: 5 mg Instruction: 1 x 5 mg tablet Condition: Wednesday Dose/Route: 2.5 mg Instruction: 0.5 x 5 mg tablets Condition: Dose/Route: 5 mg Instruction: 1 x 5 mg tablet Condition: Wednesday Dose/Route: 2.5 mg Instruction: 0.5 x 5 mg tablets Condition: Wednesday Dose/Route: 5 mg Instruction: 1 x 5 mg tablet Protocol Text: Adjustment Start Date: Wednesday05/29/22 INR Value: 1.7 INR Date: 05/28/22 Recheck Date: 06/28/22 Rx Instructions: 2.5 mg orally folic acid 400 mcg tablet 400 mcg PO DAILY@1200 cyanocobalamin (vitamin B-12) 500 mcg tablet 2,000 mcg PO DAILY@1200 Rx Instructions: Discharge Orders: Discharge Order (Routine); Ordered 06/11/22 Ordered By: Brennen Muhammad Admission Data Admit Date/Time: 06/09/22 14:01 Attending Provider: Brennen Muhammad Admit Provider: Suyapa Cao Primary Care Provider: Francicsa Elias Other Providers: Suyapa Cao Other Interventions: Discharge Summary Assessment (RN) Last Done: 06/11/22 13:27 Coding Level of Care Code D/C DAY MANAGEMENT <30 MINS Diagnoses UTI (urinary tract infection) N39.0 Sepsis A41.9 ZEENAT (acute kidney injury) N17.9 Hypopituitarism E23.0 SIADH (syndrome of inappropriate ADH production) E22.2 Hypertension I10 Dyslipidemia E78.5 History of recurrent deep vein thrombosis (DVT) Z86.718 Anemia D64.9 Mixed stress and urge urinary incontinence N39.46 Folate deficiency E53.8 Thiamine deficiency E51.9 Osteopenia M85.80 Vitamin D deficiency E55.9 Vitamin B12 deficiency E53.8 Depression F32.9
== END 2022-06-11 14:40 | disposition home or self-care (01) | DRG 871 ==
LOC: ED 11:36 → EDINP 14:01 → SUATTDRO 14:01 → 2S 16:35 → 3N 06-10 17:25
DX: Z96.641 Presence of right artificial hip joint; E87.3 Alkalosis; Z88.0 Allergy status to penicillin; G93.41 Metabolic encephalopathy; N39.0 Urinary tract infection, site not specified; A41.59 Other Gram-negative sepsis; E53.8 Deficiency of other specified B group vitamins; N39.46 Mixed incontinence; Z86.718 Personal history of other venous thrombosis and embolism; E51.9 Thiamine deficiency, unspecified; E23.0 Hypopituitarism; N17.9 Acute kidney failure, unspecified; E78.5 Hyperlipidemia, unspecified; F32.A Depression, unspecified; E22.2 Syndrome of inappropriate secretion of antidiuretic hormone; Z79.01 Long term (current) use of anticoagulants; Z88.5 Allergy status to narcotic agent; E55.9 Vitamin D deficiency, unspecified; Z87.440 Personal history of urinary (tract) infections; B96.1 Klebsiella pneumoniae [K. pneumoniae] as the cause of diseases classified elsewhere; M85.80 Other specified disorders of bone density and structure, unspecified site; I10 Essential (primary) hypertension; D64.9 Anemia, unspecified